=== PATIENT | male | born 1935 | race Caucasian/White ===

== ENCOUNTER 2016-09-09 11:58 | Emergency (ER) | payer OTHER ==
[~2016-09-09] VITALS: Ht 182.9 cm; Wt 81.6 kg
[2016-09-09] MEDS ORDERED: ASPIRIN81 M4 PO (12:24)
[2016-09-09] MEDS ORDERED: XANAX0.25 M1 PO (12:25)
[2016-09-09] MEDS ORDERED: LEXAPRO20 M1 PO (12:26)
[2016-09-09] MEDS ORDERED: LOMOTIL 2.5-0.1 EACH PO (12:26)
[2016-09-09] MEDS ORDERED: TRAZODONE HCL50 M1 PO (12:27)
[2016-09-09] MEDS ORDERED: AMLODIPINE BESY10 M1 PO (12:28)
[2016-09-09] MEDS ORDERED: TOPROL XL25 M1 PO (12:28)
[2016-09-09] MEDS ORDERED: LOVASTATIN40 M1 PO (12:28)
[2016-09-09] MEDS ORDERED: GERI MUCIL PO (12:29)
[2016-09-09] MEDS ORDERED: ACIDOPHILUS1 EACH PO (12:29)
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
[2016-09-09 13:13] LABS: ABSOLUTE BASOPHIL COUNT 0 /CUMM (0.0-0.2); ABSOLUTE EOSINOPHIL COUNT 0.1 /CUMM (0.0-0.7); ABSOLUTE GRANULOCYTE CT 6.2 /CUMM (1.4-6.5); ABSOLUTE LYMPH COUNT 1.3 /CUMM (1.2-3.4); ABSOLUTE MONOCYTE COUNT 0.6 /CUMM (0.10-0.60); BASOPHIL % 0.4 % (0.0-2.0); EOSINOPHIL % 1.3 % (0-5); HEMATOCRIT 35.1 % (42-52); MEAN CORPUSCULAR HGB 29.3 PG (27.0-31.0); MEAN CORPUSCULAR HGB CONC 33.3 G/DL (33.0-37.0); MEAN CORPUSCULAR VOLUME 87.9 FL (80.0-94.0); MEAN PLATELET VOLUME 8.6 FL (7.4-10.4); PLATELET COUNT 216 /CUMM (130-400); WHITE BLOOD CELL COUNT 8.2 /CUMM (4.8-10.8)
[2016-09-09 13:14] LABS: GRANULOCYTE % 75.1 % (42.2-75.2)
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
[2016-09-09 18:41] VITALS: BP 129/76
== END 2016-09-09 18:42 ==
LOC: ERH 11:58
PROVIDERS: Physician Assistant Medical
DX: F03.90 Unspecified dementia, unspecified severity, without behavioral disturbance, psychotic disturbance, mood disturbance, and anxiety (principal)
CPT/HCPCS: 80307; 81001; 93005; 93010; 96374; 96375; G0463; G0480; J1200; J1630

== ENCOUNTER 2017-05-18 16:24 | Inpatient (IN) | payer OTHER ==
[~2017-05-18 16:24] MED LIST: ACIDOPHILUS1 EACH PO; AMLODIPINE BESY10 M1 PO; ASPIRIN81 M4 PO; GERI MUCIL PO; LEXAPRO20 M1 PO; LOMOTIL 2.5-0.1 EACH PO; LOVASTATIN40 M1 PO; TOPROL XL25 M1 PO; TRAZODONE HCL50 M1 PO; XANAX0.25 M1 PO
--- NOTE | 2017-05-18 16:37 | ED MVC/FALL/TRAUMA COMPLAINT ---
History of Present Illness General Chief Complaint: Fall Stated Complaint: BIBA S/P FALL W HEADLAC, CONFUSED AT BASELINE Source: old records, EMS Exam Limitations: dementia Vital Signs & Intake/Output Vital Signs & Intake/Output Vital Signs Date Time Temp Pulse Resp B/P B/P Pulse O2 O2 Flow FiO2 Mean Ox Delivery Rate 05/18 2026 98.7 72 18 148/73 95 Room Air 05/18 1637 97 Room Air 05/18 1631 79 18 101/58 99 Room Air Allergies Coded Allergies: No Known Allergies (05/18/17) Reconcile Medications Alprazolam (Xanax) 0.25 MG TABLET 1 TAB PO QPM UNKNOWN (Reported) Amlodipine Besylate 10 MG TABLET 1 TAB PO DAILY HEART (Reported) Aspirin (Aspirin*) 81 MG TAB.CHEW 1 TAB PO DAILY HEART HEALTH (Reported) Diphenoxylate HCl/Atropine (Lomotil 2.5-0.025 MG Tablet) 2.5 MG-0.025 MG TABLET 1 TAB PO BID DIARRHEA (Reported) Escitalopram Oxalate (Lexapro) 20 MG TABLET 1 TAB PO DAILY MENTAL HEALTH ( Reported) Lactobacillus Acidophilus (Acidophilus) 1 EACH CAPSULE 1 CAP PO DAILY GI ( Reported) Lovastatin 40 MG TABLET 1 TAB PO 1800 CHOLESTEROL (Reported) with food Metoprolol Succ XL (Toprol XL) 25 MG TAB 1 TAB PO DAILY HEART (Reported) Psyllium Husk/Aspartame (Iris-Mucil Powder) 3.4 GRAM/5.8 GRAM POWDER 1 TSP PO DAILY GI (Reported) Trazodone HCl 50 MG TABLET 0.25 TAB PO BID MENTAL HEALTH (Reported) Triage Note: 81M BIBA FROM [facility] S/P ?WITNESSED FALL. PT ARRIVES WITH BLOOD TO FACE AND GAUZE WRAP APPLIED TO HEAD. PER [facility] STAFF PT HAS HX OF DEMENTIA AND IS ACTING AT BASELINE. NO FACIAL DROOP OR FOCAL NEURODEFICITS OBSERVED. PERRLA. CONFUSED. -CSPINE TENDERNESS ON PALPATION. DENIES ABD PAIN, N/V/D. BLEEDING CONTROLLED AT THIS TIME. PAPERWORK IN CHART Triage Nurses Notes Reviewed? yes Onset: Abrupt Duration: constant Timing: single episode today Severity: moderate Severity Numbers: 5 HPI: Patient is a 81-year-old male with a past medical history of Alzheimer's dementia which history is limited however patient resides at [facility] for an unwitnessed fall today where patient suffered a gash to his for head in which bleeding was controlled prior to arrival. Staff indicates the patient is acting at baseline (Trevon Felix) Past History Travel History Traveled to [place] past 21 day No Medical History Any Pertinent Medical History? see below for history Neurological: Alzheimer's disease, dementia EENT: NONE Cardiovascular: hypertension, hyperlipidemia, RIGHT BUNDLE BRANCH BLOCK Respiratory: NONE Gastrointestinal: NONE Hepatic: NONE Renal: NONE Musculoskeletal: gout, osteoarthritis Psychiatric: depression, MDD Endocrine: diabetes Blood Disorders: anemia Surgical History Surgical History: non-contributory Psychosocial History Who do you live with Other (see notes) What is your primary language Salvadorean Tobacco Use: Never used Family History Hx Contributory? No (Trevon Felix) Review of Systems Review of Systems Constitutional: Reports: no symptoms. Eyes: Reports: no symptoms. Ears, Nose, Throat, Mouth: Reports: no symptoms. Respiratory: Reports: no symptoms. Cardiovascular: Reports: no symptoms. Gastrointestinal/Abdominal: Reports: no symptoms. Genitourinary: Reports: no symptoms. Musculoskeletal: Reports: see HPI. Skin: Reports: see HPI. Neurological/Psychological: Reports: see HPI. All Other Systems: Reviewed and Negative (Trevon Felix) Physical Exam Physical Exam General Appearance: no apparent distress, alert, comfortable Head: evidence of injury Eyes: Bilateral: normal appearance, PERRL. Neck: normal inspection, supple, full range of motion, no midline tenderness Respiratory: normal breath sounds, chest non-tender Cardiovascular: regular rate/rhythm Gastrointestinal: normal bowel sounds, soft, non-tender Neurologic/Psych: awake, alert Comments: Left wrist noted generalized tenderness and ecchymosis Bilateral shoulders nontender full active range of motion Bilateral elbows nontender full active range of motion Bilateral lower extremities full active range of motion nontender hip knee and ankle Diagram Head: 1) Noted 4 cm subcutaneous gaping irregular laceration with noted dry blood Core Measures ACS in differential dx? No CVA/TIA Diagnosis No Sepsis Present: No Sepsis Focused Exam Completed? No (Trevon Felix) Progress Differential Diagnosis: abd injury, C/T/L spine injury, ext injury, ICH, pelvis injury, pnemothorax, spinal cord injury, FX Plan of Care: Orders Procedure Date/time Status Heart Healthy Diet 05/19 B Active Pathway - chart 05/18 2116 Active House Staff 05/18 2116 Active Patient Data 05/18 2116 Active Code Status 05/18 2116 Active Patient Data 05/18 2010 Active RAPID VIRAL INFLUENZA A 05/18 1956 Complete URINALYSIS 05/18 1956 Complete ED Holding Orders 05/18 1852 Active Vital Signs 05/18 1852 Active Code Status 05/18 185 Complete Admit to inpatient 05/18 185 Active TROPONIN LEVEL 05/18 1806 Complete COMPREHENSIVE METABOLIC PANEL 05/18 1806 Complete CBC WITHOUT DIFFERENTIAL 05/18 1806 Complete EKG 05/18 180 Active Intake & Output 05/18 1633 Active VTE Mechanical Prophylaxis 05/18 UNK Active Vital Signs 05/18 UNK Active MISTAKE 05/18 UNK Active Intake & Output 05/18 UNK Active Hemoccult 05/18 UNK Active FingerStick- Glucose 05/18 UNK Active CMS- Neurovascular Checks 05/18 UNK Active Laboratory Tests 05/18/171958: Urinalysis LIGHT H, Urine Color YEL, Urine Clarity HAZY H, Urine pH 6.0, Ur Specific Edmond[place] 1.025, Urine Protein TRACE H, Urine Ketones NEG, Urine Nitrite NEG, Urine Bilirubin NEG, Urine Urobilinogen 0.2, Ur Leukocyte Esterase MOD H, Ur Microscopic SEDIMENT EXAMINED, Urine WBC > 75 H, Ur Epithelial Cells RARE, Urine Bacteria RARE H, Urine Mucus FEW, Urine Hemoglobin NEG, Urine Glucose NEG 05/18/171954: Anion Gap 11, Estimated GFR 42 L, BUN/Creatinine Ratio 18.8, Glucose 108 H, Calcium 9.5, Total Bilirubin 0.3, AST 21, ALT 29, Alkaline Phosphatase 92, Troponin I < 0.01, Total Protein 6.3, Albumin 3.6, Globulin 2.7, Albumin/ Globulin Ratio 1.3, CBC w Diff NO MAN DIFF REQ, RBC 3.63 L, MCV 88.3, MCH 29.2, MCHC 33.0, RDW 13.5, MPV 8.4, Gran % 82.2 H, Lymphocytes % 11.5 L, Monocytes % 5.5, Eosinophils % 0.4, Basophils % 0.4, Absolute Granulocytes 10.9 H, Absolute Lymphocytes 1.5, Absolute Monocytes 0.7 H, Absolute Eosinophils 0.1, Absolute Basophils 0 Microbiology 05/18 1958 NASOPHARYN: Influenza Virus A & B Rapid Smear - COMP Per nursing staff that patient is acting at baseline Patient denies any current complaints Patient has no neurological deficits on exam however I did discuss CT scan results of critical findings of focal subarachnoid hemorrhage I discussed patient's admission to who was aware I discussed patient with neurosurgeon Dr. Kaur was aware and at this time advised no emergent warranting of intervention and will consult Discuss admission with surgical PA I also discussed patient's fracture with Dr. Winn who advised patient to be placed in anterior posterior wrist splint and thumb spica Pre-and post-neurovascular was intact after splinting was applied in the emergency room to left thumb and wrist Diagnostic Imaging: Viewed by Me: Radiology Read, CT Scan. Discussed w/RAD: CT Scan. Radiology Impression: acute abnormality, fracture Initial ED EK BPM,NSR Comments: PATIENT: TERRANCE PANDEY PRESENT AGE: 81 PATIENT ACCOUNT NO: [id number] : 37 LOCATION: [facility] ORDERING PHYSICIAN: Trevon DEAN SERVICE DATE: 05/18/17 EXAM TYPE: CAT - CT CERV SPINE WO IV CONTRAST; CT HEAD WO IV CONTRAST EXAMINATION: CT HEAD W/O IV CONTRAST CT CERVICAL SPINE W/O IV CONTRAST CLINICAL INFORMATION: 81-year-old male with history of head trauma and dementia. COMPARISON: None TECHNIQUE: Head - Contiguous axial imaging of the head was performed from the skull base to the vertex without the administration of intravenous contrast, and axial images are reconstructed at 0.625 mm, 2.5 mm and 5 mm slice thickness. Cervical spine - A volumetric, helical CT acquisition of the cervical spine was obtained without contrast; in addition to the standard set of axial images, multiplanar reformatted images were provided in the coronal and sagittal imaging planes. DLP: 1286 mGy-cm (total) FINDINGS: HEAD: Soft tissue laceration of the left frontal scalp. The underlying calvarium is intact. There is focal hyperdense subarachnoid hemorrhage overlying the anteroinferior aspect left inferior frontal gyrus (image 19, series 4). [id number]-zy-[id number] atrophy of cerebral hemispheres with commensurate prominence of ventricles, sulci and cisterns. Atherosclerotic calcification of cavernous carotid arteries. No acute findings within the posterior fossa. The stanley-white matter differentiation is maintained. No evidence of an acute major vascular territory infarction. The visualized paranasal sinuses, mastoid air cells and middle ear cavities are well aerated. Lenses have been extracted from each globe. No acute fracture or malalignment at either temporomandibular joint. CERVICAL SPINE: There is kyphotic curvature of the degenerated cervical spine. Multilevel facet osteoarthritis, most severe on the left at C2-C3 and C3-C4, and there is facet ankylosis at C4-C5. The degenerative disc disease is severe at C4-C5, C5-C6, C6-C7 and C7-T1. There is minimal degenerative anterolisthesis at C3-C4. No acute fracture, traumatic subluxation or prevertebral soft tissue swelling. No acute findings in visualized lung apices. Thyroid gland is unremarkable. No fluid collections within the neck. Atherosclerotic calcification of carotid bulbs and proximal ICAs. IMPRESSION: 1. Soft tissue laceration of the left frontal scalp. In this region, there is focal subarachnoid hemorrhage overlying the anteroinferior aspect of the left inferior frontal gyrus. No evidence of parenchymal hemorrhage, subdural hemorrhage, mass or midline shift. 2. No acute findings within the degenerated, kyphotic cervical spine. The critical test result was discussed Trevon Martinez at 6:37 PM on 05/18/2017 it was ascertained that the content and the importance of the findings was understood at the time of the direct communication. DICTATED BY: Jonnie Albright MD DATE/TIME DICTATED:05/18/171820 POSTAL SORTING OFFICER:DANIE DATE/TIME TRANSCRIBED:05/18/171820 (Trevon Felix) Departure Departure Disposition: STILL A PATIENT Condition: Guarded Clinical Impression Primary Impression: Subarachnoid bleed Secondary Impressions: Distal end of ulna fracture, closed, Forehead laceration Referrals: Lio CHASE,Leonie Story (PCP/Family) Departure Forms: Customer Survey General Discharge Information Admission Note Spoke With: Anton CHASE,Sonya Documentation of Exam: Documentation of any treatments & extenuating circumstances including Concerns Regarding Discharge (functional status, medication knowledge or non-compliance, living conditions, etc.) that warrant an admission rather than observation: [ Patient requires ICU admission for concerns of subarachnoid hemorrhage patient requires frequent neurological checks repeat imaging neurosurgery consultation orthopedic consultation] (Trevon Felix) Departure Comments I have seen and personally examined the patient. The case was discussed with Dr. Rodriguez who will consult. The case was discussed with Dr. Kaur. The surgical DIANNE Lopes has been down and evaluated the patient. (Herman Granados DO) Procedures Splinting Manual Alignment Performed: No Hand-Made Type: orthoglass Splint: thumb spica Splint Applied By: splint applied by me Pre-Proc Neuro Vasc Exam: normal Post-Proc Neuro Vasc Exam: normal Laceration/Wound Repair Laceration/Wound Repair: Wound Location: head Wound's Depth, Shape: irregular, subcutaneous Wound Length (cm): 4 Wound Explored: clean, no foreign body removed, irrigated extensively Irrigated w/ Saline (ccs): 360 Betadine Prep? Yes Anesthesia: 1% lidocaine Volume Anesthetic (ccs): 4 Wound Repaired With: sutures Suture Size/Type: 5:0 Number of Sutures: 6 Layer Closure? No Progress: Initially L.E.T WAS APPLIED Margins were revised the suture placement patient tolerated well (Trevon Felix) Critical Care Note Critical Care Note Critical Care Time: 30-74 min (Trevon Felix)
--- NOTE | 2017-05-18 18:15 | RADIOLOGY REPORT ---
EXAMINATION: XR WRIST, LEFT CLINICAL INFORMATION: Left wrist pain after trauma COMPARISON: None TECHNIQUE: Left wrist, 2 views FINDINGS: There is a nondisplaced fracture involving the anterior cortex of the distal radial metaphysis. Also, there is an obliquely oriented fracture through the lateral cortex of the distal ulnar metaphysis resulting in 0.2 cm of cortical bone offset in this region. The radiocarpal and ulnocarpal joint spaces are maintained. The scapholunate distance is 0.4 cm wide. This suggests possibility of stretching or tearing of the scapholunate ligament. Is mild osteoarthritis of the first carpometacarpal joint. Soft tissues are swollen around the wrist. Peripheral vascular calcifications are seen. IMPRESSION: 1. Acute fractures of the distal radius and ulna are not significantly displaced. 2. Scapholunate distance is mildly widened; this suggests possibility of stretching or tearing of the scapholunate ligament.
--- NOTE | 2017-05-18 18:41 | CT SCAN REPORT ---
EXAMINATION: CT HEAD W/O IV CONTRAST CT CERVICAL SPINE W/O IV CONTRAST CLINICAL INFORMATION: 81-year-old male with history of head trauma and dementia. COMPARISON: None TECHNIQUE: Head - Contiguous axial imaging of the head was performed from the skull base to the vertex without the administration of intravenous contrast, and axial images are reconstructed at 0.625 mm, 2.5 mm and 5 mm slice thickness. Cervical spine - A volumetric, helical CT acquisition of the cervical spine was obtained without contrast; in addition to the standard set of axial images, multiplanar reformatted images were provided in the coronal and sagittal imaging planes. DLP: 1286 mGy-cm (total) FINDINGS: HEAD: Soft tissue laceration of the left frontal scalp. The underlying calvarium is intact. There is focal hyperdense subarachnoid hemorrhage overlying the anteroinferior aspect left inferior frontal gyrus (image 19, series 4). Szqivmwa-sh-ksljkr atrophy of cerebral hemispheres with commensurate prominence of ventricles, sulci and cisterns. Atherosclerotic calcification of cavernous carotid arteries. No acute findings within the posterior fossa. The stanley-white matter differentiation is maintained. No evidence of an acute major vascular territory infarction. The visualized paranasal sinuses, mastoid air cells and middle ear cavities are well aerated. Lenses have been extracted from each globe. No acute fracture or malalignment at either temporomandibular joint. CERVICAL SPINE: There is kyphotic curvature of the degenerated cervical spine. Multilevel facet osteoarthritis, most severe on the left at C2-C3 and C3-C4, and there is facet ankylosis at C4-C5. The degenerative disc disease is severe at C4-C5, C5-C6, C6-C7 and C7-T1. There is minimal degenerative anterolisthesis at C3-C4. No acute fracture, traumatic subluxation or prevertebral soft tissue swelling. No acute findings in visualized lung apices. Thyroid gland is unremarkable. No fluid collections within the neck. Atherosclerotic calcification of carotid bulbs and proximal ICAs. IMPRESSION: 1. Soft tissue laceration of the left frontal scalp. In this region, there is focal subarachnoid hemorrhage overlying the anteroinferior aspect of the left inferior frontal gyrus. No evidence of parenchymal hemorrhage, subdural hemorrhage, mass or midline shift. 2. No acute findings within the degenerated, kyphotic cervical spine. The critical test result was discussed Trevon Martinez at 6:37 PM on 05/18/2017 it was ascertained that the content and the importance of the findings was understood at the time of the direct communication.
[2017-05-18 20:21] LABS: ABSOLUTE BASOPHIL COUNT 0 /CUMM (0.0-0.2); ABSOLUTE EOSINOPHIL COUNT 0.1 /CUMM (0.0-0.7); ABSOLUTE GRANULOCYTE CT 10.9 /CUMM (1.4-6.5); ABSOLUTE LYMPH COUNT 1.5 /CUMM (1.2-3.4); ABSOLUTE MONOCYTE COUNT 0.7 /CUMM (0.10-0.60); BASOPHIL % 0.4 % (0.0-2.0); EOSINOPHIL % 0.4 % (0-5); GRANULOCYTE % 82.2 % (42.2-75.2); HEMATOCRIT 32.1 % (42-52); MEAN CORPUSCULAR HGB 29.2 PG (27.0-31.0); MEAN CORPUSCULAR VOLUME 88.3 FL (80.0-94.0); MEAN PLATELET VOLUME 8.4 FL (7.4-10.4); PLATELET COUNT 281 /CUMM (130-400); RBC DISTRIBUTION WIDTH 13.5 % (11.5-14.5); RED BLOOD CELL CT 3.63 /CUMM (4.70-6.10); WHITE BLOOD CELL COUNT 13.3 /CUMM (4.8-10.8)
--- NOTE | 2017-05-18 20:58 | History & Physical ---
Markell Dunaway 05/18/172056: General Information and HPI MD Statement: I have seen and personally examined TERRANCE PANDEY and documented this H&P. Source of Information: old records, [facility] staff Exam Limitations: unable to give history, confusion, dementia History of Present Illness: This is a 81 year-old gentleman with past medical history significant for Alzheimer's disease, hyperlipidemia, iron deficiency anemia, gout, hypertension, major depressive disorder, type 2 diabetes, osteoarthritis, right bundle branch block who was brought to the hospital from [facility] ([facility] after having an episode of unwitnessed fall with laceration to his head. The patient is confused and disoriented. He is unable to provide any history or review of system. However, he denies having any headache, chest pain, dizziness , lightheadedness, nausea, vomiting, abdominal pain. He does not remember what happened today or why he was brought to the hospital. I contacted [facility] and spoke with the nursing supervisor ship maintenance services Ms. Reynaga. She did not personally take care of the patient today however was able to provide some history. Apparently patient was found on the floor around 3:50 PM today. His alert and occasionally confused at baseline has episodes of combativeness. He is able to walk independently. At baseline, he is able to communicate and express himself if he has any complaints/symptoms. Angie Reynaga is unsure what exactly happened when patient fell. Upon presentation to the ED the patient was noted to have left frontal scalp soft tissue laceration and focal arachnoid hemorrhage on the anterior aspect of the left inferior frontal gyrus. Also he had an acute fracture of distal radius and ulna which was not significantly displaced. Neurosurgery and orthopedic was consulted in the ED. Allergies/Medications Allergies: Coded Allergies: No Known Allergies (05/18/17) Home Med list Alprazolam (Xanax) 0.25 MG TABLET 1 TAB PO QPM UNKNOWN (Reported) Amlodipine Besylate 10 MG TABLET 1 TAB PO DAILY HEART (Reported) Aspirin (Aspirin*) 81 MG TAB.CHEW 1 TAB PO DAILY HEART HEALTH (Reported) Diphenoxylate HCl/Atropine (Lomotil 2.5-0.025 MG Tablet) 2.5 MG-0.025 MG TABLET 1 TAB PO BID DIARRHEA (Reported) Donepezil HCl (Aricept) 10 MG TABLET 1 TAB PO QPM mental health (Reported) Escitalopram Oxalate (Lexapro) 20 MG TABLET 1 TAB PO DAILY MENTAL HEALTH ( Reported) Lactobacillus Acidophilus (Acidophilus) 1 EACH CAPSULE 1 CAP PO DAILY GI ( Reported) Lovastatin 40 MG TABLET 1 TAB PO 1800 CHOLESTEROL (Reported) with food Memantine HCl (Namenda XR) 28 MG CAP.SPR.24 1 CAP PO DAILY dementia (Reported ) Metoprolol Succ XL (Toprol XL) 25 MG TAB 1 TAB PO DAILY HEART (Reported) Multivitamin (One Daily Multivitamin) 1 EACH TABLET 1 TAB PO DAILY heart health (Reported) Psyllium Husk/Aspartame (Iris-Mucil Powder) 3.4 GRAM/5.8 GRAM POWDER 1 TSP PO DAILY GI (Reported) Trazodone HCl 50 MG TABLET 0.25 TAB PO BID MENTAL HEALTH (Reported) Past History Travel History Traveled to [place] past 21 day No Medical History Neurological: Alzheimer's disease, dementia EENT: NONE Cardiovascular: hypertension, hyperlipidemia, RIGHT BUNDLE BRANCH BLOCK Respiratory: NONE Gastrointestinal: NONE Hepatic: NONE Renal: NONE Musculoskeletal: gout, osteoarthritis Psychiatric: depression, MDD Endocrine: diabetes Blood Disorders: anemia Surgical History Surgical History: non-contributory Review of Systems Review of Systems Constitutional: Reports: no symptoms. Comments Patient is unable to provide any review of systems. Exam & Diagnostic Data Last 24 Hrs of Vital Signs/I&O Vital Signs Date Time Temp Pulse Resp B/P B/P Pulse O2 O2 Flow FiO2 Mean Ox Delivery Rate 05/18 2359 98 Room Air 05/18 235 98.6 75 22 130/70 98 Room Air 05/18 2200 99.3 76 18 136/78 95 05/18 2140 95 Room Air 05/18 2139 98.9 79 20 167/94 96 Room Air 05/18 2026 98.7 72 18 148/73 95 Room Air 05/18 1637 97 Room Air 05/18 1631 79 18 101/58 99 Room Air Intake & Output 05/19 0800 05/19 0000 05/18 1600 Intake Total 120 Output Total Balance 120 Intake, Oral 120 Physical Exam General Appearance oriented to person only, Confused Skin left frontal laceration s/p suture Skin Temp/Moisture Exam: Warm/Dry HEENT see skin exam Neck Supple Lymphatic Axillary nl, Cervical nl Cardiovascular Regular Rate, Normal S1, Normal S2, No Murmurs, Gallops, Rubs Lungs Clear to Auscultation, Normal Air Movement, ant auscultation Abdomen Normal Bowel Sounds, Soft, No Tenderness, No Hepatospenomegaly, No Masses Neurological Normal Tone, Patient not cooperative with complete neuro exam. Extremities No Clubbing, No Cyanosis, No Edema, Normal Pulses, No Tenderness/ Swelling, Left wrist in splint, ROM and sensation intact in RUE and both LEs Diagnostic Data EKG Results Right bundle branch block, sinus rhythm, rate 74, no significant ST-T wave abnormalities compared to prior EKG Other Results Left wrist xray: 1. Acute fractures of the distal radius and ulna are not significantly displaced.2. Scapholunate distance is mildly widened; this suggests possibility of stretching or tearing of the scapholunate ligament. Head and cervical spine CT: 1. Soft tissue laceration of the left frontal scalp. In this region, there is focal subarachnoid hemorrhage overlying the anteroinferior aspect of the left inferior frontal gyrus. No evidence of parenchymal hemorrhage, subdural hemorrhage, mass or midline shift. 2. No acute findings within the degenerated, kyphotic cervical spine. Assessment/Plan Assessment: This is a 81 year-old gentleman with past medical history significant for Alzheimer's disease, hyperlipidemia, iron deficiency anemia, gout, hypertension, major depressive disorder, type 2 diabetes, osteoarthritis, right bundle branch block who was brought to the hospital from [facility]) after having an episode of unwitnessed fall with laceration to his head. Upon presentation to the ED the patient was noted to have left frontal scalp soft tissue laceration and focal arachnoid hemorrhage on the anterior aspect of the left inferior frontal gyrus. Also he had an acute fracture of distal radius and ulna which was not significantly displaced. Neurosurgery and orthopedic was consulted in the ED. Problem list: #Subarachnoid hemorrhage #Acute fracture of distal radius and ulna #Alzheimer's dementia Plan * Monitor in the ICU * Neuro checks every 2 hours * Avoid blood pressure over 140/80 Follow-up neurosurgery recommendations * NPO * Avoid ASA, NSAIDS, ACs * Avoid sedatives /opioids * Vascular imaging as per neurosurgery * Avoid Rodriguez catheter * Sitter * Patient reported to have type 2 diabetes however not on any diabetic medications, will monitor Accu-Cheks; insulin sliding scale if needed. * DVT PPX ALPS * Patient is DNI/DNR As Ranked By This Provider Problem List: 1. Subarachnoid bleed 2. Dementia 3. Head trauma Core Measures/Misc (11/29) Acute Coronary Syndrome ACS Diagnosis: No Congestive Heart Failure Congestive Heart Failure Diagnosis No Cerebrovascular Accident CVA/TIA Diagnosis: No VTE (View Protocol) VTE Risk Factors Age>40 No Mechanical VTE Prophylaxis d/t N/A MechProphylax Ordered No VTE Pharm Prophylaxis d/t Other (SAH) Sepsis (View protocol) Sepsis Present: No Anton CHASE, [facility] 05/18/17 2317: Attending MD Review Statement Attending Statement Attending MD Statement: examined this patient, discuss w/resident/PA/CMM INSPECTOR, agreed w/resident/PA/CMM INSPECTOR, reviewed images, amended to note Attending Assessment/Plan: 81 yo M with advanced Alzheimer's dementia, depression, HTN, T2DM, CKD stage 3, OA, NAVEED, gout, who is a resident of [facility], is sent in after an unwitnessed fall at the facility resulting in a large laceration to the left temporal region. Patient is confused at baseline, does not provide any history. He currently denies any pain, dizziness, palpitations, dyspnea or chest discomfort. Vitals stable. Limited neuro exam is nonfocal, patient moving all extremities, no obvious facial droop, speech is clear, Left forehead/temporal region laceration is sutured dressing+. Left upper extremity is splinted. Peripheral pulses well felt. Chest clear anteriorly, Heart S1S2 regular. LE: no edema. Labs: WBC 13.3, BUN 30, creat 1.6 (baseline 1.3 1.4), trop neg, UA trace proteinuria, WBC> 75. CT head/cervical spine: soft tissue laceration of left frontal scalp, focal subarachnoid hemorrhage+, no parenchymal hemorrhage or SDH. Spine intact. Wrist Xray: acute fracture of distal radius and ulna not significantly displaced. ?stretching or tearing of scapholunate ligament. EKG: sinus rhythm, RBBB, Qtc 462. Assessment and plan: 1. Unwitnessed fall, no LOC 2. Advanced alzheimer's dementia 3. Focal subarachnoid hemorrhage 4. Left distal radius-ulna fracture 5. Forehead laceration sutured in the ER 6. Leukocytosis likely reactive 7. ELIAN on CKD stage 3 - Admit to ICU - Vitals Q1 hour - Neurochecks Q2 - NPO for now - Fall precautions - Neurosurgery (Dr. Kaur) consulted by ER, no surgical intervention at this point - Repeat CT head in AM - Watch for any mental status changes - Ortho consult (Dr. Winn) - Left upper extremity wrist splint placed in ER - Neurovascular checks Q2 - Pain management with Tylenol - Hold aspirin. No NSAIDs or opiates - Gentle hydration - CRCU consult - Maintain sitter as patient is confused and tends to pick on lines and forehead dressing - Resume home meds from AM namenda, lexapro, metoprolol, lovastatin, amlodipine and donapezil. - Hold trazodone and ativan for now - Forehead laceration suture removal in 7-10 days, local dressing, watch for bleeding DVT ppx Alps. DNR/I. TTS > 35 mins.
[2017-05-18 22:00] VITALS: BP 136/78
--- NOTE | 2017-05-18 23:18 | Admission Certification ---
Admission Certification Certification Statement - As attending physician, I certify that at the time of - admission, based on clinical presentation, severity of - symptoms, need for further diagnostic testing and - therapeutic interventions, and risk of adverse outcomes - without in-hospital treatment, in my clinical assessment, - this patient requires an acute hospital stay for a minimum - of two nights or longer. I have also considered psychsocial - factors such as support system, advanced age, financial - issues, cognitive issues, and failed out-patient treatments, - past re-admission history, safety of patient, and lack of - compliance as applicable. Specific rationale supporting this admission is: Unwitnessed fall, focal SAH, left wrist distal radius and ulna fracture, needs frequent neurochecks and 24 hour ICU level of care.
--- NOTE | 2017-05-18 23:34 | Cons- Neurosurgical ---
General Information and HPI Consulting Request Date of Consult: 05/18/17 Requested By: Anton CHASE,Sonya Reason for Consult: Intracranial bleed/head injury Source of Information: patient, old records, ER staff Exam Limitations: dementia History of Present Illness: 81-year-old male with Alzheimer's dementia who resides in nursing facility presents to the emergency department after an unwitnessed fall which she was found on the floor with a laceration to left side of the forehead. Per the nursing staff at the extended care facility, patient is at baseline mental status where he is demented and confused. Upon arrival to the emergency room they tend to his laceration and CT scan was ordered of the head and neck as well as x-rays of the left wrist. CT scan positive for intracranial hemorrhage. Left wrist x-rays positive for fracture which has already been splinted by the ER staff. At time of my evaluation patient is resting comfortably in the ER, he has no complaints, he denies any pain, he does not recall the events leading to his fall and he is pleasantly confused Allergies/Medications Allergies: Coded Allergies: No Known Allergies (05/18/17) Home Med List: Alprazolam (Xanax) 0.25 MG TABLET 1 TAB PO QPM UNKNOWN (Reported) Amlodipine Besylate 10 MG TABLET 1 TAB PO DAILY HEART (Reported) Aspirin (Aspirin*) 81 MG TAB.CHEW 1 TAB PO DAILY HEART HEALTH (Reported) Diphenoxylate HCl/Atropine (Lomotil 2.5-0.025 MG Tablet) 2.5 MG-0.025 MG TABLET 1 TAB PO BID DIARRHEA (Reported) Escitalopram Oxalate (Lexapro) 20 MG TABLET 1 TAB PO DAILY MENTAL HEALTH ( Reported) Lactobacillus Acidophilus (Acidophilus) 1 EACH CAPSULE 1 CAP PO DAILY GI ( Reported) Lovastatin 40 MG TABLET 1 TAB PO 1800 CHOLESTEROL (Reported) with food Metoprolol Succ XL (Toprol XL) 25 MG TAB 1 TAB PO DAILY HEART (Reported) Psyllium Husk/Aspartame (Iris-Mucil Powder) 3.4 GRAM/5.8 GRAM POWDER 1 TSP PO DAILY GI (Reported) Trazodone HCl 50 MG TABLET 0.25 TAB PO BID MENTAL HEALTH (Reported) Past History Medical History Neurological: Alzheimer's disease, dementia EENT: NONE Cardiovascular: hypertension, hyperlipidemia, RIGHT BUNDLE BRANCH BLOCK Respiratory: NONE Gastrointestinal: NONE Hepatic: NONE Renal: UTI Musculoskeletal: gout, osteoarthritis Psychiatric: depression, MDD Endocrine: diabetes Blood Disorders: anemia Surgical History Pertinent Surgical History: non-contributory Psychosocial History Where Do You Live? Extended Care Facility Smoking Status: Unknown If Ever Smoked Review of Systems Review of Systems: Unable to determine secondary to patient's dementia Exam & Diagnostic Data Vital Signs and I&O Vital Signs Date Time Temp Pulse Resp B/P B/P Pulse O2 O2 Flow FiO2 Mean Ox Delivery Rate 05/18 2199 99.3 76 18 136/78 95 05/18 2140 95 Room Air 05/18 2139 98.9 79 20 167/94 96 Room Air 05/18 2026 98.7 72 18 148/73 95 Room Air 05/18 1637 97 Room Air 05/18 1631 79 18 101/58 99 Room Air Physical Exam: Well-developed well-nourished no apparent distress. HEENT: Laceration to left side of the superior forehead. No active bleeding. Mild swelling to this area as well Extraocular motions intact, pupils equally round and reactive. Neck: Supple, no lymphadenopathy, no neck pain, full range of motion Heart: Regular rate and rhythm no murmur Respiratory: No respiratory distress clear to auscultation bilateral Abdomen: Soft nontender nondistended Extremities: No edema, no calf pain Left upper extremity splinted, neurovascularly intact. All 4 extremities are neurovascularly intact with sensation motor grossly intact , no known deficits however patient's exam is somewhat limited secondary to his baseline dementia Neuro: Alert and pleasantly confused Skin: Warm and dry, no rash on exposed skin Last 24 Hours of Labs: Laboratory Tests 05/18 Chemistry Sodium (137 - 145 mmol/L) 139 Potassium (3.5 - 5.1 mmol/L) 4.4 Chloride (98 - 107 mmol/L) 104 Carbon Dioxide (22 - 30 mmol/L) 24 Anion Gap (5 - 16) 11 BUN (9 - 20 mg/dL) 30 H Creatinine (0.7 - 1.2 mg/dL) 1.6 H Estimated GFR (>60 ml/min) 42 L BUN/Creatinine Ratio (7 - 25 %) 18.8 Glucose (65 - 99 mg/dL) 108 H Calcium (8.4 - 10.2 mg/dL) 9.5 Total Bilirubin (0.2 - 1.3 mg/dL) 0.3 AST (17 - 59 U/L) 21 ALT (21 - 72 U/L) 29 Alkaline Phosphatase (< 127 U/L) 92 Troponin I (<0.11 ng/ml) < 0.01 Total Protein (6.3 - 8.2 g/dL) 6.3 Albumin (3.5 - 5.0 g/dL) 3.6 Globulin (1.9 - 4.2 gm/dL) 2.7 Albumin/Globulin Ratio (1.1 - 2.2 %) 1.3 Hematology CBC w Diff NO MAN DIFF REQ WBC (4.8 - 10.8 /CUMM) 13.3 H RBC (4.70 - 6.10 /CUMM) 3.63 L Hgb (14.0 - 18.0 G/DL) 10.6 L Hct (42 - 52 %) 32.1 L MCV (80.0 - 94.0 FL) 88.3 MCH (27.0 - 31.0 PG) 29.2 MCHC (33.0 - 37.0 G/DL) 33.0 RDW (11.5 - 14.5 %) 13.5 Plt Count (130 - 400 /CUMM) 281 MPV (7.4 - 10.4 FL) 8.4 Gran % (42.2 - 75.2 %) 82.2 H Lymphocytes % (20.5 - 51.1 %) 11.5 L Monocytes % (1.7 - 9.3 %) 5.5 Eosinophils % (0 - 5 %) 0.4 Basophils % (0.0 - 2.0 %) 0.4 Absolute Granulocytes (1.4 - 6.5 /CUMM) 10.9 H Absolute Lymphocytes (1.2 - 3.4 /CUMM) 1.5 Absolute Monocytes (0.10 - 0.60 /CUMM) 0.7 H Absolute Eosinophils (0.0 - 0.7 /CUMM) 0.1 Absolute Basophils (0.0 - 0.2 /CUMM) 0 Urines Urinalysis LIGHT H Urine Color (YEL,AMB,STR) YEL Urine Clarity (CLEAR) HAZY H Urine pH (5.0 - 8.0) 6.0 Ur Specific [place] (1.001 - 1.035) 1.025 Urine Protein (NEG,<30 MG/DL) TRACE H Urine Ketones (NEG) NEG Urine Nitrite (NEG) NEG Urine Bilirubin (NEG) NEG Urine Urobilinogen (0.1 - 1.0 EU/dl) 0.2 Ur Leukocyte Esterase (NEG) MOD H Ur Microscopic SEDIMENT EXAMINED Urine WBC (0 - 2 /HPF) > 75 H Ur Epithelial Cells (NONE,FEW) RARE Urine Bacteria (NEG/NONE) RARE H Urine Mucus (FEW,NONE) FEW Urine Hemoglobin (NEG) NEG Urine Glucose (N MG/DL) NEG Imaging Results: PATIENT: TERRANCE PANDEY PRESENT AGE: 81 PATIENT ACCOUNT NO: [id number] : 37 LOCATION: [facility] ORDERING PHYSICIAN: Trevon DEAN SERVICE DATE: 05/18/17 EXAM TYPE: CAT - CT CERV SPINE WO IV CONTRAST; CT HEAD WO IV CONTRAST EXAMINATION: CT HEAD W/O IV CONTRAST CT CERVICAL SPINE W/O IV CONTRAST CLINICAL INFORMATION: 81-year-old male with history of head trauma and dementia. COMPARISON: None TECHNIQUE: Head - Contiguous axial imaging of the head was performed from the skull base to the vertex without the administration of intravenous contrast, and axial images are reconstructed at 0.625 mm, 2.5 mm and 5 mm slice thickness. Cervical spine - A volumetric, helical CT acquisition of the cervical spine was obtained without contrast; in addition to the standard set of axial images, multiplanar reformatted images were provided in the coronal and sagittal imaging planes. DLP: 1286 mGy-cm (total) FINDINGS: HEAD: Soft tissue laceration of the left frontal scalp. The underlying calvarium is intact. There is focal hyperdense subarachnoid hemorrhage overlying the anteroinferior aspect left inferior frontal gyrus (image 19, series 4). Btygfsht-ef-dvrewc atrophy of cerebral hemispheres with commensurate prominence of ventricles, sulci and cisterns. Atherosclerotic calcification of cavernous carotid arteries. No acute findings within the posterior fossa. The stanley-white matter differentiation is maintained. No evidence of an acute major vascular territory infarction. The visualized paranasal sinuses, mastoid air cells and middle ear cavities are well aerated. Lenses have been extracted from each globe. No acute fracture or malalignment at either temporomandibular joint. CERVICAL SPINE: There is kyphotic curvature of the degenerated cervical spine. Multilevel facet osteoarthritis, most severe on the left at C2-C3 and C3-C4, and there is facet ankylosis at C4-C5. The degenerative disc disease is severe at C4-C5, C5-C6, C6-C7 and C7-T1. There is minimal degenerative anterolisthesis at C3-C4. No acute fracture, traumatic subluxation or prevertebral soft tissue swelling. No acute findings in visualized lung apices. Thyroid gland is unremarkable. No fluid collections within the neck. Atherosclerotic calcification of carotid bulbs and proximal ICAs. IMPRESSION: 1. Soft tissue laceration of the left frontal scalp. In this region, there is focal subarachnoid hemorrhage overlying the anteroinferior aspect of the left inferior frontal gyrus. No evidence of parenchymal hemorrhage, subdural hemorrhage, mass or midline shift. 2. No acute findings within the degenerated, kyphotic cervical spine. The critical test result was discussed Trevon Martinez at 6:37 PM on 05/18/2017 it was ascertained that the content and the importance of the findings was understood at the time of the direct communication. DICTATED BY: Jonnie Albright MD DATE/TIME DICTATED:05/18/171820 INVENTORY CONTROL CLERK:DANIE DATE/TIME TRANSCRIBED:05/18/171820 CONFIDENTIAL, DO NOT COPY WITHOUT APPROPRIATE AUTHORIZATION. <Electronically signed in Other Vendor System> SIGNED BY: Jonnie Albright MD 05/18/171840 Assessment/Plan Assessment/Plan 81-year-old male with a very small focal subarachnoid hemorrhage as result of an unwitnessed fall at his nursing facility where he resides. Plan was discussed with Dr. Kaur, recommend neuro checks every [address] scan of the head, noncontrast at 7 AM. If There is no significant change, patient likely will be able to be discharged back to his nursing facility. No neurosurgical intervention planned at this time Hold all blood thinners/anticoagulants, NSAIDs Please notify us if there is any significant acute mental status change Will follow in the morning Problem List: 1. Subarachnoid bleed 2. Head trauma Consult Acknowledgment - Thank you for your consult request.
[2017-05-18 23:59] VITALS: BP 130/70
[2017-05-19] MEDS ORDERED: NAMENDA XR28 M1 PO (03:45)
[2017-05-19] MEDS ORDERED: ONE DAILY MULT1 EAC2 PO (03:45)
[2017-05-19] MEDS ORDERED: ARICEPT10 M1 PO (03:46)
[2017-05-19 05:35] LABS: ABSOLUTE BASOPHIL COUNT 0.1 /CUMM (0.0-0.2); ABSOLUTE EOSINOPHIL COUNT 0.2 /CUMM (0.0-0.7); ABSOLUTE GRANULOCYTE CT 6.6 /CUMM (1.4-6.5); ABSOLUTE LYMPH COUNT 1.7 /CUMM (1.2-3.4); ABSOLUTE MONOCYTE COUNT 0.8 /CUMM (0.10-0.60); BASOPHIL % 0.6 % (0.0-2.0); EOSINOPHIL % 1.8 % (0-5); GRANULOCYTE % 70.7 % (42.2-75.2); HEMATOCRIT 27.8 % (42-52); MEAN CORPUSCULAR VOLUME 88.3 FL (80.0-94.0); MEAN PLATELET VOLUME 8.7 FL (7.4-10.4); PLATELET COUNT 230 /CUMM (130-400); RBC DISTRIBUTION WIDTH 13.6 % (11.5-14.5); RED BLOOD CELL CT 3.15 /CUMM (4.70-6.10); WHITE BLOOD CELL COUNT 9.3 /CUMM (4.8-10.8)
[2017-05-19 08:00] VITALS: BP 130/70
--- NOTE | 2017-05-19 08:20 | Cons- CRCU ---
Milagros Carrasco 05/19/17 0819: General Information and HPI Consulting Request Date of Consult: 05/19/17 Requested By: Sonya Walton MD Reason for Consult: Subarachnoid hemorrhage Source of Information: family, W10 Exam Limitations: unable to give history, dementia History of Present Illness: 81-year-old gentleman from [facility] with advanced Alzheimer's dementia, depression, HTN, T2DM, CKD stage 3, OA, gout, and admission for unwitnessed fall. Daughter son-in-law and grandson at bedside. On interview patient is pleasantly confused. He forgets what he said in the same sentence. On interview denies being in pain, headaches or difficulty breathing. At Baseline he does ambulate independently and stated that he was trying to ambulate when the fall occurred. Called and spoke to Annia nursing scheduler [employer]valdopool Ryjames. Who states that patient is very compliant and pleasant resident and likes to walk a lot and has no issues with gait. Around 3:50 PM yesterday afternoon, the nurse on the floor heard a noise and found him lying face down in front of the dining room area. He was noted have a laceration and was bleeding which was not responding to compression. No loss of consciousness as she found him immediately. Facility has not noted any any fevers, change in mental status or have heard him complain about anything recently. His blood pressure usually runs around 110/70s. No decrease in by mouth intake noted. Allergies/Medications Allergies: Coded Allergies: No Known Allergies (05/18/17) Home Med List: Alprazolam (Xanax) 0.25 MG TABLET 1 TAB PO QPM UNKNOWN (Reported) Amlodipine Besylate 10 MG TABLET 1 TAB PO DAILY HEART (Reported) Aspirin (Aspirin*) 81 MG TAB.CHEW 1 TAB PO DAILY HEART HEALTH (Reported) Diphenoxylate HCl/Atropine (Lomotil 2.5-0.025 MG Tablet) 2.5 MG-0.025 MG TABLET 1 TAB PO BID DIARRHEA (Reported) Donepezil HCl (Aricept) 10 MG TABLET 1 TAB PO QPM mental health (Reported) Escitalopram Oxalate (Lexapro) 20 MG TABLET 1 TAB PO DAILY MENTAL HEALTH ( Reported) Lactobacillus Acidophilus (Acidophilus) 1 EACH CAPSULE 1 CAP PO DAILY GI ( Reported) Lovastatin 40 MG TABLET 1 TAB PO 1800 CHOLESTEROL (Reported) with food Memantine HCl (Namenda XR) 28 MG CAP.SPR.24 1 CAP PO DAILY dementia (Reported ) Metoprolol Succ XL (Toprol XL) 25 MG TAB 1 TAB PO DAILY HEART (Reported) Multivitamin (One Daily Multivitamin) 1 EACH TABLET 1 TAB PO DAILY heart health (Reported) Psyllium Husk/Aspartame (Iris-Mucil Powder) 3.4 GRAM/5.8 GRAM POWDER 1 TSP PO DAILY GI (Reported) Trazodone HCl 50 MG TABLET 0.25 TAB PO BID MENTAL HEALTH (Reported) Current Medications: Current Medications Sig/Jyoti Start time Last Medication Dose Route Stop Time Status Admin Acetaminophen 1,000 MG Q12H 05/19 1600 AC IV 05/20 1601 Acetaminophen 1,000 MG BID 05/19 0339 DC 05/19 IV 05/20 1001 0424 Dextrose/Sodium 1,000 ML Q13H 05/19 0430 AC / Chloride IV 0437 Lidocaine 1 PAT DAILY 05/19 1000 AC EXT Lidocaine 20 ML ONCE ONE 05/18 1730 DC 05/18 ID 05/18 1731 1735 Lidocaine 0 .STK-MED ONE 05/18 1726 DC .ROUTE Review of Systems Review of Systems Constitutional: Denies: chills, diaphoresis, fever, malaise, weakness, unexplained weight loss. Cardiovascular: Denies: chest pain, edema, orthopena, palpitations, peripheral edema, syncope. Respiratory: Denies: cough, hemoptysis, orthopnea, short of breath, sputum production, stridor, wheezing. Past History Travel History Traveled to [place] past 21 day No Medical History Neurological: Alzheimer's disease, dementia EENT: NONE Cardiovascular: hypertension, hyperlipidemia, RIGHT BUNDLE BRANCH BLOCK Respiratory: NONE Gastrointestinal: NONE Hepatic: NONE Renal: UTI Musculoskeletal: gout, osteoarthritis Psychiatric: depression, MDD Endocrine: diabetes Blood Disorders: anemia Surgical History Surgical History: non-contributory Psychosocial History Where Do You Live? Extended Care Facility Smoking Status: Unknown If Ever Smoked Functional Ability ADLs Independent: dressing, eating, toileting, bathing. Ambulation: independent Exam & Diagnostic Data Last 24 Hrs of Vital Signs/I&O Vital Signs Date Time Temp Pulse Resp B/P B/P Pulse O2 O2 Flow FiO2 Mean Ox Delivery Rate 05/19 0400 96 Room Air 05/18 2359 98 Room Air 05/18 2359 98.6 75 22 130/70 98 Room Air 05/18 2200 99.3 76 18 136/78 95 05/18 2140 95 Room Air 05/18 2139 98.9 79 20 167/94 96 Room Air 05/18 202 98.7 72 18 148/73 95 Room Air 05/18 1637 97 Room Air 05/18 1631 79 18 101/58 99 Room Air Intake & Output 05/19 1600 05/19 0800 05/19 0000 Intake Total 344 120 Output Total Balance 344 120 Intake, IV 224 Intake, Oral 120 120 Number 0 Bowel Movements Patient 136 lb Weight Weight Bed scale Measurement Method Physical Exam General Appearance: alert, awake, comfortable Head: normal appearance Respiratory: normal breath sounds Cardiovascular: regular rate/rhythm Extremities: no edema Last 48 Hrs of Labs/Paul: Laboratory Tests 05/19/17 0430: Anion Gap 9, Estimated GFR 53 L, Glucose 90, Calcium 9.0, Phosphorus 3.5, Magnesium 2.0, Total Bilirubin 0.2, AST 18, ALT 30, Albumin 3.2 L, CBC w Diff NO MAN DIFF REQ, RBC 3.15 L, MCV 88.3, MCH 30.0, MCHC 34.0, RDW 13.6, MPV 8.7, Gran % 70.7, Lymphocytes % 18.5 L, Monocytes % 8.4, Eosinophils % 1.8, Basophils % 0.6, Absolute Granulocytes 6.6 H, Absolute Lymphocytes 1.7, Absolute Monocytes 0.8 H, Absolute Eosinophils 0.2, Absolute Basophils 0.1 05/18/171958: Urinalysis LIGHT H, Urine Color YEL, Urine Clarity HAZY H, Urine pH 6.0, Ur Specific Eagle 1.025, Urine Protein TRACE H, Urine Ketones NEG, Urine Nitrite NEG, Urine Bilirubin NEG, Urine Urobilinogen 0.2, Ur Leukocyte Esterase MOD H, Ur Microscopic SEDIMENT EXAMINED, Urine WBC > 75 H, Ur Epithelial Cells RARE, Urine Bacteria RARE H, Urine Mucus FEW, Urine Hemoglobin NEG, Urine Glucose NEG 05/18/171954: Anion Gap 11, Estimated GFR 42 L, BUN/Creatinine Ratio 18.8, Glucose 108 H, Calcium 9.5, Total Bilirubin 0.3, AST 21, ALT 29, Alkaline Phosphatase 92, Troponin I < 0.01, Total Protein 6.3, Albumin 3.6, Globulin 2.7, Albumin/ Globulin Ratio 1.3, CBC w Diff NO MAN DIFF REQ, RBC 3.63 L, MCV 88.3, MCH 29.2, MCHC 33.0, RDW 13.5, MPV 8.4, Gran % 82.2 H, Lymphocytes % 11.5 L, Monocytes % 5.5, Eosinophils % 0.4, Basophils % 0.4, Absolute Granulocytes 10.9 H, Absolute Lymphocytes 1.5, Absolute Monocytes 0.7 H, Absolute Eosinophils 0.1, Absolute Basophils 0 Microbiology 05/18 1958 NASOPHARYN: Influenza Virus A & B Rapid Smear - COMP Assessment/Plan CRCU Impression/Plan: 81-year-old gentleman from [facility] with advanced Alzheimer's dementia, depression, HTN, T2DM, CKD stage 3, OA, gout, and admission for unwitnessed fall. Tmax 96.3 overnight, blood pressure 130/70, saturating 96% on room air Normal white count, slight drop in H&H likely attributable to hemodilution UA positive for leukocyte esterase CT head/cervical spine: soft tissue laceration of left frontal scalp, focal subarachnoid hemorrhage+, no parenchymal hemorrhage or SDH. Spine intact. Wrist Xray: acute fracture of distal radius and ulna not significantly displaced. EKG: sinus rhythm, RBBB, Qtc 462. Assessment and plan: Unwitnessed fall/Focal subarachnoid hemorrhage Unclear as to what the preceding events were. ddx :Vasovagal versus cardiogenic versus orthostatic neuro surgery consulted appreciate recommendations No need for surgical intervention at this time, repeat CT head this morning showed no apparent change in the area of involvement of the subarachnoid hemorrhage in the left frontal region. per neurosurgery(dr. Vincent alegre to restart ASA) Continue to hold NSAIDs and opioids Continue with neuro checks Fall precautions Continue to hold any sedating medications Continue 1:1 sitter for unsafe ambulation Passed swallow eval as morning, will advance his diet Advanced alzheimer's dementia Continue to hold Namenda and Donapezil for now while we monitor his mental status Start tomorrow Hypertension Blood pressure stable, metoprolol statin and amlodipine on hold Will obtain orthostatic vitals when able Left distal radius-ulna fracture Ortho consult placed Forehead laceration suture removal in 7-10 days Continue local dressing ELIAN on CKD stage 3 improving creatinine 1.3 bun 29 today DVT prophylaxis: Alps DNR/DNI Consult Acknowledgment - Thank you for your consult request. Michael CHASE,[facility] 05/19/17 1344: Assessment/Plan CRCU Other Findings/Comments: Agree with above Seen and examined independently SIGNIFICANT DATA CT of the head noted there is no significant change in the small subarachnoid hemorrhage in the left frontal region Wrist acute fracture in the distal radius and ulna noted not displaced and's Below lunate probable fracture or ligament damage. Other blood work reviewed Creatinine is improved to 1.3 White count is 9.3 hemoglobin 9.5 IMPRESSION This is a 81-year-old gentleman with significant dementia, who resides in a nursing facility came into the emergency room after an unwitnessed fall with a laceration to the left forehead. Subsequently it was noted that he has a small subarachnoid bleed in the trauma related area. And this appears to be small. Neurosurgery is already aware and the no neurosurgical intervention is planned as patient is stable. His dementia appears to be stable He does have significant fracture in his wrist with distal radius and all are fracture which is not displaced and he does have a splint He has diabetes which is being monitored and followed Laceration status post suture Leukocytosis appears to be reactive Acute kidney injury and chronic kidney disease which is slowly improving after IV hydration. RECOMMENDATION Neurosurgery to follow Orthopedic to follow Gentle hydration for another liter Resume his medications for his dementia Continue his lipid lowering and hypertension medications Have psychiatry see him Patient might need a net bed Avoid benzos unless it's absolutely necessary Stool softener if he does not have any bowel movement in the future Patient has been on trazodone he could try a dose of trazodone tonight at 25 mg twice a day. Patient is DNR/DNI. Patient is stable to go to the floor. Consult Acknowledgment - Thank you for your consult request.
--- NOTE | 2017-05-19 11:04 | CT SCAN REPORT ---
EXAMINATION: CT HEAD WITHOUT CONTRAST CLINICAL INFORMATION: Subarachnoid hemorrhage last evening reevaluation for worsening bleed. COMPARISON: CT scan of the head dated 05/18/2017. TECHNIQUE: Contiguous axial imaging was performed from the skull base to vertex without intravenous administration of contrast. DLP: 826.23 mGy-cm FINDINGS: There is substantial motion artifact which limits evaluation. There is limited diagnostic information in the inferior aspect of the study or at the calvarial convexity. Again noted is the focal area of hyperattenuation involving the inferior frontal gyrus, the hyperattenuation extent is similar to the previous study. There is severe prominence of the bilateral ventricles, sulci and sylvian fissures consistent with substantial cortical volume loss. No extra-axial fluid collections are noted. The stanley-white junctions of the visualized portions of the brain parenchyma are maintained. No fluid fluid levels are present within the lateral ventricles. The left frontal scalp laceration and small subgaleal hematoma are not as well visualized on the current study compared to the prior study, again due to substantial motion artifact. IMPRESSION: Prominent motion artifact severely limits the sensitivity of the study. After accounting for the motion artifact, there is no apparent change in the area of involvement of the subarachnoid hemorrhage in the left frontal region.
--- NOTE | 2017-05-19 11:42 | PN- Neurosurgical ---
Subjective Subjective: Pt in bed, no complaints. Does not remember falling but according to medical records and his family in the room, this is his baseline. Denies AWAN,CP, Abd pain. Denies any paresthesias. Not nauseous Objective Vital Signs and I&Os Vital Signs Date Time Temp Pulse Resp B/P B/P Pulse O2 O2 Flow FiO2 Mean Ox Delivery Rate 05/19 0800 Room Air 05/19 0400 96 Room Air 05/18 2359 98 Room Air 05/18 2359 98.6 75 22 130/70 98 Room Air 05/18 2200 99.3 76 18 136/78 95 03/ 2140 95 Room Air / 2139 98.9 79 20 167/94 96 Room Air 05/18 2027 98.7 72 18 148/73 95 Room Air 05/18 1637 97 Room Air 05/18 1631 79 18 101/58 99 Room Air Intake & Output 05/19 1600 05/19 0800 / 0000 / 1600 05/18 0800 05/18 0000 Intake Total 344 120 Output Total Balance 344 120 Intake, IV 224 Intake, Oral 120 120 Number 0 Bowel Movements Patient 136 lb Weight Weight Bed scale Measurement Method Physical Exam: gen-NAD HEENT- EOMI, MMM, laceration on left side of forehead with sutures in place, tender to touch, dressing changed resp-clear cardio-RRR abd- ND, +BS, NT ext- distal sensory and motor funt intact in all extremities. Left wrist in splint, good cap refill Assessment/Plan Assessment/Plan 81-year-old male with a very small focal subarachnoid hemorrhage as result of an unwitnessed fall at his nursing facility where he resides. Now stable CT this morning showed no significant change Per Dr. Kaur, pt is stable and can discharged back to his nursing facility when medically cleared OK to restart ASA Neurosurgery signing off as pt is stable and there is no bneed for neurosurgical intervention at this time Core Measures Venous Thromboembolism VTE Risk Factors Trauma No Mechanical VTE Prophylaxis d/t N/A MechProphylax Ordered No VTE Pharm Prophylaxis d/t Bleeding (Active)
[2017-05-19 12:00] VITALS: BP 144/70
--- NOTE | 2017-05-19 15:55 | Cons- Psychiatry ---
See Addendum Psychiatric Consult Date of Consult: 05/19/17 Reason for Consult: "Dementia, hyperactivity." History of Present Illness: 81-year-old , male, currently living in long-term care, was brought in by ambulance from that facility, [facility], on 05/18/2017 at 1634, with a chief complaint of unwitnessed fall and bleeding wound to the left for head. Past medical history includes Alzheimer's disease, dementia, hyperlipidemia, iron deficiency anemia, gout, hypertension, major depressive disorder, type 2 diabetes, osteoarthritis, right bundle branch block. Current psychotropic medications at home include Ativan 0.5 mg by mouth daily at bedtime, Lexapro 20 mg by mouth daily in the morning, trazodone 12.5 mg by mouth 2 times per day, donepezil 10 mg by mouth at bedtime. EKG as of 05/18/2017 at 1956 shows sinus rhythm, 74 BPM, right bundle branch block, QTC 462 ms. Urinalysis on 05/18/2017 at 1959 shows light hazy and yellow urine with a trace of protein, moderate leukocyte esterase, WBCs greater than 75, rare epithelial cells, rare urine bacteria, few mucus. Chemistry as of 05/19/2017 at 0430 shows sodium, potassium, calcium, phosphorus and magnesium all within normal limits. BUN 29H/creatinine 1.3H, albumin 3.2L, otherwise, liver function tests are within normal limits. 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 There is no toxicology screen available at this time. Allergies: Coded Allergies: No Known Allergies (05/18/17) Current Medications: Current Medications Sig/Jyoti Start time Last Medication Dose Route Stop Time Status Admin Acetaminophen 1,000 MG Q12H 05/19 1600 DC IV 05/20 1601 Acetaminophen 1,000 MG Q6P PRN 05/19 1245 AC 05/19 IV 1244 Acetaminophen 1,000 MG BID 05/19 0339 DC 05/19 IV 05/20 1001 0424 Amlodipine Besylate 10 MG DAILY 05/20 1000 AC PO Aspirin 81 MG DAILY 05/20 1000 AC PO Atorvastatin Calcium 40 MG 1800 05/20 1800 AC PO Dextrose/Sodium 1,000 ML Q13H 05/19 0430 DC 05/19 Chloride IV 0437 Donepezil HCl 10 MG QPM 05/19 2200 AC PO Escitalopram Oxalate 20 MG DAILY 05/20 1000 AC PO Lidocaine 1 PAT DAILY 05/19 1000 AC EXT Lidocaine 20 ML ONCE ONE 05/18 1730 DC 05/18 ID 05/18 1731 1735 Lidocaine 0 .STK-MED ONE 05/18 1726 DC .ROUTE Memantine 28 MG DAILY 05/20 1000 CAN PO Memantine 10 MG BID 05/19 2200 AC PO Metoprolol Succinate 25 MG DAILY 05/19 1415 AC PO Sodium Chloride 1,000 ML .[id number] 05/19 1400 AC 05/19 IV 05/20 0319 1505 Past History Past Medical History Neurological: Alzheimer's disease, dementia EENT: NONE Cardiovascular: hypertension, hyperlipidemia, RIGHT BUNDLE BRANCH BLOCK Respiratory: NONE Gastrointestinal: NONE Hepatic: NONE Renal: UTI Musculoskeletal: gout, osteoarthritis Psychiatric: F32.9 major depressive disorder, unspecified Endocrine: diabetes Blood Disorders: anemia Past Surgical History Surgical History: non-contributory Psychosocial History Strengths/Capabilities: Currently calm Physical Limitations (Interventions): None at this time. Has a personal safety monitor with him, but is not in any restraints. Psychiatric Treatment History Psych Treatment Psychiatric Treatment Yes Inpatient Treatment No (unknown) Outpatient Treatment Yes Location of Treatment [facility], for medication management. Reason for Treatment Dementia, depression Dates of Treatment currently in treatment as an outpatient at [facility] Response to Treatment Unknown Diagnosis: G30.9 Alzheimer's disease F02.80 dementia F32.9 major depressive disorder, unspecified Risk Factors: age (under 24/over 65), chronic/serious med cond., poor impulse control, male Substance Use/Abuse History Drug Use/Abuse Substances Used/Abused No Substance Abuse Treatment Substance Abuse Treatment Past Substance Abuse [place] No Comments: Unable to assess due to dementia Assessment/Plan Mental Status Orientation: Confused Affect: Flat Speech: WNL Neuro-vegetative: unable to assess Mental Status Exam: The patient is lying calmly in bed, without mechanical restraints, and is pleasant, perseverating on saying "thanks for being nice to me." He is oriented to name only, but does not recall where he lives, the day date month or year. He denies auditory or visual hallucinations. He denies suicidal or homicidal ideation. He denies any feelings of anxiety or depression. He denies hopelessness, helplessness, worthlessness or guilt feelings. Asked why he is in the hospital, he states, "I went for a walk with my and my dog, Randall." The patient denies confusion. His memory is poor. Insight and judgment are poor. Lab Results: Laboratory Tests 05/19 Chemistry Sodium (137 - 145 mmol/L) 139 Potassium (3.5 - 5.1 mmol/L) 4.4 Chloride (98 - 107 mmol/L) 106 Carbon Dioxide (22 - 30 mmol/L) 25 Anion Gap (5 - 16) 9 BUN (9 - 20 mg/dL) 29 H Creatinine (0.7 - 1.2 mg/dL) 1.3 H Estimated GFR (>60 ml/min) 53 L Glucose (65 - 99 mg/dL) 90 Calcium (8.4 - 10.2 mg/dL) 9.0 Phosphorus (2.5 - 4.5 mg/dL) 3.5 Magnesium (1.6 - 2.3 mg/dL) 2.0 Total Bilirubin (0.2 - 1.3 mg/dL) 0.2 AST (17 - 59 U/L) 18 ALT (21 - 72 U/L) 30 Albumin (3.5 - 5.0 g/dL) 3.2 L Hematology CBC w Diff NO MAN DIFF REQ WBC (4.8 - 10.8 /CUMM) 9.3 RBC (4.70 - 6.10 /CUMM) 3.15 L Hgb (14.0 - 18.0 G/DL) 9.5 L Hct (42 - 52 %) 27.8 L MCV (80.0 - 94.0 FL) 88.3 MCH (27.0 - 31.0 PG) 30.0 MCHC (33.0 - 37.0 G/DL) 34.0 RDW (11.5 - 14.5 %) 13.6 Plt Count (130 - 400 /CUMM) 230 MPV (7.4 - 10.4 FL) 8.7 Gran % (42.2 - 75.2 %) 70.7 Lymphocytes % (20.5 - 51.1 %) 18.5 L Monocytes % (1.7 - 9.3 %) 8.4 Eosinophils % (0 - 5 %) 1.8 Basophils % (0.0 - 2.0 %) 0.6 Absolute Granulocytes (1.4 - 6.5 /CUMM) 6.6 H Absolute Lymphocytes (1.2 - 3.4 /CUMM) 1.7 Absolute Monocytes (0.10 - 0.60 /CUMM) 0.8 H Absolute Eosinophils (0.0 - 0.7 /CUMM) 0.2 Absolute Basophils (0.0 - 0.2 /CUMM) 0.1 Urines Urinalysis LIGHT H Urine Color (YEL,AMB,STR) YEL Urine Clarity (CLEAR) HAZY H Urine pH (5.0 - 8.0) 6.0 Ur Specific [place] (1.001 - 1.035) 1.025 Urine Protein (NEG,<30 MG/DL) TRACE H Urine Ketones (NEG) NEG Urine Nitrite (NEG) NEG Urine Bilirubin (NEG) NEG Urine Urobilinogen (0.1 - 1.0 EU/dl) 0.2 Ur Leukocyte Esterase (NEG) MOD H Ur Microscopic SEDIMENT EXAMINED Urine WBC (0 - 2 /HPF) > 75 H Ur Epithelial Cells (NONE,FEW) RARE Urine Bacteria (NEG/NONE) RARE H Urine Mucus (FEW,NONE) FEW Urine Hemoglobin (NEG) NEG Urine Glucose (N MG/DL) NEG 05/18 1954 Chemistry Sodium (137 - 145 mmol/L) 139 Potassium (3.5 - 5.1 mmol/L) 4.4 Chloride (98 - 107 mmol/L) 104 Carbon Dioxide (22 - 30 mmol/L) 24 Anion Gap (5 - 16) 11 BUN (9 - 20 mg/dL) 30 H Creatinine (0.7 - 1.2 mg/dL) 1.6 H Estimated GFR (>60 ml/min) 42 L BUN/Creatinine Ratio (7 - 25 %) 18.8 Glucose (65 - 99 mg/dL) 108 H Calcium (8.4 - 10.2 mg/dL) 9.5 Total Bilirubin (0.2 - 1.3 mg/dL) 0.3 AST (17 - 59 U/L) 21 ALT (21 - 72 U/L) 29 Alkaline Phosphatase (< 127 U/L) 92 Troponin I (<0.11 ng/ml) < 0.01 Total Protein (6.3 - 8.2 g/dL) 6.3 Albumin (3.5 - 5.0 g/dL) 3.6 Globulin (1.9 - 4.2 gm/dL) 2.7 Albumin/Globulin Ratio (1.1 - 2.2 %) 1.3 Hematology CBC w Diff NO MAN DIFF REQ WBC (4.8 - 10.8 /CUMM) 13.3 H RBC (4.70 - 6.10 /CUMM) 3.63 L Hgb (14.0 - 18.0 G/DL) 10.6 L Hct (42 - 52 %) 32.1 L MCV (80.0 - 94.0 FL) 88.3 MCH (27.0 - 31.0 PG) 29.2 MCHC (33.0 - 37.0 G/DL) 33.0 RDW (11.5 - 14.5 %) 13.5 Plt Count (130 - 400 /CUMM) 281 MPV (7.4 - 10.4 FL) 8.4 Gran % (42.2 - 75.2 %) 82.2 H Lymphocytes % (20.5 - 51.1 %) 11.5 L Monocytes % (1.7 - 9.3 %) 5.5 Eosinophils % (0 - 5 %) 0.4 Basophils % (0.0 - 2.0 %) 0.4 Absolute Granulocytes (1.4 - 6.5 /CUMM) 10.9 H Absolute Lymphocytes (1.2 - 3.4 /CUMM) 1.5 Absolute Monocytes (0.10 - 0.60 /CUMM) 0.7 H Absolute Eosinophils (0.0 - 0.7 /CUMM) 0.1 Absolute Basophils (0.0 - 0.2 /CUMM) 0 Diffential Diagnosis: Alzheimer's dementia versus change in mental status due to recent head strike Impression: Nursing reports that the family has stated that the patient is at his baseline, however, they believe that he is more restless than usual. We would avoid benzodiazepines as they can cause or worsen delirium in the elderly, as well as anticholinergic agents. Also, delirium triggers should be avoided, including nursing interventions during the hours of sleep. We also understand that the patient is restless at the [facility], and paces most of the time. This behavior poses an increased risk for fall. The patient is presenting here with a head injury, likely due to an unwitnessed fall. We do not recommend any psychotropic intervention at this time, due to his recent subarachnoid bleed, and our inability to follow along with him if he transfers back to the ECF within the next day or two. Some medications, such as quetiapine, include a risk for stroke or TIA, in addition to adding to sedation risk. The patient's EKG shows the QTC interval to be less than our suggested cut off for holding such a medication, which is 475 ms. His electrolytes, in particular potassium and magnesium, are within normal range, although we prefer these to be in the upper portion of that range. If dangerous or severe agitation, you might consider quetiapine 12.5 mg by mouth daily up to 3 times per day, as needed, for agitation; hold for oversedation or respiratory depression. This medication would require monitoring of the EKG and electrolytes, as above. Another medication that may be helpful in leveling the patient's mood swings, maybe Depakote, and if this is started, surveillance labs will be necessary until the patient is at a stable dose. Initial dosing might consist of Depakote sprinkles, 125 mg by mouth 3 times per day for agitation. Caution if risk for bleeding. We urge caution in starting any new medications until you are sure the patient is stable after his recent fall and brain bleed. Provisional Treatment Plan: 1. Please stop Ativan, and avoid benzodiazepines here, or at the F, due to their increased risk of causing or worsening delirium, and also there considerable risk for causing falls. 2. If trazodone 12.5 mg, is given during the day, the patient should have constant supervision, as this can make the patient sedated or sleepy, and at risk for falls. This can be given at bedtime, as needed, for insomnia. If tolerated, it can be increased to 25 mg before bedtime, as needed, for insomnia. 3. Please request a psychiatry consult at the receiving facility. 4. You may restart Lexapro 20 mg PO every AM at that dosing level, if he has not missed more than two doses. 5. Consider quetiapine for agitation. Psychiatry is signing off. Thank you for this consult.
[2017-05-19 21:51] VITALS: BP 119/84
[2017-05-20 06:54] VITALS: BP 170/90
--- NOTE | 2017-05-20 08:45 | PN- Housestaff ---
Kya CHASE,[facility] 05/20/17 0844: Subjective Follow-up For: SAH Complaints: pt unable to provide hx Subjective: Patient was seen and examined at bedside. He has baseline dementia and disoriented at baseline. He is awake, alert and currently denies any pain or headache. Review of Systems Constitutional: Reports: no symptoms. Objective Last 24 Hrs of Vital Signs/I&O Vital Signs Date Time Temp Pulse Resp B/P B/P Pulse O2 O2 Flow FiO2 Mean Ox Delivery Rate 05/20 1019 170/90 05/20 1019 170/90 05/20 0654 97.6 80 20 170/90 98 Room Air 05/19 2151 98.6 88 18 119/84 97 05/19 1200 98.8 85 25 144/70 97 Room Air 05/19 1153 Room Air Intake & Output 05/20 1600 05/20 0800 05/20 0000 Intake Total 600 225 Output Total Balance 600 225 Intake, IV 600 225 Patient 146 lb Weight Weight Bed scale Measurement Method Physical Exam General Appearance: Alert, Cooperative, No Acute Distress, oriented x0 Skin: No Rashes, No Breakdown Skin Temp/Moisture Exam: Warm/Dry Sepsis Skin Exam (color): Normal for Ethnicity HEENT: small laceration of forehead Cardiovascular: Normal S1, Normal S2, No Murmurs Lungs: Clear to Auscultation, Normal Air Movement Abdomen: Soft, No Tenderness Neurological: Normal Speech Extremities: No Edema Assessment/Plan Assessment: 81-year-old gentleman with PMH of dementia, Alzheimer's disease, type II DM was brought in from [facility] after the patient was found to have an unwitnessed fall. Assessment and plan: Unwitnessed fall/Focal subarachnoid hemorrhage * Precipitating cause for fall unclear. Was likely a mechanical fall. * He has been evaluated by Neurosurgery. His repeat CT scan did not show any significant change of his SAH. He is clear from a neurosurgical standpoint. * Fall precautions * Per psych, can start him on low dose of trazodone 12.5mg if needed. * Hallway monitor sufficient at this time. * Passed swallow eval yesterday. He can continue regular diet. Left distal radius-ulna fracture * Ortho consult * Continue splint for now. Forehead laceration * suture removal in 7-10 days * Continue local dressing * IV tylenol for pain. * Can use NSAIDS as his kidney function is back to normal. Advanced alzheimer's dementia * Continue Memantine and Donepezil History of Hypertension: * Continue Amlodipine, Metoprolol ELIAN: - resolved * Cr down to 0.9. DVT prophylaxis: Alps DNR/DNI Problem List: 1. Head trauma Pain Ratin Pain Location: none Pain Goal: Remain pain free Pain Plan: none Tomorrow's Labs & Rationales: CBC Victorino Garcia 05/20/17 1128: Attending MD Review Statement Attending Statement Attending MD Statement: examined this patient, discuss w/resident/PA/APPLICATION CONSULTANT, agreed w/resident/PA/APPLICATION CONSULTANT, discussed with family, reviewed EMR data (avail), discussed with nursing, discussed with case mgmt, reviewed images, amended to note Attending Assessment/Plan: 81-year-old gentleman with significant dementia, who resides in a nursing facility came into the emergency room after an unwitnessed fall with a laceration to the left forehead. SAH small with no neurosurgical intervention is planned as patient is stable. Provide supportive care for dementia, pyzehra appreciated. He does have significant fracture in his wrist with distal radius and all are fracture which is not displaced and he does have a splint. Laceration status post suture Leukocytosis appears to be reactive Acute kidney injury and chronic kidney disease which is improved. Follow orthopedics and PT evaluation and can be discharged to STR facility. fracture which is not displaced and he does have a splint. Laceration status post suture Leukocytosis appears to be reactive Acute kidney injury and chronic kidney disease which is improved. Follow orthopedics and PT evaluation and can be discharged to STR facility.
--- NOTE | 2017-05-20 08:55 | Patient Discharge Instructions ---
Discharge Instructions General Discharge Information You were seen/treated for: Subarachnoid Hemorrhage Wrist Fracture Special Instructions: Please follow up with your PCP within one week of discharge. Follow up with Dr. Winn (orthopedic doctor) in 2 weeks for repeat imaging of left wrist fracture Have your sutures removed in one week. Diet Continue normal diet: Yes Activity Full Activity/No Limits: No Activity Self Limited: Yes Acute Coronary Syndrome Inclusion Criteria At DC or during hospital stay patient has or had the following: ACS DIAGNOSIS No Discharge Core Measures Meds if any: Prescribed or Continued at Discharge Meds if any: NOT Prescribed or Continued at Discharge Congestive Heart Failure Inclusion Criteria At DC or during hospital stay patient has or had the following: CHF DIAGNOSIS No Discharge Core Measures Meds if any: Prescribed or Continued at Discharge Meds if any: NOT Prescribed or Continued at Discharge Cerebrovascular accident Inclusion Criteria At DC or during hospital stay patient has or had the following: CVA/TIA Diagnosis No Discharge Core Measures Meds if any: Prescribed or Continued at Discharge Meds if any: NOT Prescribed or Continued at Discharge Venous thromboembolism Inclusion Criteria VTE Diagnosis No VTE Type NONE VTE Confirmed by (Test) NONE Discharge Core Measures - Per Current guidelines, there needs to be overlap - treatment for the first 5 days of Warfarin therapy. - If discharged on Warfarin prior to 5 days of - overlap therapy, the patient will need to be - assessed for post discharge needs including - *Post discharge parental anticoagulation - *Warfarin and/or parental anticoagulation education - *Follow up date to check INR post discharge At least 5 days overlap therapy as Inpatient No Meds if any: Prescribed or Continued at Discharge Note: Overlap Therapy is Warfarin and Anticoagulant Meds if any: NOT Prescribed or Continued at Discharge
[2017-05-20 14:32] VITALS: BP 136/78
[2017-05-20 22:16] VITALS: BP 132/84
[2017-05-21 07:05] VITALS: BP 116/60
--- NOTE | 2017-05-21 07:11 | PN- Housestaff ---
Kya CHASE,[facility] 05/21/17 0711: Subjective Follow-up For: SAH left wrist fracture ELIAN head laceration Complaints: pt unable to provide hx Subjective: Patient was seen and examined at bedside. He has disoriented at baseline. However, does not complain of any pain or headaches. Review of Systems Constitutional: Reports: no symptoms. Objective Last 24 Hrs of Vital Signs/I&O Vital Signs Date Time Temp Pulse Resp B/P B/P Pulse O2 O2 Flow FiO2 Mean Ox Delivery Rate 05/21 1432 97.8 77 20 118/61 97 Room Air 05/21 1123 Room Air 05/21 1116 Room Air 05/21 1032 88 108/58 05/21 1031 88 108/58 05/21 0705 98.3 76 18 116/60 98 Room Air 05/20 2216 98.6 76 20 132/84 98 Room Air Intake & Output 05/21 1600 05/21 0800 05/21 0000 Intake Total 240 Output Total Balance 240 Intake, Oral 240 Number 0 Bowel Movements Physical Exam General Appearance: Alert, Cooperative, No Acute Distress, oriented x0 Skin: laceration of forehead Skin Temp/Moisture Exam: Warm/Dry Sepsis Skin Exam (color): Normal for Ethnicity HEENT: Atraumatic Cardiovascular: Normal S1, Normal S2, No Murmurs Lungs: Clear to Auscultation, Normal Air Movement Abdomen: Soft, No Tenderness Neurological: Normal Speech Extremities: No Edema Assessment/Plan Assessment: 81-year-old gentleman with PMH of dementia, Alzheimer's disease, type II DM was brought in from [facility] after the patient was found to have an unwitnessed fall. Assessment and plan: Unwitnessed fall/Focal subarachnoid hemorrhage * Precipitating cause for fall unclear. Was likely a mechanical fall. * He has been evaluated by Neurosurgery. His repeat CT scan did not show any significant change of his SAH. He is clear from a neurosurgical standpoint. * Fall precautions * Per psych, can start him on low dose of trazodone 12.5mg if needed. * Hallway monitor sufficient at this time. * Passed swallow eval. He can continue regular diet. * Stable to be discharged back to [facility]. Left distal radius-ulna fracture * Ortho consult * Recommneds conservative treatment and repeat scan in 2 weeks to assess the fracture. * Continue splint. Forehead laceration * suture removal in 7-10 days * Continue local dressing * Tylenol for pain if needed. * Can use NSAIDS as his kidney function is back to normal. Advanced alzheimer's dementia * Continue Memantine and Donepezil History of Hypertension: * Continue Amlodipine, Metoprolol ELIAN: - resolved * Cr normal. DVT prophylaxis: Alps DNR/DNI Problem List: 1. Subarachnoid bleed Pain Ratin Pain Location: none Pain Goal: Remain pain free Pain Plan: none Tomorrow's Labs & Rationales: none Jose,Victorino 05/21/17 1132: Attending MD Review Statement Attending Statement Attending MD Statement: examined this patient, discuss w/resident/PA/API DEVELOPER, agreed w/resident/PA/API DEVELOPER, discussed with family, reviewed EMR data (avail), discussed with nursing, discussed with case mgmt, reviewed images, amended to note Attending Assessment/Plan: 81-year-old gentleman with significant dementia, who resides in a nursing facility came into the emergency room after an unwitnessed fall with a laceration to the left forehead. SAH small with no neurosurgical intervention is planned as patient is stable. Provide supportive care for dementia, pyzehra appreciated. He does have significant fracture in his wrist with distal radius and all are fracture which is not displaced and he does have a splint. Laceration status post suture Leukocytosis appears to be reactive Acute kidney injury and chronic kidney disease which is improved. Follow orthopedics and PT evaluation and can be discharged to STR facility.
[2017-05-21 08:08] LABS: ABSOLUTE BASOPHIL COUNT 0 /CUMM (0.0-0.2); ABSOLUTE EOSINOPHIL COUNT 0.3 /CUMM (0.0-0.7); ABSOLUTE GRANULOCYTE CT 6.7 /CUMM (1.4-6.5); ABSOLUTE LYMPH COUNT 1.8 /CUMM (1.2-3.4); ABSOLUTE MONOCYTE COUNT 0.9 /CUMM (0.10-0.60); BASOPHIL % 0.5 % (0.0-2.0); GRANULOCYTE % 68.9 % (42.2-75.2); HEMATOCRIT 25.5 % (42-52); MEAN CORPUSCULAR HGB 29.8 PG (27.0-31.0); MEAN CORPUSCULAR HGB CONC 33.8 G/DL (33.0-37.0); MEAN CORPUSCULAR VOLUME 88.3 FL (80.0-94.0); MEAN PLATELET VOLUME 8.3 FL (7.4-10.4); PLATELET COUNT 251 /CUMM (130-400); RED BLOOD CELL CT 2.89 /CUMM (4.70-6.10); WHITE BLOOD CELL COUNT 9.7 /CUMM (4.8-10.8)
--- NOTE | 2017-05-21 08:29 | Cons- Orthopedic ---
General Information and HPI Consulting Request Date of Consult: 05/21/17 Requested By: Victorino Garcia MD Reason for Consult: Left wrist fracture Source of Information: patient, old records Exam Limitations: confusion History of Present Illness: Patient presented to Emergency Department after an unwitnessed fall at a nursing facility on 05/18/2017. He was noted to have a laceration on the left side of his forehead and pain in his left wrist. CT scan obtained of head which was positive for intracranial hemorrhage, neurosurgery consulted. Radiographs of his left wrist were positive for non-displaced fractures of distal radius and ulna. Wrist was splinted in ER. Orthopedic surgery is being consulted regarding management of wrist fractures. Allergies/Medications Allergies: Coded Allergies: No Known Allergies (05/18/17) Home Med List: Alprazolam (Xanax) 0.25 MG TABLET 1 TAB PO QPM UNKNOWN (Reported) Amlodipine Besylate 10 MG TABLET 1 TAB PO DAILY HEART (Reported) Aspirin (Aspirin*) 81 MG TAB.CHEW 1 TAB PO DAILY HEART HEALTH (Reported) Diphenoxylate HCl/Atropine (Lomotil 2.5-0.025 MG Tablet) 2.5 MG-0.025 MG TABLET 1 TAB PO BID DIARRHEA (Reported) Donepezil HCl (Aricept) 10 MG TABLET 1 TAB PO QPM mental health (Reported) Escitalopram Oxalate (Lexapro) 20 MG TABLET 1 TAB PO DAILY MENTAL HEALTH ( Reported) Lactobacillus Acidophilus (Acidophilus) 1 EACH CAPSULE 1 CAP PO DAILY GI ( Reported) Lovastatin 40 MG TABLET 1 TAB PO 1800 CHOLESTEROL (Reported) with food Memantine HCl (Namenda XR) 28 MG CAP.SPR.24 1 CAP PO DAILY dementia (Reported ) Metoprolol Succ XL (Toprol XL) 25 MG TAB 1 TAB PO DAILY HEART (Reported) Multivitamin (One Daily Multivitamin) 1 EACH TABLET 1 TAB PO DAILY heart health (Reported) Psyllium Husk/Aspartame (Iris-Mucil Powder) 3.4 GRAM/5.8 GRAM POWDER 1 TSP PO DAILY GI (Reported) Trazodone HCl 50 MG TABLET 0.25 TAB PO BID MENTAL HEALTH (Reported) Past History Medical History Neurological: Alzheimer's disease, dementia EENT: NONE Cardiovascular: hypertension, hyperlipidemia, RIGHT BUNDLE BRANCH BLOCK Respiratory: NONE Gastrointestinal: NONE Hepatic: NONE Renal: UTI Musculoskeletal: gout, osteoarthritis Psychiatric: F32.9 major depressive disorder, unspecified Endocrine: diabetes Blood Disorders: anemia Surgical History Pertinent Surgical History: non-contributory Psychosocial History Where Do You Live? Extended Care Facility Smoking Status: Unknown If Ever Smoked Functional Ability ADLs Independent: dressing, eating, toileting, bathing. Ambulation: independent Review of Systems Review of Systems: See H&P No new complaints at the present time. Pleasently confused, unable to ascertain accurate subjective assessment. Exam & Diagnostic Data Vital Signs and I&O Vital Signs Date Time Temp Pulse Resp B/P B/P Pulse O2 O2 Flow FiO2 Mean Ox Delivery Rate 05/21 704 98.3 76 18 116/60 98 Room Air 05/20 2216 98.6 76 20 132/84 98 Room Air 05/20 1432 98.2 97 16 136/78 97 Room Air 05/20 1019 170/90 05/20 1019 170/90 Intake & Output 05/21 1600 05/21 0800 05/21 0000 05/20 1600 05/20 0800 05/20 0000 Intake Total 240 1350 600 225 Output Total Balance 240 1350 600 225 Intake, IV 600 225 Intake, Oral 240 1350 Number 0 2 Bowel Movements Patient 146 lb Weight Weight Bed scale Measurement Method Physical Exam: General: Pleasently confused, no distress Cardiac: RRR, s1s2 Pulm: C T A bialterally, non-labored respiratory effort HEENT: Laceration to left side of forehead dressed, dressing clean dry and intact ABD: nontender, non-distended Extremities: Moves all extremities,distal sensation grossly intact. Skin warm and well perfused. Bialteral calves soft and non-tender. Left wrist: Splinted. Neurovasucular status intact. Some expected swelling and brusing noted throughout hand and fingers. Able to move 5 fingers, clench fist. Compartments soft. Capillary refill brisk. Pulses palpable. Skin intact, warm, dry. Last 24 Hours of Labs: Laboratory Tests 05/21 706 Hematology CBC w Diff Pending WBC Pending RBC Pending Hgb Pending Hct Pending MCV Pending MCH Pending MCHC Pending RDW Pending Plt Count Pending MPV Pending Imaging Results: PATIENT: TERRANCE PANDEY PRESENT AGE: 81 PATIENT ACCOUNT NO: [id number] : 37 LOCATION: [facility] ORDERING PHYSICIAN: Trevon DEAN SERVICE DATE: 05/18/17 EXAM TYPE: RAD - XRY-WRIST COMPLETE-LEFT EXAMINATION: XR WRIST, LEFT CLINICAL INFORMATION: Left wrist pain after trauma COMPARISON: None TECHNIQUE: Left wrist, 2 views FINDINGS: There is a nondisplaced fracture involving the anterior cortex of the distal radial metaphysis. Also, there is an obliquely oriented fracture through the lateral cortex of the distal ulnar metaphysis resulting in 0.2 cm of cortical bone offset in this region. The radiocarpal and ulnocarpal joint spaces are maintained. The scapholunate distance is 0.4 cm wide. This suggests possibility of stretching or tearing of the scapholunate ligament. Is mild osteoarthritis of the first carpometacarpal joint. Soft tissues are swollen around the wrist. Peripheral vascular calcifications are seen. IMPRESSION: 1. Acute fractures of the distal radius and ulna are not significantly displaced. 2. Scapholunate distance is mildly widened; this suggests possibility of stretching or tearing of the scapholunate ligament. DICTATED BY: Jonnie Albright MD DATE/TIME DICTATED:05/18/171808 FRAME STRIPPER [employer] CRUSHER:DANIE DATE/TIME TRANSCRIBED:05/18/171808 CONFIDENTIAL, DO NOT COPY WITHOUT APPROPRIATE AUTHORIZATION. <Electronically signed in Other Vendor System> SIGNED BY: Jonnie Albright MD 05/18/171814 Other Results: PATIENT: TERRANCE PANDEY PRESENT AGE: 81 PATIENT ACCOUNT NO: [id number] : 37 LOCATION: [facility] ORDERING PHYSICIAN: Iván DEAN SERVICE DATE: 05/19/17 EXAM TYPE: CAT - CT HEAD WO IV CONTRAST EXAMINATION: CT HEAD WITHOUT CONTRAST CLINICAL INFORMATION: Subarachnoid hemorrhage last evening reevaluation for worsening bleed. COMPARISON: CT scan of the head dated 05/18/2017. TECHNIQUE: Contiguous axial imaging was performed from the skull base to vertex without intravenous administration of contrast. DLP: 826.23 mGy-cm FINDINGS: There is substantial motion artifact which limits evaluation. There is limited diagnostic information in the inferior aspect of the study or at the calvarial convexity. Again noted is the focal area of hyperattenuation involving the inferior frontal gyrus, the hyperattenuation extent is similar to the previous study. There is severe prominence of the bilateral ventricles, sulci and sylvian fissures consistent with substantial cortical volume loss. No extra-axial fluid collections are noted. The stanley-white junctions of the visualized portions of the brain parenchyma are maintained. No fluid fluid levels are present within the lateral ventricles. The left frontal scalp laceration and small subgaleal hematoma are not as well visualized on the current study compared to the prior study, again due to substantial motion artifact. IMPRESSION: Prominent motion artifact severely limits the sensitivity of the study. After accounting for the motion artifact, there is no apparent change in the area of involvement of the subarachnoid hemorrhage in the left frontal region. Assessment/Plan Assessment/Plan This is a 81 year old male with a baseline of alzheimers/dementia who presented to the ER after sustaining an intracranial bleed along with a left wrist fracture after an unwitnessed fall. Please refer to neurosurgical notes for plan of care related to intracranial bleed, this is an orthopedic consult regarding left wrist. Left wrist to remain splinted No need for surgical intervention at the present time Follow up with Dr. Winn in 2 weeks for repeat imaging of left wrist fracutre Okay to discharge from orthopedic standpoint. Consult Acknowledgment - Thank you for your consult request.
--- NOTE | 2017-05-21 13:26 | Discharge Summary ---
Visit Information Visit Dates Admission Date: 05/18/17 Discharge Date: 05/21/2017 Hospital Course Course Attending Physician: Victorino Garcia MD Primary Care Physician: Leonie Vaca MD Hospital Course: 81-year-old gentleman with PMH of Alzheimer's disease, hyperlipidemia, iron deficiency anemia, gout, hypertension, major depressive disorder, type 2 diabetes, osteoarthritis, right bundle branch block who was brought to the hospital from [facility]) after having an episode of unwitnessed fall with laceration to his head. Patient was seen and admitted for the following conditions: Subarachnoid hemorrhage: Patient presented after an unwitnessed fall with laceration to his forehead. Initial CT head in the ED showed a focal subarachnoid hemorrhage. An urgent neurosurgical consult was obtained. It was recommended the patient to be monitored closely with q2 neurochecks and a repeat CT scan of the head the next day. The patient while having dementia at baseline, did not complain of any headaches or pain anywhere in his body. His repeat CT showed no significant change. The patient was hence deemed suitable to return to his nursing facility as no neurosurgical intervention was warranted. The patient was discharged in stable disposition. He should be followed up with his PCP within one week of discharge. Left distal radius-ulna fracture His wrist xray showed acute fractures of the distal radius and ulna, not significantly displaced. Ortho was consulted. His left wrist was splinted and recommended to keep it in splint with no surgical intervention at the present time. He is to follow up with Dr. Winn in 2 weeks for repeat imaging of left wrist fracutre Forehead laceration On admission, patient was noted to have a left frontal scalp soft tissue laceration on his forehead. The laceration was sutured with clean dressings applied to the area. He is to have the sutures removed in 7-10 days ELIAN: On admission he was found to have elevated Creatinine of 1.6. He was treated with gentle hydration with normal saline. His Cr slowly returned down to 0.9 with fluid hydration. Advanced alzheimer's dementia Continued on Memantine and Donepezil History of Hypertension: Continued on Amlodipine, Metoprolol DVT prophylaxis: Maintained with ALPS Allergies: Coded Allergies: No Known Allergies (05/18/17) Significant Procedures: SERVICE DATE: 05/19/17-699 EXAM TYPE: CAT - CT HEAD WO IV CONTRAST FINDINGS: There is substantial motion artifact which limits evaluation. There is limited diagnostic information in the inferior aspect of the study or at the calvarial convexity. Again noted is the focal area of hyperattenuation involving the inferior frontal gyrus, the hyperattenuation extent is similar to the previous study. There is severe prominence of the bilateral ventricles, sulci and sylvian fissures consistent with substantial cortical volume loss. No extra-axial fluid collections are noted. The stanley-white junctions of the visualized portions of the brain parenchyma are maintained. No fluid fluid levels are present within the lateral ventricles. The left frontal scalp laceration and small subgaleal hematoma are not as well visualized on the current study compared to the prior study, again due to substantial motion artifact. IMPRESSION: Prominent motion artifact severely limits the sensitivity of the study. After accounting for the motion artifact, there is no apparent change in the area of involvement of the subarachnoid hemorrhage in the left frontal region. SERVICE DATE: 05/18/17 EXAM TYPE: RAD - XRY-WRIST COMPLETE-LEFT FINDINGS: There is a nondisplaced fracture involving the anterior cortex of the distal radial metaphysis. Also, there is an obliquely oriented fracture through the lateral cortex of the distal ulnar metaphysis resulting in 0.2 cm of cortical bone offset in this region. The radiocarpal and ulnocarpal joint spaces are maintained. The scapholunate distance is 0.4 cm wide. This suggests possibility of stretching or tearing of the scapholunate ligament. Is mild osteoarthritis of the first carpometacarpal joint. Soft tissues are swollen around the wrist. Peripheral vascular calcifications are seen. IMPRESSION: 1. Acute fractures of the distal radius and ulna are not significantly displaced. 2. Scapholunate distance is mildly widened; this suggests possibility of stretching or tearing of the scapholunate ligament. SERVICE DATE: 05/18/17 EXAM TYPE: CAT - CT CERV SPINE WO IV CONTRAST; CT HEAD WO IV CONTRAST FINDINGS: HEAD: Soft tissue laceration of the left frontal scalp. The underlying calvarium is intact. There is focal hyperdense subarachnoid hemorrhage overlying the anteroinferior aspect left inferior frontal gyrus (image 19, series 4). [id number] atrophy of cerebral hemispheres with commensurate prominence of ventricles, sulci and cisterns. Atherosclerotic calcification of cavernous carotid arteries. No acute findings within the posterior fossa. The stanley-white matter differentiation is maintained. No evidence of an acute major vascular territory infarction. The visualized paranasal sinuses, mastoid air cells and middle ear cavities are well aerated. Lenses have been extracted from each globe. No acute fracture or malalignment at either temporomandibular joint. CERVICAL SPINE: There is kyphotic curvature of the degenerated cervical spine. Multilevel facet osteoarthritis, most severe on the left at C2-C3 and C3-C4, and there is facet ankylosis at C4-C5. The degenerative disc disease is severe at C4-C5, C5-C6, C6-C7 and C7-T1. There is minimal degenerative anterolisthesis at C3-C4. No acute fracture, traumatic subluxation or prevertebral soft tissue swelling. No acute findings in visualized lung apices. Thyroid gland is unremarkable. No fluid collections within the neck. Atherosclerotic calcification of carotid bulbs and proximal ICAs. IMPRESSION: 1. Soft tissue laceration of the left frontal scalp. In this region, there is focal subarachnoid hemorrhage overlying the anteroinferior aspect of the left inferior frontal gyrus. No evidence of parenchymal hemorrhage, subdural hemorrhage, mass or midline shift. 2. No acute findings within the degenerated, kyphotic cervical spine. Disposition Summary Disposition Principal Diagnosis: SubArachnoid Hemorrhage Left Wrist Fracture Forehead Laceration ELIAN Unwitnessed Fall Additional Diagnosis: Alzheimer's Disease Dementia Type II DM Hypertension Hyperlipidemia Discharge Disposition: SNF Discharge Instructions General Discharge Information Code Status: Do Not Resucitate/Intubat Patient's Diet: Diabetic Patient's Activity: As tolerated Follow-Up Instructions/Appts: Please follow up with your PCP within one week of discharge. Follow up with Dr. Wnin (orthopedic doctor) in 2 weeks for repeat imaging of left wrist fracture Please have your sutures removed in one week. Medications at Discharge Discharge Medications: Stop taking the following medications: Alprazolam (Xanax) 0.25 MG TABLET ORAL Every night Continue taking these medications: Aspirin (Aspirin*) 81 MG TAB.CHEW 1 Tablet ORAL DAILY Comments: LAST GIVEN 05/21/17 @ 1030 Diphenoxylate HCl/Atropine (Lomotil 2.5-0.025 MG Tablet) 2.5 MG-0.025 MG TABLET 1 Tablet ORAL TWICE DAILY Comments: NOT GIVEN Escitalopram Oxalate (Lexapro) 20 MG TABLET 1 Tablet ORAL DAILY Comments: LAST GIVEN 05/21/17 @ 1030 Trazodone HCl (Trazodone HCl) 50 MG TABLET 0.25 Tablet ORAL As Directed Instructions: If trazodone 12.5 mg, is given during the day, the patient should have constant supervision, as this can make the patient sedated or sleepy, and at risk for falls. This can be given at bedtime, as needed, for insomnia. If tolerated, it can be increased to 25 mg before bedtime, as needed, for insomnia. Metoprolol Succ XL (Toprol XL) 25 MG TAB 1 Tablet ORAL DAILY Comments: LAST GIVEN 05/21/17 @ 1030 Lovastatin (Lovastatin) 40 MG TABLET 1 Tablet ORAL 1800 Instructions: with food Amlodipine Besylate (Amlodipine Besylate) 10 MG TABLET 1 Tablet ORAL DAILY Comments: LAST GIVEN 05/21/17 @ 1030 Psyllium Husk/Aspartame (Iris-Mucil Powder) 3.4 GRAM/5.8 GRAM POWDER 1 Teaspoonful ORAL DAILY Comments: NOT GIVEN Lactobacillus Acidophilus (Acidophilus) 1 EACH CAPSULE 1 Capsule ORAL DAILY Comments: NOT GIVEN Memantine HCl (Namenda XR) 28 MG CAP.SPR.24 1 Capsule ORAL DAILY Comments: LAST GIVEN 05/21/17 @ 1030 Multivitamin (One Daily Multivitamin) 1 EACH TABLET 1 Tablet ORAL DAILY Comments: NOT GIVEN Donepezil HCl (Aricept) 10 MG TABLET 1 Tablet ORAL Every night Comments: LAST GIVEN 05/21/17 @ 1030 Copies To: Lio CHASE,Leonie Story Attending MD Review Statement Documenting Attending: Jose CHASE,Victorino
[2017-05-21 14:32] VITALS: BP 118/61
[2017-05-21 17:03] VITALS: BP 118/61
== END 2017-05-21 17:35 | DRG 83 ==
LOC: ERH 16:24 → ERHI 18:52 → CRI 18:52 → 2NB 18:52 → ENRESERV 21:00 → ENTRNSPT 21:52 → CRI 22:06 → EDTRNSPT 22:11 → EDTRNSPTSTS 22:11 → EDTRNSPT 22:12 → CMPTRNSPT 22:13 → CRI 22:13 → ENTRNSPT 05-19 15:01 → EDTRNSPTSTS 05-19 15:10 → EDTRNSPT 05-19 15:10 → CMPTRNSPT 05-19 16:05 → 2NB 05-19 16:16
PROVIDERS: Internal Medicine; Internal Medicine Endocrinology, Diabetes & Metabolism; Physician Assistant
PROC: 2W3DX1Z Immobilization of Left Lower Arm using Splint (ICD-10-PCS; principal; 2017-05-18)
PROC: 0HQ0XZZ Repair Scalp Skin, External Approach (ICD-10-PCS; principal; 2017-05-18)
DX: S06.6X9A Traumatic subarachnoid hemorrhage with loss of consciousness of unspecified duration, initial encounter (principal); S52.502A Unspecified fracture of the lower end of left radius, initial encounter for closed fracture; N17.9 Acute kidney failure, unspecified; E11.22 Type 2 diabetes mellitus with diabetic chronic kidney disease; G30.9 Alzheimer's disease, unspecified; S01.81XA Laceration without foreign body of other part of head, initial encounter; F02.80 Dementia in other diseases classified elsewhere, unspecified severity, without behavioral disturbance, psychotic disturbance, mood disturbance, and anxiety; D50.9 Iron deficiency anemia, unspecified; D72.829 Elevated white blood cell count, unspecified; S52.602A Unspecified fracture of lower end of left ulna, initial encounter for closed fracture; G30.8 Other Alzheimer's disease; E78.5 Hyperlipidemia, unspecified; I12.9 Hypertensive chronic kidney disease with stage 1 through stage 4 chronic kidney disease, or unspecified chronic kidney disease; N18.3 Chronic kidney disease, stage 3 (moderate); M10.9 Gout, unspecified; F32.9 Major depressive disorder, single episode, unspecified; I45.10 Unspecified right bundle-branch block; M19.90 Unspecified osteoarthritis, unspecified site; W18.30XA Fall on same level, unspecified, initial encounter; Y93.9 Activity, unspecified; Y92.099 Unspecified place in other non-institutional residence as the place of occurrence of the external cause; Z79.82 Long term (current) use of aspirin; Z66 Do not resuscitate
CPT/HCPCS: 2NBP; 86618; CCU; 36592; 73110-LT; 81001; 82436; 87070; 87804; 87804-59; 93005; 93010; 97112-GO; 97161-GP; 97530-GO; 99291; J0131; J3490; J7042

== ENCOUNTER 2017-09-28 15:27 | Inpatient (IN) | payer OTHER ==
[~2017-09-28] VITALS: Ht 172.7 cm; Wt 66.3 kg
[~2017-09-28 15:27] MED LIST changes: +ARICEPT10 M1 PO; -ASPIRIN81 M4 PO; +NAMENDA XR28 M1 PO; +ONE DAILY MULT1 EAC2 PO
--- NOTE | 2017-09-28 15:32 | ED MVC/FALL/TRAUMA COMPLAINT ---
History of Present Illness General Chief Complaint: Fall Stated Complaint: MECHANICAL FALL LEFT HIP/LEG PAIN Source: old records Exam Limitations: dementia Vital Signs & Intake/Output Vital Signs & Intake/Output Vital Signs Date Time Temp Pulse Resp B/P B/P Pulse O2 O2 Flow FiO2 Mean Ox Delivery Rate 09/29 0640 98.1 72 20 140/76 98 Room Air 09/28 2345 68 09/28 2320 98.6 683 18 168/78 95 09/28 2102 98.5 67 18 151/85 98 Room Air Room Air 09/28 1844 68 18 152/78 98 Room Air 09/28 1750 97 Room Air 09/28 1554 98.3 61 18 135/63 99 Room Air Room Air ED Intake and Output 09/29 0000 09/28 1200 Intake Total 100 Output Total Balance 100 Intake, IV 100 Patient 146 lb Weight Weight Bed scale Measurement Method Allergies Coded Allergies: No Known Allergies (05/18/17) Triage Nurses Notes Reviewed? yes Onset: Abrupt Duration: constant Timing: single episode today Severity: severe Severity Numbers: 7 HPI: Patient is a 81-year-old male with a past medical history of dementia and which history is limited, hypertension hyperlipidemia depression anxiety and which old records also indicate that patient was recently admitted to [facility] for a fall 4 months ago which she had a subarachnoid hemorrhage and left distal radius fracture patient presents emergency room brought in by ambulance for concerns of a mechanical fall where he has a laceration to his left cheek region and pain to his left leg (Trevon Felix) Reconcile Medications Acetaminophen (Tylenol) 325 MG TABLET 2 TAB PO Q4 HRS NEEDED PRN FEVER > 101 (Reported) OR GENERAL DISCOMFORT Amlodipine Besylate 10 MG TABLET 0.5 TAB PO DAILY HEART (Reported) Bisacodyl (Dulcolax) 10 MG SUPP.RECT 1 SUP RC DAILY NEEDED CONSTIPATION ( Reported) USE IF MOM INEFFECTIVE Diphenoxylate HCl/Atropine (Lomotil 2.5-0.025 MG Tablet) 2.5 MG-0.025 MG TABLET 1 TAB PO DAILY NEEDED DIARRHEA (Reported) Donepezil HCl (Aricept) 10 MG TABLET 1 TAB PO QPM mental health (Reported) Escitalopram Oxalate (Lexapro) 20 MG TABLET 1 TAB PO DAILY MENTAL HEALTH ( Reported) Ferrous Sulfate 325 MG (65 MG IRON) TABLET 1 TAB PO BID BLOOD HEALTH ( Reported) Lactobacillus Acidophilus (Acidophilus) 1 EACH CAPSULE 1 CAP PO DAILY GI ( Reported) Lovastatin 40 MG TABLET 1 TAB PO 1800 CHOLESTEROL (Reported) with food Magnesium Hydroxide (Milk Of Magnesia) 400 MG/5 ML ORAL.SUSP 5 ML PO Q3DPRN CONSTIPATION (Reported) Memantine HCl (Namenda XR) 28 MG CAP.SPR.24 1 CAP PO DAILY dementia (Reported ) Metoprolol Succ XL (Toprol XL) 25 MG TAB 1 TAB PO DAILY HEART (Reported) Multivitamin (One Daily Multivitamin) 1 EACH TABLET 1 TAB PO DAILY heart health (Reported) Na Phos,M-B/Na Phos,Di-Ba (Fleet Enema) 19 GRAM-7 GRAM/118 ML ENEMA 1 E RC DAILY NEEDED CONSTIPATION (Reported) USE IF DULCOLAX INEFFECTIVE Psyllium Husk/Aspartame (Iris-Mucil Powder) 3.4 GRAM/5.8 GRAM POWDER 1 TSP PO DAILY GI (Reported) (Adam Chester DO) Past History Travel History Traveled to [place] past 21 day No Medical History Any Pertinent Medical History? see below for history Neurological: Alzheimer's disease, dementia EENT: NONE Cardiovascular: hypertension, hyperlipidemia, RIGHT BUNDLE BRANCH BLOCK Respiratory: NONE Gastrointestinal: NONE Hepatic: NONE Renal: UTI Musculoskeletal: gout, osteoarthritis Psychiatric: depression, MDD Endocrine: diabetes Blood Disorders: anemia History of MRSA: Yes History of VRE: No History of CDIFF: No Surgical History Surgical History: non-contributory Psychosocial History Who do you live with Other (see notes) What is your primary language Mongolian Family History Hx Contributory? No (Trevon Felix) Review of Systems Review of Systems Constitutional: Reports: no symptoms. Eyes: Reports: no symptoms. Ears, Nose, Throat, Mouth: Reports: no symptoms. Respiratory: Reports: no symptoms. Cardiovascular: Reports: no symptoms. Gastrointestinal/Abdominal: Reports: no symptoms. Genitourinary: Reports: no symptoms. Musculoskeletal: Reports: see HPI. Skin: Reports: see HPI. Neurological/Psychological: Reports: no symptoms. All Other Systems: Reviewed and Negative (Trevon Felix) Physical Exam Physical Exam General Appearance: no apparent distress, alert, thin Head: evidence of injury Eyes: Bilateral: normal appearance, PERRL, EOMI. Ears, Nose, Throat, Mouth: hearing grossly normal Neck: normal inspection, paraspinous muscle tender, stiff neck Respiratory: no respiratory distress Cardiovascular: regular rate/rhythm Gastrointestinal: normal bowel sounds, soft, non-tender Neurologic/Psych: awake Comments: Left hip generalized point tenderness noted patient unable to perform straight leg raise Left knee normal inspection nontender Left ankle normal inspection nontender Left lower extremity dermatomes intact pedal pulse +2 Right hip knee and ankle nontender, inspection normal range of motion Diagram Head: 1) 1.5 cm superficial non-gaping laceration with dried blood mild tenderness Core Measures ACS in differential dx? No CVA/TIA Diagnosis No Sepsis Present: No Sepsis Focused Exam Completed? No (Juan DEAN,Trevon) Progress Differential Diagnosis: abd injury, C/T/L spine injury, ext injury, ICH, pelvis injury, pnemothorax, spinal cord injury Plan of Care: Orders Procedure Date/time Status Nothing by Mouth 09/30 B Active Consistent Carbohydrate 2 09/29 B Active Change service to 09/29 0750 Active Change service to 09/29 0735 Active Wound Care/Dressing 09/29 06 Active Turn and Reposition 09/29 0612 Active Skin Integrity Protocol 09/29 0612 Active Skin/Pressure Ulcer Assess (Sk 09/29 0612 Active Lab Add-on Test 09/29 0610 Active HEPATIC FUNCTION PANEL 09/29 0600 Active HEPATITIS PANEL 09/29 0600 Active CBC WITHOUT DIFFERENTIAL 09/29 0600 Active BASIC ELECTROLYTES PLUS BUN&CR 09/29 0600 Active Pathway - chart 09/29 0208 Active House Staff 09/29 0208 Active Code Status 09/29 0208 Active FingerStick- Glucose 09/29 0003 Active Activity/Ambulation 09/29 UNK Complete Weight 09/28 2320 Complete Vital Signs 09/28 2320 Active Teach/Educate 09/28 2320 Active Pain Treatment and Response 09/28 2320 Active Nutritional Intake, Monitor 09/28 2320 Active Isolation 09/28 2320 Active Intake & Output 09/28 2320 Active Patient Care Conference 09/28 2320 Active Activity/Ambulation 09/28 2320 Active ED Holding Orders 09/28 1853 Active Admit to inpatient 09/28 1853 Active Code Status 09/28 1853 Complete Patient Data 09/28 1848 Active Intake & Output 09/28 1704 Active EKG 09/28 1616 Active PARTIAL THROMBOPLASTIN TIME 09/28 1542 Complete PROTHROMBIN TIME 09/28 1542 Complete COMPREHENSIVE METABOLIC PANEL 09/28 1542 Complete CBC WITHOUT DIFFERENTIAL 09/28 1542 Complete TYPE & SCREEN (NOT X-MATCH) 09/28 1542 Complete Current Medications Sig/Jyoti Start time Last Medication Dose Stop Time Status Admin Dextrose/Sodium 1,000 ML Q13H 09/30 0000 AC Chloride (D5W-1/2 Normal Saline 1000ML) Insulin Human Regular 0 Q6 09/29 2359 AC (NovoLIN R) Donepezil HCl 10 MG QPM 09/29 2100 AC (Aricept) Atorvastatin Calcium 10 MG 1700 09/29 1700 AC (Lipitor) Amlodipine Besylate 5 MG DAILY 09/29 0900 AC (Norvasc) Escitalopram Oxalate 20 MG DAILY 09/29 09 AC (Lexapro) Ferrous Sulfate 325 MG BID 09/29 09 AC (Feosol) Memantine 10 MG BID 09/29 09 AC (Namenda) Metoprolol Succinate 25 MG DAILY 09/29 09 AC (Toprol XL) Multivitamins 1 TAB DAILY 09/29 09 AC Therapeutic (Theragran-M Vitamins Tabs) Insulin Aspart 0 TIDAC 09/29 0800 AC (NovoLOG) 09/29 2355 Heparin Sodium 5,000 UNIT Q8 09/29 0600 AC 09/29 (Porcine) 0617 Magnesium Hydroxide 30 ML DAILY NEEDED PRN 09/29 0230 AC (Milk Of Magnesia) Sodium Phosphate 1 UNIT DAILY NEEDED PRN 09/29 0230 AC Bisacodyl 10 MG DAILY NEEDED PRN 09/29 0215 AC (Dulcolax Supp) Acetaminophen 650 MG Q6-PRN PRN 09/29 0015 AC (Tylenol) Laboratory Tests 09/29/17 0915: Sodium Pending, Potassium Pending, Chloride Pending, Carbon Dioxide Pending, Anion Gap Pending, BUN Pending, Creatinine Pending, BUN/Creatinine Ratio Pending , Total Bilirubin Pending, Direct Bilirubin Pending, AST Pending, ALT Pending, Alkaline Phosphatase Pending, Total Protein Pending, Albumin Pending, CBC w Diff Pending, WBC Pending, RBC Pending, Hgb Pending, Hct Pending, MCV Pending, MCH Pending, MCHC Pending, RDW Pending, Plt Count Pending, MPV Pending, Hepatitis A IgM Ab Pending, Hep Bs Antigen Pending, Hep B Core IgM Ab Conf Pending, Hepatitis C Antibody Pending 09/29/17 0610: Total Bilirubin Cancelled, Direct Bilirubin Cancelled, AST Cancelled, ALT Cancelled, Alkaline Phosphatase Cancelled, Total Protein Cancelled, Albumin Cancelled, Hepatitis A IgM Ab Cancelled, Hep Bs Antigen Cancelled, Hep B Core IgM Ab Conf Cancelled, Hepatitis C Antibody Cancelled 09/28/17 1554: Anion Gap 12, Estimated GFR 39 L, BUN/Creatinine Ratio 24.7, Glucose 140 H, Calcium 9.1, Total Bilirubin 0.3, AST 22, ALT 24, Alkaline Phosphatase 78, Total Protein 6.2 L, Albumin 3.5, Globulin 2.7, Albumin/Globulin Ratio 1.3, PT 10.9, INR 1.00, APTT 24 L, CBC w Diff NO MAN DIFF REQ, RBC 3.85 L, MCV 84.2, MCH 28.3, MCHC 33.6, RDW 15.5 H, MPV 8.6, Gran % 66.8, Lymphocytes % 19.9 L, Monocytes % 9.1, Eosinophils % 3.4, Basophils % 0.8, Absolute Granulocytes 4.4, Absolute Lymphocytes 1.3, Absolute Monocytes 0.6, Absolute Eosinophils 0.2, Absolute Basophils 0.1 Patient will be imaged from where he has point tenderness on exam CT scan shows concerns of left intertrochanteric fracture, The left facial laceration was irrigated with sterile water and Betadine Using benzoin and Steri-Strips were applied margins were revised Patient had unremarkable head neck and chest CT scans for acute process however patient does note to have left femoral neck fracture of CT scan and x-rays pending. 1730 hospitalist was marcio, orthopedics and surgical PA was marcio 180 hospitalist was marcio Discussed patient to Dr. Gasca who was aware of patient's admission for concerns of a left femoral fracture I discussed the x-ray findings with patient and was aware of the left femoral fracture Diagnostic Imaging: Viewed by Me: Radiology Read, CT Scan. Radiology Impression: acute abnormality Comments: PATIENT: TERRANCE PANDEY PRESENT AGE: 81 PATIENT ACCOUNT NO: [id number] : 37 LOCATION: [facility] ORDERING PHYSICIAN: Trevon DEAN SERVICE DATE: 09/28/17 EXAM TYPE: RAD - XRY-HIP 2-3 VIEWS, LEFT EXAMINATION: XR HIP, LEFT CLINICAL INFORMATION: Left hip pain. COMPARISON: None TECHNIQUE: AP and crosstable lateral views of the left hip. FINDINGS: There is a subcapital left femoral neck fracture with mild varus angulation. The femoral head is seated within a well-formed acetabulum. In addition, there is a lucency traversing the region of the triradiate cartilage which could correspond to a pelvic fracture. IMPRESSION: Left femoral neck fracture. Suspicion for nondisplaced left pelvic fracture. DICTATED BY: Maksim Frye MD DATE/TIME DICTATED:09/28/171755 EDUCATIONAL INSTITUTION PRESIDENT:DANIE DATE/TIME TRANSCRIBED:09/28/171755 PATIENT: TERRANCE PANDEY PRESENT AGE: 81 PATIENT ACCOUNT NO: [id number] : 37 LOCATION: [facility] ORDERING PHYSICIAN: Trevon DEAN SERVICE DATE: 09/28/17 EXAM TYPE: CAT - CT ABD & PELVIS W/O IV CONTRAS; CT CHEST WO IV CONTRAST EXAMINATION: CT CHEST, ABDOMEN AND PELVIS WITHOUT CONTRAST. CLINICAL INFORMATION: Fall. Dementia. Facial trauma. Left pelvic and hip pain. COMPARISON: None.. TECHNIQUE: Multidetector volumetric imaging was performed from the thoracic inlet through the pubic symphysis without contrast. Multiplanar reformats were rendered and reviewed. Total exam dose-length product 459 mGy-cm FINDINGS: CHEST: LUNG: The central airways are patent. There is no consolidation or mass in the chest. Mild subsegmental atelectasis is noted at the right more than left lung base. There is a calcified granuloma in the right middle lobe. There is a 2 mm nodule in the right middle lobe (series 9001 image 305). MEDIASTINUM: No mediastinal or hilar adenopathy. Normal heart size. Atheromatous changes in the aorta, coronary arteries, and mitral annulus. CHEST WALL/AXILLA: No axillary adenopathy. Advanced degenerative changes at the bilateral glenohumeral joints. ABDOMEN: LIVER, GALLBLADDER, AND BILIARY TREE: There is a 1.8 cm hypoattenuating lesion in the left lateral hepatic segment compatible with a cyst. A few additional subcentimeter foci of hypoattenuation are seen which are too small to further characterize. There is no intrahepatic biliary ductal dilatation. The gallbladder is unremarkable with no evidence of radiopaque gallstones, gallbladder wall thickening, or obvious pericholecystic inflammatory changes. PANCREAS: Normal; no mass or surrounding fluid. SPLEEN: Normal size. No focal lesion. ADRENAL GLANDS: Normal; no mass. KIDNEYS AND URETERS: The kidneys are normal in size, shape, and attenuation. No hydronephrosis, hydroureter, or calculi. GASTROINTESTINAL TRACT: Scattered colonic diverticulosis without evidence of acute diverticulitis. The appendix is normal. The stomach and small bowel appear normal. ABDOMINAL WALL: No significant hernia is appreciated. No soft tissue contusion. LYMPHOVASCULAR STRUCTURES: No lymphadenopathy. Dense atheromatous calcifications within the abdominal aorta and its branch vessels. PELVIS: BLADDER: No focal mass or wall thickening seen. No bladder calculi. PELVIC VISCERA: Top normal sized prostate gland with mild heterogeneous calcifications. Surgical clips noted in the testes. FREE FLUID: None identified. OSSEOUS STRUCTURES INCLUDING THE THORACIC AND LUMBAR SPINE: Multilevel degenerative spondylotic changes throughout the lumbar spine with disc height loss, endplate spurring, and facet arthropathy. There is a probable hemangioma in the L3 and L4 vertebral bodies. Spondylotic changes are also noted in the lower cervical spine. There are healed left-sided lower rib fractures. There is an acute mildly displaced angulated fracture through the left femoral neck. IMPRESSION: - Acute mildly displaced and angulated fracture through the left femoral neck. - No acute traumatic findings in the chest, abdomen, or pelvis. - Chronic changes are detailed above. - Incidentally noted 2 mm nodule in the right middle lobe. According to the updated 2017 Fleischner Society recommendations, the advised follow-up imaging for solid nodules < 6 mm is: LOW RISK PATIENT: No routine follow-up. HIGH RISK PATIENT: Optional CT at 12 months. PATIENT: TERRANCE PANDEY PRESENT AGE: 81 PATIENT ACCOUNT NO: [id number] : 37 LOCATION: [facility] ORDERING PHYSICIAN: Trevon DEAN SERVICE DATE: 09/28/17 EXAM TYPE: CAT - CT CERV SPINE WO IV CONTRAST; CT HEAD WO IV CONTRAST; CT MAXILLOFACIAL W/O CON EXAMINATIONS: CT HEAD WITHOUT CONTRAST AND CT CERVICAL SPINE WITHOUT CONTRAST AND CT FACIAL BONES WITHOUT CONTRAST CLINICAL INFORMATION: Fall. Dementia. Facial trauma. COMPARISON: None. TECHNIQUE: Contiguous helical images of the brain were obtained without IV contrast. Contiguous helical images of the facial bones were obtained without IV contrast. Contiguous helical images of the cervical spine were obtained without IV contrast. Multiplanar reconstructions were performed. FINDINGS: There are no pathologic extra-axial fluid collections. The lateral ventricles are prominent and stable. There is no evidence for acute intraparenchymal hemorrhage or infarct. There is neither mass nor mass effect. There is no shift of midline structures. The paranasal sinuses and mastoid air cells are clear. There are no osseous lesions. There are no facial bone fractures. The ostiomeatal units are patent. The cervical vertebra are in normal alignment. There is multilevel disc height loss within the lower cervical spine with anterior osteophyte formation and loss of normal cervical lordosis. There are no fractures. There is no prevertebral soft tissue swelling. There is no cervical lymphadenopathy. The visualized lung apices are clear. IMPRESSION: No evidence for acute intracranial injury. Stable age concordant cerebral atrophy. No evidence for acute injury to the cervical spine. Moderate degenerative change within the cervical spine. No facial bone fractures demonstrated. (Trevon Felix) Departure Departure Disposition: STILL A PATIENT Condition: Stable Clinical Impression Primary Impression: Fracture of femoral neck, left Secondary Impressions: Facial laceration, Fall Referrals: Lio CHASE,Leonie Story (PCP/Family) Departure Forms: Customer Survey General Discharge Information Admission Note Spoke With: Cleo Bailon MD Documentation of Exam: Documentation of any treatments & extenuating circumstances including Concerns Regarding Discharge (functional status, medication knowledge or non-compliance, living conditions, etc.) that warrant an admission rather than observation: [ Patient requires surgical intervention orthopedic consultation and repeat labs pain management and short-term rehabilitation] (Trevon Felix) PA/OPTICAL SCIENTIST Co-Sign Statement Statement: ED Attending supervision documentation- [] I saw and evaluated the patient. I have also reviewed all the pertinent lab results and diagnostic results. I agree with the findings and the plan of care as documented in the PA's/OPTICAL SCIENTIST's documentation. [X] I have reviewed the ED Record and agree with the PA's/OPTICAL SCIENTIST's documentation. [] Additions or exceptions (if any) to the PAs/OPTICAL SCIENTIST's note and plan are summarized below: [] (Adam Chester DO) Critical Care Note Critical Care Note Critical Care Time: 30-74 min (Trevon Felix)
[2017-09-28 16:07] LABS: ABSOLUTE BASOPHIL COUNT 0.1 /CUMM (0.0-0.2); ABSOLUTE EOSINOPHIL COUNT 0.2 /CUMM (0.0-0.7); ABSOLUTE GRANULOCYTE CT 4.4 /CUMM (1.4-6.5); ABSOLUTE LYMPH COUNT 1.3 /CUMM (1.2-3.4); ABSOLUTE MONOCYTE COUNT 0.6 /CUMM (0.10-0.60); BASOPHIL % 0.8 % (0.0-2.0); EOSINOPHIL % 3.4 % (0-5); GRANULOCYTE % 66.8 % (42.2-75.2); HEMATOCRIT 32.5 % (42-52); MEAN CORPUSCULAR HGB 28.3 PG (27.0-31.0); MEAN CORPUSCULAR HGB CONC 33.6 G/DL (33.0-37.0); MEAN CORPUSCULAR VOLUME 84.2 FL (80.0-94.0); MEAN PLATELET VOLUME 8.6 FL (7.4-10.4); PLATELET COUNT 211 /CUMM (130-400); RBC DISTRIBUTION WIDTH 15.5 % (11.5-14.5); RED BLOOD CELL CT 3.85 /CUMM (4.70-6.10); WHITE BLOOD CELL COUNT 6.7 /CUMM (4.8-10.8)
[2017-09-28 16:17] LABS: PT 10.9 SEC (9.4-12.5); PTT 24 SEC (25-37)
--- NOTE | 2017-09-28 16:58 | CT SCAN REPORT ---
EXAMINATION: CT CHEST, ABDOMEN AND PELVIS WITHOUT CONTRAST. CLINICAL INFORMATION: Fall. Dementia. Facial trauma. Left pelvic and hip pain. COMPARISON: None.. TECHNIQUE: Multidetector volumetric imaging was performed from the thoracic inlet through the pubic symphysis without contrast. Multiplanar reformats were rendered and reviewed. Total exam dose-length product 459 mGy-cm FINDINGS: CHEST: LUNG: The central airways are patent. There is no consolidation or mass in the chest. Mild subsegmental atelectasis is noted at the right more than left lung base. There is a calcified granuloma in the right middle lobe. There is a 2 mm nodule in the right middle lobe (series 9001 image 305). MEDIASTINUM: No mediastinal or hilar adenopathy. Normal heart size. Atheromatous changes in the aorta, coronary arteries, and mitral annulus. CHEST WALL/AXILLA: No axillary adenopathy. Advanced degenerative changes at the bilateral glenohumeral joints. ABDOMEN: LIVER, GALLBLADDER, AND BILIARY TREE: There is a 1.8 cm hypoattenuating lesion in the left lateral hepatic segment compatible with a cyst. A few additional subcentimeter foci of hypoattenuation are seen which are too small to further characterize. There is no intrahepatic biliary ductal dilatation. The gallbladder is unremarkable with no evidence of radiopaque gallstones, gallbladder wall thickening, or obvious pericholecystic inflammatory changes. PANCREAS: Normal; no mass or surrounding fluid. SPLEEN: Normal size. No focal lesion. ADRENAL GLANDS: Normal; no mass. KIDNEYS AND URETERS: The kidneys are normal in size, shape, and attenuation. No hydronephrosis, hydroureter, or calculi. GASTROINTESTINAL TRACT: Scattered colonic diverticulosis without evidence of acute diverticulitis. The appendix is normal. The stomach and small bowel appear normal. ABDOMINAL WALL: No significant hernia is appreciated. No soft tissue contusion. LYMPHOVASCULAR STRUCTURES: No lymphadenopathy. Dense atheromatous calcifications within the abdominal aorta and its branch vessels. PELVIS: BLADDER: No focal mass or wall thickening seen. No bladder calculi. PELVIC VISCERA: Top normal sized prostate gland with mild heterogeneous calcifications. Surgical clips noted in the testes. FREE FLUID: None identified. OSSEOUS STRUCTURES INCLUDING THE THORACIC AND LUMBAR SPINE: Multilevel degenerative spondylotic changes throughout the lumbar spine with disc height loss, endplate spurring, and facet arthropathy. There is a probable hemangioma in the L3 and L4 vertebral bodies. Spondylotic changes are also noted in the lower cervical spine. There are healed left-sided lower rib fractures. There is an acute mildly displaced angulated fracture through the left femoral neck. IMPRESSION: - Acute mildly displaced and angulated fracture through the left femoral neck. - No acute traumatic findings in the chest, abdomen, or pelvis. - Chronic changes are detailed above. - Incidentally noted 2 mm nodule in the right middle lobe. According to the updated 2017 Fleischner Society recommendations, the advised follow-up imaging for solid nodules < 6 mm is: LOW RISK PATIENT: No routine follow-up. HIGH RISK PATIENT: Optional CT at 12 months.
--- NOTE | 2017-09-28 17:05 | CT SCAN REPORT ---
EXAMINATIONS: CT HEAD WITHOUT CONTRAST AND CT CERVICAL SPINE WITHOUT CONTRAST AND CT FACIAL BONES WITHOUT CONTRAST CLINICAL INFORMATION: Fall. Dementia. Facial trauma. COMPARISON: None. TECHNIQUE: Contiguous helical images of the brain were obtained without IV contrast. Contiguous helical images of the facial bones were obtained without IV contrast. Contiguous helical images of the cervical spine were obtained without IV contrast. Multiplanar reconstructions were performed. FINDINGS: There are no pathologic extra-axial fluid collections. The lateral ventricles are prominent and stable. There is no evidence for acute intraparenchymal hemorrhage or infarct. There is neither mass nor mass effect. There is no shift of midline structures. The paranasal sinuses and mastoid air cells are clear. There are no osseous lesions. There are no facial bone fractures. The ostiomeatal units are patent. The cervical vertebra are in normal alignment. There is multilevel disc height loss within the lower cervical spine with anterior osteophyte formation and loss of normal cervical lordosis. There are no fractures. There is no prevertebral soft tissue swelling. There is no cervical lymphadenopathy. The visualized lung apices are clear. IMPRESSION: No evidence for acute intracranial injury. Stable age concordant cerebral atrophy. No evidence for acute injury to the cervical spine. Moderate degenerative change within the cervical spine. No facial bone fractures demonstrated.
--- NOTE | 2017-09-28 18:01 | RADIOLOGY REPORT ---
EXAMINATION: XR HIP, LEFT CLINICAL INFORMATION: Left hip pain. COMPARISON: None TECHNIQUE: AP and crosstable lateral views of the left hip. FINDINGS: There is a subcapital left femoral neck fracture with mild varus angulation. The femoral head is seated within a well-formed acetabulum. In addition, there is a lucency traversing the region of the triradiate cartilage which could correspond to a pelvic fracture. IMPRESSION: Left femoral neck fracture. Suspicion for nondisplaced left pelvic fracture.
[2017-09-28] MEDS ORDERED: FERROUS SULFAT325 M3 PO (19:52)
[2017-09-28] MEDS ORDERED: TYLENOL325 M1 PO (19:58)
[2017-09-28] MEDS ORDERED: MILK OF MA400 MG/52 PO (20:00)
[2017-09-28] MEDS ORDERED: DULCOLAX10 M1 RC (20:01)
[2017-09-28] MEDS ORDERED: FLEET ENEMA133 ML RC (20:02)
--- NOTE | 2017-09-28 20:18 | History & Physical ---
Brandie CHASE,Mitra 09/28/17 2016: General Information and HPI MD Statement: I have seen and personally examined TERRANCE PANDEY and documented this H&P. The patient is a 81 year old M who presented with a patient stated chief complaint of [fall]. Source of Information: rehab Exam Limitations: dementia History of Present Illness: Mr. Rene is a 81 year-old gentleman with past medical history significant for Alzheimer's disease, hyperlipidemia, iron deficiency anemia, gout, hypertension, major depressive disorder, type 2 diabetes, osteoarthritis, right bundle branch block who was brought to the hospital from [facility] ([facility]) after a mechanical fall with laceration to his Left cheek. Patient unable to provide any history given history of dementia. Information was obtained from [facility] who mentioned that patient supposed to be handheld and ask for help while walking but never asks for help and is very hard to redirect. He gets agitated when asked to do so. Yesterday he was walking without any assistance and tripped on filipe lift with laceration to his cheek. Allergies/Medications Allergies: Coded Allergies: No Known Allergies (05/18/17) Home Med list Acetaminophen (Tylenol) 325 MG TABLET 2 TAB PO Q4 HRS NEEDED PRN FEVER > 101 (Reported) OR GENERAL DISCOMFORT Amlodipine Besylate 10 MG TABLET 0.5 TAB PO DAILY HEART (Reported) Bisacodyl (Dulcolax) 10 MG SUPP.RECT 1 SUP RC DAILY NEEDED CONSTIPATION ( Reported) USE IF MOM INEFFECTIVE Diphenoxylate HCl/Atropine (Lomotil 2.5-0.025 MG Tablet) 2.5 MG-0.025 MG TABLET 1 TAB PO DAILY NEEDED DIARRHEA (Reported) Donepezil HCl (Aricept) 10 MG TABLET 1 TAB PO QPM mental health (Reported) Escitalopram Oxalate (Lexapro) 20 MG TABLET 1 TAB PO DAILY MENTAL HEALTH ( Reported) Ferrous Sulfate 325 MG (65 MG IRON) TABLET 1 TAB PO BID BLOOD HEALTH ( Reported) Lactobacillus Acidophilus (Acidophilus) 1 EACH CAPSULE 1 CAP PO DAILY GI ( Reported) Lovastatin 40 MG TABLET 1 TAB PO 1800 CHOLESTEROL (Reported) with food Magnesium Hydroxide (Milk Of Magnesia) 400 MG/5 ML ORAL.SUSP 5 ML PO Q3DPRN CONSTIPATION (Reported) Memantine HCl (Namenda XR) 28 MG CAP.SPR.24 1 CAP PO DAILY dementia (Reported ) Metoprolol Succ XL (Toprol XL) 25 MG TAB 1 TAB PO DAILY HEART (Reported) Multivitamin (One Daily Multivitamin) 1 EACH TABLET 1 TAB PO DAILY heart health (Reported) Na Phos,M-B/Na Phos,Di-Ba (Fleet Enema) 19 GRAM-7 GRAM/118 ML ENEMA 1 E RC DAILY NEEDED CONSTIPATION (Reported) USE IF DULCOLAX INEFFECTIVE Psyllium Husk/Aspartame (Iris-Mucil Powder) 3.4 GRAM/5.8 GRAM POWDER 1 TSP PO DAILY GI (Reported) Past History Travel History Traveled to [place] past 21 day No Medical History Neurological: Alzheimer's disease, dementia EENT: NONE Cardiovascular: hypertension, hyperlipidemia, RIGHT BUNDLE BRANCH BLOCK Respiratory: NONE Gastrointestinal: NONE Hepatic: NONE Renal: UTI Musculoskeletal: gout, osteoarthritis Psychiatric: depression, MDD Endocrine: diabetes Blood Disorders: anemia History of MRSA: Yes History of VRE: No History of CDIFF: No Surgical History Surgical History: non-contributory Past Family/Social History Psychosocial History Where do you live? Acute Rehab Smoking Status: Unknown If Ever Smoked ETOH Use: Unable to provide Hx Illicit Drug Use: UTD Functional Ability ADLs Independent: dressing, eating, toileting, bathing. Ambulation: Hand Held Review of Systems Review of Systems Constitutional: Reports: no symptoms. Exam & Diagnostic Data Last 24 Hrs of Vital Signs/I&O Vital Signs Date Time Temp Pulse Resp B/P B/P Pulse O2 O2 Flow FiO2 Mean Ox Delivery Rate 09/28 2345 68 09/28 2320 98.6 683 18 168/78 95 09/28 2102 98.5 67 18 151/85 98 Room Air Room Air 09/28 1844 68 18 152/78 98 Room Air 09/28 1750 97 Room Air 09/28 1554 98.3 61 18 135/63 99 Room Air Room Air Intake & Output 09/29 0800 09/29 0000 09/28 1600 Intake Total 100 Output Total Balance 100 Intake, IV 100 Patient 146 lb 145 lb Weight Weight Bed scale Estimated Measurement Method Physical Exam General Appearance Alert, Agitated, refusing examination Skin No Rashes, Laceration on left cheek Cardiovascular Regular Rate, Normal S1, Normal S2 Lungs Normal Air Movement Abdomen refused examination Extremities refused examination Last 24 Hrs of Labs/Paul: Laboratory Tests 09/28/17 1554: Anion Gap 12, Estimated GFR 39 L, BUN/Creatinine Ratio 24.7, Glucose 140 H, Calcium 9.1, Total Bilirubin 0.3, AST 22, ALT 24, Alkaline Phosphatase 78, Total Protein 6.2 L, Albumin 3.5, Globulin 2.7, Albumin/Globulin Ratio 1.3, PT 10.9, INR 1.00, APTT 24 L, CBC w Diff NO MAN DIFF REQ, RBC 3.85 L, MCV 84.2, MCH 28.3, MCHC 33.6, RDW 15.5 H, MPV 8.6, Gran % 66.8, Lymphocytes % 19.9 L, Monocytes % 9.1, Eosinophils % 3.4, Basophils % 0.8, Absolute Granulocytes 4.4, Absolute Lymphocytes 1.3, Absolute Monocytes 0.6, Absolute Eosinophils 0.2, Absolute Basophils 0.1 Diagnostic Data EKG Results NSR with RBBB, Heart Rate 74, QTc 466 Other Results CAT - CT ABD & PELVIS W/O IV CONTRAS; CT CHEST WO IV CONTRAST IMPRESSION: - Acute mildly displaced and angulated fracture through the left femoral neck. - No acute traumatic findings in the chest, abdomen, or pelvis. - Chronic changes are detailed above. - Incidentally noted 2 mm nodule in the right middle lobe. According to the updated 2017 Fleischner Society recommendations, the advised follow-up T CERV SPINE WO IV CONTRAST; CT HEAD WO IV CONTRAST; CT MAXILLOFACIAL W/O CON IMPRESSION: No evidence for acute intracranial injury. Stable age concordant cerebral atrophy. No evidence for acute injury to the cervical spine. Moderate degenerative change within the cervical spine. No facial bone fractures demonstrated. XRY-HIP 2-3 VIEWS, LEFT IMPRESSION: Left femoral neck fracture. Suspicion for nondisplaced left pelvic fracture. Assessment/Plan Assessment: Mr. Rene is a 81 year-old gentleman with past medical history significant for Alzheimer's disease, hyperlipidemia, iron deficiency anemia, gout, hypertension, major depressive disorder, type 2 diabetes, osteoarthritis, right bundle branch block who was brought to the hospital from [facility] ([facility]) after a mechanical fall with laceration to his Left cheek. Problem list; 1. Femoral Neck fracture 2. Advanced Dementia 3. RBBB on EKG 4. ELIAN 5. Chronic medical conditions. - Admit the patient to general medicine floor - Surgical consult - Cardiology consult for medical clearance before the surgery given right bundle branch block. - Keep nothing by mouth in anticipation of surgery in am. - Pain managment with IV tylenol. - Continue home medications. - Accu-Cheks. Patient currently not on any oral hypoglycemic agents or insulin, will put the patient on NovoLog sliding scale depending on Accu-Cheks. - Gentle IV fluids and repeat BEP in am. - Discussion with the and orthopedic surgeon regarding further goals of care/. DVT prophylaxis; subcutaneous heparin Patient is DNR but okay to Intubate per the (POA) As Ranked By This Provider Problem List: 1. Dementia 2. Fall Core Measures/Misc (11/29) Acute Coronary Syndrome ACS Diagnosis: No Congestive Heart Failure Congestive Heart Failure Diagnosis No Cerebrovascular Accident CVA/TIA Diagnosis: No VTE (View Protocol) VTE Risk Factors Age>40 No Mechanical VTE Prophylaxis d/t Medical Contraindication No VTE Pharm Prophylaxis d/t NA PharmProphylax ordered Sepsis (View protocol) Sepsis Present: No If YES complete Sepsis Event Note If YES complete Sepsis Event Note Cleo Bailon MD 09/28/172030: Core Measures/Misc (11/29) Sepsis (View protocol) If YES complete Sepsis Event Note If YES complete Sepsis Event Note Attending MD Review Statement Attending Statement Attending MD Statement: examined this patient, discuss w/resident/PA/MATERIALS ENGINEER, agreed w/resident/PA/MATERIALS ENGINEER, reviewed EMR data (avail), discussed with nursing, amended to note Attending Assessment/Plan: Patient is a 81-year-old male whose history is significant for dementia. He has a history of fall about 4 months ago when he was admitted to [facility]. At that time was found to have a small subarachnoid hemorrhage and left distal humerus fracture. He was managed conservatively and discharged in stable condition. Fall at that time was mechanical. He is brought in for evaluation again today following another fall at the [place] [facility] which was described as mechanical. he was said to have tripped over a filipe lift. He is reported to be independent at baseline. He was found to have a laceration to his left cheek. He had a series of imaging in the emergency room that revealed left pelvic fracture as well as left femoral neck fracture. Head CT showed no evidence of an acute intracranial process. The orthopedic service was consulted and patient referred to medical service for further management. Patient is lying comfortably on the hospital stretcher not in any acute distress. He offers no complaints. He is unable to provide any significant history due to his profound dementia. He fortunately is not in any pain. On examination he is afebrile. Hemodynamically stable. Heart sounds are regular with no audible murmur. Lungs are clear bilaterally. Abdomen soft and nontender. He has no peripheral edema. He has a laceration over the left cheek that has been sutured. As ecchymotic areas predominantly on the left forearm. Problems: 1. Left femoral neck fracture and pelvic bone fractures following cord was described as mechanical fall. 2. Advanced dementia 3. Chronic anemia 4. Chronic kidney disease stage III 5. Abnormal EKG with right bundle branch block; chronic Recommendations: -Admit to inpatient medical service. -Pain management with Tylenol 650 mg every 6 hours as needed pain. -Avoid opioids in this elderly opioid dorie patient. -Consultation with orthopedic service. -Due to his dementia were unable to obtain any significant history regarding his functional status or metabolic equivalents. In view of his abnormal EKG we will recommend consultation with the ux interaction designer and was brought to the clinic for surgery. -I would recommend a meeting with the patient's family and the orthopedic service before proceeding with any surgical intervention in order to clearly state the goals of any surgical intervention particularly in view of his advanced dementia as well as to discuss the risk and benefits of surgery. -Continue antihypertensive regimen with amlodipine and metoprolol XL. Hold his aspirin for now. Continue his Lexapro. Given the advanced stage of his dementia the benefits of his Aricept and Namenda are questionable at present. I would recommend further discussion with his primary care provider upon discharge the patient's family. Continue his home bowel regimen. -Repeat LFTs in a.m. Obtain viral hepatitis panel. -DVT prophylaxis heparin subcu.
--- NOTE | 2017-09-28 20:40 | Admission Certification ---
Admission Certification Certification Statement - As attending physician, I certify that at the time of - admission, based on clinical presentation, severity of - symptoms, need for further diagnostic testing and - therapeutic interventions, and risk of adverse outcomes - without in-hospital treatment, in my clinical assessment, - this patient requires an acute hospital stay for a minimum - of two nights or longer. I have also considered psychsocial - factors such as support system, advanced age, financial - issues, cognitive issues, and failed out-patient treatments, - past re-admission history, safety of patient, and lack of - compliance as applicable. Specific rationale supporting this admission is: Patient requires hospitalization for further management of his hip fracture.
[2017-09-28 23:20] VITALS: BP 168/78
--- NOTE | 2017-09-29 00:34 | Cons- Orthopedic ---
General Information and HPI Consulting Request Date of Consult: 09/29/17 Requested By: Cleo Bailon MD Reason for Consult: Left femoral neck fracture Source of Information: old records Exam Limitations: dementia History of Present Illness: This is a 81-year-old male with a past medical history significant for dementia and Alzheimer's who is status post a fall and [facility] Orthopedic surgery was consulted for left femoral neck fracture and suspicion for nondisplaced left pelvic fracture. History is otherwise unobtainable from the patient. Please see hospitalist H&P for additional details of his admission. Allergies/Medications Allergies: Coded Allergies: No Known Allergies (05/18/17) Home Med List: Acetaminophen (Tylenol) 325 MG TABLET 2 TAB PO Q4 HRS NEEDED PRN FEVER > 101 (Reported) OR GENERAL DISCOMFORT Amlodipine Besylate 10 MG TABLET 0.5 TAB PO DAILY HEART (Reported) Aspirin (Aspirin*) 81 MG TAB.CHEW 1 TAB PO DAILY HEART HEALTH (Reported) Bisacodyl (Dulcolax) 10 MG SUPP.RECT 1 SUP RC DAILY NEEDED CONSTIPATION ( Reported) USE IF MOM INEFFECTIVE Diphenoxylate HCl/Atropine (Lomotil 2.5-0.025 MG Tablet) 2.5 MG-0.025 MG TABLET 1 TAB PO DAILY NEEDED DIARRHEA (Reported) Donepezil HCl (Aricept) 10 MG TABLET 1 TAB PO QPM mental health (Reported) Escitalopram Oxalate (Lexapro) 20 MG TABLET 1 TAB PO DAILY MENTAL HEALTH ( Reported) Ferrous Sulfate 325 MG (65 MG IRON) TABLET 1 TAB PO BID BLOOD HEALTH ( Reported) Lactobacillus Acidophilus (Acidophilus) 1 EACH CAPSULE 1 CAP PO DAILY GI ( Reported) Lovastatin 40 MG TABLET 1 TAB PO 1800 CHOLESTEROL (Reported) with food Magnesium Hydroxide (Milk Of Magnesia) 400 MG/5 ML ORAL.SUSP 5 ML PO Q3DPRN CONSTIPATION (Reported) Memantine HCl (Namenda XR) 28 MG CAP.SPR.24 1 CAP PO DAILY dementia (Reported ) Metoprolol Succ XL (Toprol XL) 25 MG TAB 1 TAB PO DAILY HEART (Reported) Multivitamin (One Daily Multivitamin) 1 EACH TABLET 1 TAB PO DAILY heart health (Reported) Na Phos,M-B/Na Phos,Di-Ba (Fleet Enema) 19 GRAM-7 GRAM/118 ML ENEMA 1 E RC DAILY NEEDED CONSTIPATION (Reported) USE IF DULCOLAX INEFFECTIVE Psyllium Husk/Aspartame (Iris-Mucil Powder) 3.4 GRAM/5.8 GRAM POWDER 1 TSP PO DAILY GI (Reported) Current Medications: Current Medications Sig/Jyoti Start time Last Medication Dose Route Stop Time Status Admin Acetaminophen 650 MG Q6-PRN PRN 09/29 0015 AC PO Acetaminophen 0 .STK-MED ONE 09/28 1701 DC IV Acetaminophen 1,000 MG ONCE ONE 09/28 1545 DC 09/28 N/A 1 UNIT IV 09/28 1559 1659 Dextrose/Sodium 1,000 ML Q13H 09/29 0015 AC Chloride IV Past History Medical History Neurological: Alzheimer's disease, dementia EENT: NONE Cardiovascular: hypertension, hyperlipidemia, RIGHT BUNDLE BRANCH BLOCK Respiratory: NONE Gastrointestinal: NONE Hepatic: NONE Renal: UTI Musculoskeletal: gout, osteoarthritis Psychiatric: depression, MDD Endocrine: diabetes Blood Disorders: anemia Surgical History Pertinent Surgical History: non-contributory Psychosocial History ETOH Use: 6 Illicit Drug Use: UTD Functional Ability ADLs Independent: dressing, eating, toileting, bathing. Ambulation: independent Review of Systems Review of Systems: unobtainable Exam & Diagnostic Data Vital Signs and I&O Vital Signs Date Time Temp Pulse Resp B/P B/P Pulse O2 O2 Flow FiO2 Mean Ox Delivery Rate 09/28 2345 68 09/28 2320 98.6 683 18 168/78 95 09/28 2102 98.5 67 18 151/85 98 Room Air Room Air 09/28 1844 68 18 152/78 98 Room Air 09/28 1750 97 Room Air 09/28 1554 98.3 61 18 135/63 99 Room Air Room Air Intake & Output 09/29 0800 09/29 0000 09/28 1600 09/28 0800 09/28 0000 09/27 1600 Intake Total 100 Output Total Balance 100 Intake, IV 100 Patient 145 lb Weight Weight Estimated Measurement Method Physical Exam: General: Alert, awake, pleasantly confused, no acute distress Extremities: Pain to palpation over the left hip and inguinal region, distal neurovascular status intact Last 24 Hours of Labs: Laboratory Tests 09/28 1554 Chemistry Sodium (137 - 145 mmol/L) 138 Potassium (3.5 - 5.1 mmol/L) 4.3 Chloride (98 - 107 mmol/L) 102 Carbon Dioxide (22 - 30 mmol/L) 24 Anion Gap (5 - 16) 12 BUN (9 - 20 mg/dL) 42 H Creatinine (0.7 - 1.2 mg/dL) 1.7 H Estimated GFR (>60 ml/min) 39 L BUN/Creatinine Ratio (7 - 25 %) 24.7 Glucose (65 - 99 mg/dL) 140 H Calcium (8.4 - 10.2 mg/dL) 9.1 Total Bilirubin (0.2 - 1.3 mg/dL) 0.3 AST (17 - 59 U/L) 22 ALT (21 - 72 U/L) 24 Alkaline Phosphatase (< 127 U/L) 78 Total Protein (6.3 - 8.2 g/dL) 6.2 L Albumin (3.5 - 5.0 g/dL) 3.5 Globulin (1.9 - 4.2 gm/dL) 2.7 Albumin/Globulin Ratio (1.1 - 2.2 %) 1.3 Coagulation PT (9.4 - 12.5 SEC) 10.9 INR (0.90 - 1.17) 1.00 APTT (25 - 37 SEC) 24 L Hematology CBC w Diff NO MAN DIFF REQ WBC (4.8 - 10.8 /CUMM) 6.7 RBC (4.70 - 6.10 /CUMM) 3.85 L Hgb (14.0 - 18.0 G/DL) 10.9 L Hct (42 - 52 %) 32.5 L MCV (80.0 - 94.0 FL) 84.2 MCH (27.0 - 31.0 PG) 28.3 MCHC (33.0 - 37.0 G/DL) 33.6 RDW (11.5 - 14.5 %) 15.5 H Plt Count (130 - 400 /CUMM) 211 MPV (7.4 - 10.4 FL) 8.6 Gran % (42.2 - 75.2 %) 66.8 Lymphocytes % (20.5 - 51.1 %) 19.9 L Monocytes % (1.7 - 9.3 %) 9.1 Eosinophils % (0 - 5 %) 3.4 Basophils % (0.0 - 2.0 %) 0.8 Absolute Granulocytes (1.4 - 6.5 /CUMM) 4.4 Absolute Lymphocytes (1.2 - 3.4 /CUMM) 1.3 Absolute Monocytes (0.10 - 0.60 /CUMM) 0.6 Absolute Eosinophils (0.0 - 0.7 /CUMM) 0.2 Absolute Basophils (0.0 - 0.2 /CUMM) 0.1 Imaging Results: Left hip x-ray 09/28/2017: Left femoral neck fracture, suspicion for nondisplaced left pelvic fracture Other Results: Please see electronic chart Assessment/Plan Assessment/Plan This is a 81-year-old male with a past medical history significant for dementia and Alzheimer's who is status post a fall and presented [facility] emergency department [facility]. Orthopedic surgery was consulted for left femoral neck fracture and suspicion for nondisplaced left pelvic fracture. At this time would recommend nothing by mouth, IV fluids, when necessary analgesia, hold any anticoagulation, and nonweightbearing status at this time. Case has been discussed with the attending. Surgical intervention to be determined after thorough review of his diagnostic imaging, further recommendations to follow at that time. Thank you for allowing us to participate in this patient's care. Problem List: 1. Fracture of femoral neck, left Copies To: Bear Gasca MD Consult Acknowledgment - Thank you for your consult request.
[2017-09-29 06:40] VITALS: BP 140/76
--- NOTE | 2017-09-29 07:24 | PN- Housestaff ---
See Addendum Subjective Follow-up For: Fall Subjective: No acute events overnight, afebrile. Patient has advanced alzheimers dementia, Patient is awake and alert, but not oriented to time, place or person. Respone to when asked about the president "I dont know him, but i say hi to him everymorning", does not know where he is. When asked to sit forward or more legs , says he cannot perform the action because it will hurt, but unable to state where it will hurt. Review of Systems Constitutional: Reports: see HPI. Objective Last 24 Hrs of Vital Signs/I&O Vital Signs Date Time Temp Pulse Resp B/P B/P Pulse O2 O2 Flow FiO2 Mean Ox Delivery Rate 09/29 0640 98.1 72 20 140/76 98 Room Air 09/28 2345 68 09/28 2320 98.6 683 18 168/78 95 09/28 2102 98.5 67 18 151/85 98 Room Air Room Air 09/28 1844 68 18 152/78 98 Room Air 09/28 1750 97 Room Air 09/28 1554 98.3 61 18 135/63 99 Room Air Room Air Intake & Output 09/29 0800 09/29 0000 09/28 1600 Intake Total 735 100 Output Total Balance 735 100 Intake, IV 675 100 Intake, Oral 60 Number 0 Bowel Movements Patient 146 lb 145 lb Weight Weight Bed scale Estimated Measurement Method Physical Exam General Appearance: Alert, Cooperative Skin: 2 in lesion on left cheek closed with Steri-strips HEENT: PERRLA, EOMI Cardiovascular: Regular Rate, Normal S1, Normal S2 Lungs: Clear to Auscultation, Normal Air Movement Abdomen: Normal Bowel Sounds, Soft, No Tenderness Neurological: unable to assess strength in extremities, patient unable to cooperate Assessment/Plan Assessment: Mr. Schwartz is a 81 year-old gentleman with past medical history significant for Alzheimer's disease, hyperlipidemia, iron deficiency anemia, gout, hypertension, major depressive disorder, type 2 diabetes, osteoarthritis, right bundle branch block who was brought to the hospital from [facility] ([facility]) after a mechanical fall with laceration to his Left cheek, and subsequent imaging showed fracture of left femoral neck. Problem List: 1. Fall 2. Left. Femoral neck fracture 3. Alzhemeir's dementia 4. Hypertension 5. Hyperlipidemia #Fall: Maxillofacial CT negative for facial bone fractures, CT Cervical spine is negative for acute intracranial injury, no acute injury to the cervical spine Plan: - Will consult PT following surgery #Left Femoral neck fracture- 2/ fall. Pelvic X-ray on 09/28/17 shows left femoral neck fracture, suspicious for non-displaced left pelvic fracture. Pelvic CT on 09/28/17 positive for Acute mildly displaced and angulated fracture through the left femoral neck. Plan: -Patient evaulated by Dr. Gasca, scheduled for tara arthroplasty on 09/30/17 - pain control - NPO after midnight 2. RBBB: plan - cardiology consult - TTE 3. Alzheimer's dementia: plan: - Memantine 10mg BID - Donepezil 10mg 4. Hypertension plan: - Metoprolol 25mg 5. Hyperlipidemia plan: - Atorvastatin 10mg Problem List: 1. Fall Pain Ratin Pain Location: unable to verbalize pain Pain Goal: Pain 4 or less Pain Plan: tylenol Tomorrow's Labs & Rationales: cbc
[2017-09-29 09:48] LABS: ABSOLUTE BASOPHIL COUNT 0 /CUMM (0.0-0.2); ABSOLUTE EOSINOPHIL COUNT 0.1 /CUMM (0.0-0.7); ABSOLUTE GRANULOCYTE CT 6.4 /CUMM (1.4-6.5); ABSOLUTE LYMPH COUNT 0.9 /CUMM (1.2-3.4); ABSOLUTE MONOCYTE COUNT 0.6 /CUMM (0.10-0.60); BASOPHIL % 0.5 % (0.0-2.0); EOSINOPHIL % 0.9 % (0-5); GRANULOCYTE % 79.5 % (42.2-75.2); HEMATOCRIT 31.9 % (42-52); MEAN CORPUSCULAR HGB 28.5 PG (27.0-31.0); MEAN CORPUSCULAR HGB CONC 33.9 G/DL (33.0-37.0); MEAN PLATELET VOLUME 8.5 FL (7.4-10.4); PLATELET COUNT 218 /CUMM (130-400); RBC DISTRIBUTION WIDTH 15.7 % (11.5-14.5)
--- NOTE | 2017-09-29 13:11 | Cons- Cardiology ---
General Information and HPI Consulting Request Date of Consult: 09/29/17 Requested By: Maksim Franks MD Reason for Consult: Abnormal ECG; Preoperative clearance Source of Information: patient, family Exam Limitations: poor historian History of Present Illness: The patient is a 81 year-old gentleman with no known past cardiac history. His past history is remarkable for HTN, HLD, anemia, depression, DM, Alzheimers and a previously noted RBBB. The patient is now here after a mechanical fall with a resultant hip fracture. The notes that the patient has no cardiac history. SHe notes that he has remained ambulatory and reasonably active at the [facility] and has never had any cardiac symptoms We have no prior cardiac evaluation available for review. Allergies/Medications Allergies: Coded Allergies: No Known Allergies (05/18/17) Home Med List: Acetaminophen (Tylenol) 325 MG TABLET 2 TAB PO Q4 HRS NEEDED PRN FEVER > 101 (Reported) OR GENERAL DISCOMFORT Amlodipine Besylate 10 MG TABLET 0.5 TAB PO DAILY HEART (Reported) Bisacodyl (Dulcolax) 10 MG SUPP.RECT 1 SUP RC DAILY NEEDED CONSTIPATION ( Reported) USE IF MOM INEFFECTIVE Diphenoxylate HCl/Atropine (Lomotil 2.5-0.025 MG Tablet) 2.5 MG-0.025 MG TABLET 1 TAB PO DAILY NEEDED DIARRHEA (Reported) Donepezil HCl (Aricept) 10 MG TABLET 1 TAB PO QPM mental health (Reported) Escitalopram Oxalate (Lexapro) 20 MG TABLET 1 TAB PO DAILY MENTAL HEALTH ( Reported) Ferrous Sulfate 325 MG (65 MG IRON) TABLET 1 TAB PO BID BLOOD HEALTH ( Reported) Lactobacillus Acidophilus (Acidophilus) 1 EACH CAPSULE 1 CAP PO DAILY GI ( Reported) Lovastatin 40 MG TABLET 1 TAB PO 1800 CHOLESTEROL (Reported) with food Magnesium Hydroxide (Milk Of Magnesia) 400 MG/5 ML ORAL.SUSP 5 ML PO Q3DPRN CONSTIPATION (Reported) Memantine HCl (Namenda XR) 28 MG CAP.SPR.24 1 CAP PO DAILY dementia (Reported ) Metoprolol Succ XL (Toprol XL) 25 MG TAB 1 TAB PO DAILY HEART (Reported) Multivitamin (One Daily Multivitamin) 1 EACH TABLET 1 TAB PO DAILY heart health (Reported) Na Phos,M-B/Na Phos,Di-Ba (Fleet Enema) 19 GRAM-7 GRAM/118 ML ENEMA 1 E RC DAILY NEEDED CONSTIPATION (Reported) USE IF DULCOLAX INEFFECTIVE Psyllium Husk/Aspartame (Iris-Mucil Powder) 3.4 GRAM/5.8 GRAM POWDER 1 TSP PO DAILY GI (Reported) Current Medications: Current Medications Sig/Jyoti Start time Last Medication Dose Route Stop Time Status Admin Acetaminophen 650 MG Q6-PRN PRN 09/29 0015 AC 09/29 PO 1144 Acetaminophen 0 .STK-MED ONE 09/28 1701 DC IV Acetaminophen 1,000 MG ONCE ONE 09/28 1545 DC 09/28 N/A 1 UNIT IV 09/28 1559 1659 Amlodipine Besylate 5 MG DAILY 09/29 09 DC PO Amlodipine Besylate 5 MG DAILY 09/29 0900 AC 09/29 PO 1010 Atorvastatin Calcium 10 MG 1700 09/29 1700 AC PO Bisacodyl 10 MG DAILY NEEDED PRN 09/29 0215 AC [place] Dextrose/Sodium 1,000 ML Q13H 09/30 0000 AC Chloride IV Dextrose/Sodium 1,000 ML Q13H 09/29 0600 DC Chloride IV Dextrose/Sodium 1,000 ML Q13H 09/29 0015 DC 09/29 Chloride IV 0041 Donepezil HCl 10 MG QPM 09/29 2100 AC PO Escitalopram Oxalate 20 MG DAILY 09/29 0900 AC 09/29 PO 1009 Ferrous Sulfate 325 MG BID 09/29 0900 AC 09/29 PO 1010 Heparin Sodium 5,000 UNIT Q8 09/29 0600 AC 09/29 (Porcine) SC 0617 Insulin Aspart 0 TIDAC 09/29 0800 AC SC 09/29 2355 Insulin Human Regular 0 Q6 09/29 2359 AC SC Magnesium Hydroxide 30 ML DAILY NEEDED PRN 09/29 0230 AC PO Memantine 10 MG BID 09/29 0900 AC 09/29 PO 1009 Metoprolol Succinate 25 MG DAILY 09/29 0900 AC 09/29 PO 1009 Multivitamins 1 TAB DAILY 09/29 0900 AC 09/29 Therapeutic PO 1010 Sodium Phosphate 1 UNIT DAILY NEEDED PRN 09/29 0230 AC [place] Past History Travel History Traveled to [place] past 21 day No Medical History Neurological: Alzheimer's disease, dementia EENT: NONE Cardiovascular: hypertension, hyperlipidemia, RIGHT BUNDLE BRANCH BLOCK Respiratory: NONE Gastrointestinal: NONE Hepatic: NONE Renal: UTI Musculoskeletal: gout, osteoarthritis Psychiatric: anxiety, depression, MDD Endocrine: diabetes Blood Disorders: anemia Surgical History Surgical History: non-contributory Psychosocial History Where Do You Live? Acute Rehab Smoking Status: Unknown If Ever Smoked ETOH Use: Unable to provide Hx Illicit Drug Use: UTD Functional Ability ADLs Independent: dressing, eating, toileting, bathing. Ambulation: Hand Held Exam & Diagnostic Data Vital Signs and I&O Vital Signs Date Time Temp Pulse Resp B/P B/P Pulse O2 O2 Flow FiO2 Mean Ox Delivery Rate 09/29 1010 72 140/76 09/29 1009 72 140/76 09/29 0800 Room Air 09/29 0640 98.1 72 20 140/76 98 Room Air 09/28 2345 68 09/28 2320 98.6 683 18 168/78 95 09/28 2102 98.5 67 18 151/85 98 Room Air Room Air 09/28 1844 68 18 152/78 98 Room Air 09/28 1750 97 Room Air 09/28 1554 98.3 61 18 135/63 99 Room Air Room Air Intake & Output 09/29 1600 09/29 0800 09/29 0000 09/28 1600 09/28 0800 09/28 0000 Intake Total 735 100 Output Total Balance 735 100 Intake, IV 675 100 Intake, Oral 60 Number 0 Bowel Movements Patient 146 lb 145 lb Weight Weight Bed scale Estimated Measurement Method Labs/Paul Results: Laboratory Tests 09/29 09/29 0915 0610 Chemistry Sodium (137 - 145 mmol/L) 137 Potassium (3.5 - 5.1 mmol/L) 3.9 Chloride (98 - 107 mmol/L) 102 Carbon Dioxide (22 - 30 mmol/L) 24 Anion Gap (5 - 16) 11 BUN (9 - 20 mg/dL) 25 H Creatinine (0.7 - 1.2 mg/dL) 1.1 Estimated GFR (>60 ml/min) > 60 BUN/Creatinine Ratio (7 - 25 %) 22.7 Total Bilirubin (0.2 - 1.3 mg/dL) 0.5 Cancelled Direct Bilirubin (< 0.4 mg/dL) 0 Cancelled AST (17 - 59 U/L) 19 Cancelled ALT (21 - 72 U/L) 25 Cancelled Alkaline Phosphatase (< 127 U/L) 87 Cancelled Total Protein (6.3 - 8.2 g/dL) 6.1 L Cancelled Albumin (3.5 - 5.0 g/dL) 3.4 L Cancelled Hematology CBC w Diff NO MAN DIFF REQ WBC (4.8 - 10.8 /CUMM) 8.0 RBC (4.70 - 6.10 /CUMM) 3.80 L Hgb (14.0 - 18.0 G/DL) 10.8 L Hct (42 - 52 %) 31.9 L MCV (80.0 - 94.0 FL) 84.0 MCH (27.0 - 31.0 PG) 28.5 MCHC (33.0 - 37.0 G/DL) 33.9 RDW (11.5 - 14.5 %) 15.7 H Plt Count (130 - 400 /CUMM) 218 MPV (7.4 - 10.4 FL) 8.5 Gran % (42.2 - 75.2 %) 79.5 H Lymphocytes % (20.5 - 51.1 %) 11.3 L Monocytes % (1.7 - 9.3 %) 7.8 Eosinophils % (0 - 5 %) 0.9 Basophils % (0.0 - 2.0 %) 0.5 Absolute Granulocytes (1.4 - 6.5 /CUMM) 6.4 Absolute Lymphocytes (1.2 - 3.4 /CUMM) 0.9 L Absolute Monocytes (0.10 - 0.60 /CUMM) 0.6 Absolute Eosinophils (0.0 - 0.7 /CUMM) 0.1 Absolute Basophils (0.0 - 0.2 /CUMM) 0 Serology Hepatitis A IgM Ab (NONREACTIVE) NONREACTIVE Cancelled Hep Bs Antigen (NONREACTIVE) NONREACTIVE Cancelled Hep B Core IgM Ab Conf (NONREACTIVE) NONREACTIVE Cancelled Hepatitis C Antibody (NONREACTIVE) NONREACTIVE Cancelled 09/28 1554 Chemistry Sodium (137 - 145 mmol/L) 138 Potassium (3.5 - 5.1 mmol/L) 4.3 Chloride (98 - 107 mmol/L) 102 Carbon Dioxide (22 - 30 mmol/L) 24 Anion Gap (5 - 16) 12 BUN (9 - 20 mg/dL) 42 H Creatinine (0.7 - 1.2 mg/dL) 1.7 H Estimated GFR (>60 ml/min) 39 L BUN/Creatinine Ratio (7 - 25 %) 24.7 Glucose (65 - 99 mg/dL) 140 H Calcium (8.4 - 10.2 mg/dL) 9.1 Total Bilirubin (0.2 - 1.3 mg/dL) 0.3 AST (17 - 59 U/L) 22 ALT (21 - 72 U/L) 24 Alkaline Phosphatase (< 127 U/L) 78 Total Protein (6.3 - 8.2 g/dL) 6.2 L Albumin (3.5 - 5.0 g/dL) 3.5 Globulin (1.9 - 4.2 gm/dL) 2.7 Albumin/Globulin Ratio (1.1 - 2.2 %) 1.3 Coagulation PT (9.4 - 12.5 SEC) 10.9 INR (0.90 - 1.17) 1.00 APTT (25 - 37 SEC) 24 L Hematology CBC w Diff NO MAN DIFF REQ WBC (4.8 - 10.8 /CUMM) 6.7 RBC (4.70 - 6.10 /CUMM) 3.85 L Hgb (14.0 - 18.0 G/DL) 10.9 L Hct (42 - 52 %) 32.5 L MCV (80.0 - 94.0 FL) 84.2 MCH (27.0 - 31.0 PG) 28.3 MCHC (33.0 - 37.0 G/DL) 33.6 RDW (11.5 - 14.5 %) 15.5 H Plt Count (130 - 400 /CUMM) 211 MPV (7.4 - 10.4 FL) 8.6 Gran % (42.2 - 75.2 %) 66.8 Lymphocytes % (20.5 - 51.1 %) 19.9 L Monocytes % (1.7 - 9.3 %) 9.1 Eosinophils % (0 - 5 %) 3.4 Basophils % (0.0 - 2.0 %) 0.8 Absolute Granulocytes (1.4 - 6.5 /CUMM) 4.4 Absolute Lymphocytes (1.2 - 3.4 /CUMM) 1.3 Absolute Monocytes (0.10 - 0.60 /CUMM) 0.6 Absolute Eosinophils (0.0 - 0.7 /CUMM) 0.2 Absolute Basophils (0.0 - 0.2 /CUMM) 0.1 Diagnostic Data Other Results EXAM TYPE: CAT - CT ABD & PELVIS W/O IV CONTRAS; CT CHEST WO IV CONTRAST EXAMINATION: CT CHEST, ABDOMEN AND PELVIS WITHOUT CONTRAST. CLINICAL INFORMATION: Fall. Dementia. Facial trauma. Left pelvic and hip pain. COMPARISON: None.. TECHNIQUE: Multidetector volumetric imaging was performed from the thoracic inlet through the pubic symphysis without contrast. Multiplanar reformats were rendered and reviewed. Total exam dose-length product 459 mGy-cm FINDINGS: CHEST: LUNG: The central airways are patent. There is no consolidation or mass in the chest. Mild subsegmental atelectasis is noted at the right more than left lung base. There is a calcified granuloma in the right middle lobe. There is a 2 mm nodule in the right middle lobe (series 9001 image [id number]). MEDIASTINUM: No mediastinal or hilar adenopathy. Normal heart size. Atheromatous changes in the aorta, coronary arteries, and mitral annulus. CHEST WALL/AXILLA: No axillary adenopathy. Advanced degenerative changes at the bilateral glenohumeral joints. ABDOMEN: LIVER, GALLBLADDER, AND BILIARY TREE: There is a 1.8 cm hypoattenuating lesion in the left lateral hepatic segment compatible with a cyst. A few additional subcentimeter foci of hypoattenuation are seen which are too small to further characterize. There is no intrahepatic biliary ductal dilatation. The gallbladder is unremarkable with no evidence of radiopaque gallstones, gallbladder wall thickening, or obvious pericholecystic inflammatory changes. PANCREAS: Normal; no mass or surrounding fluid. SPLEEN: Normal size. No focal lesion. ADRENAL GLANDS: Normal; no mass. KIDNEYS AND URETERS: The kidneys are normal in size, shape, and attenuation. No hydronephrosis, hydroureter, or calculi. GASTROINTESTINAL TRACT: Scattered colonic diverticulosis without evidence of acute diverticulitis. The appendix is normal. The stomach and small bowel appear normal. ABDOMINAL WALL: No significant hernia is appreciated. No soft tissue contusion. LYMPHOVASCULAR STRUCTURES: No lymphadenopathy. Dense atheromatous calcifications within the abdominal aorta and its branch vessels. PELVIS: BLADDER: No focal mass or wall thickening seen. No bladder calculi. PELVIC VISCERA: Top normal sized prostate gland with mild heterogeneous calcifications. Surgical clips noted in the testes. FREE FLUID: None identified. OSSEOUS STRUCTURES INCLUDING THE THORACIC AND LUMBAR SPINE: Multilevel degenerative spondylotic changes throughout the lumbar spine with disc height loss, endplate spurring, and facet arthropathy. There is a probable hemangioma in the L3 and L4 vertebral bodies. Spondylotic changes are also noted in the lower cervical spine. There are healed left-sided lower rib fractures. There is an acute mildly displaced angulated fracture through the left femoral neck. IMPRESSION: - Acute mildly displaced and angulated fracture through the left femoral neck. - No acute traumatic findings in the chest, abdomen, or pelvis. - Chronic changes are detailed above. - Incidentally noted 2 mm nodule in the right middle lobe. According to the updated 2017 Fleischner Society recommendations, the advised follow-up imaging for solid nodules < 6 mm is: Assessment/Plan Assessment/Plan Assessment: 1. Abnormal ECG / RBBB 2. Heart murmur 3. Left femoral neck fracture 4. Dementia 5. ELIAN 6. HTN 7. HLD Recommendations: - THe patient has an abnormal ECG with RBBB which appears unchanged from previously. HIs examination is otherwise essentially unremarkable and he has no known symptoms or cardiac issues. - In view of the available information and the type of surgery planned, I believe the patient to be stable for said surgery from a cardiac standpoint. I have discussed this with the patient's who understands the attendant risks of the surgery and agrees. - Please check a baseline echocardiogram for LV function, etc. - Continue regular meds including BBs Consult Acknowledgment - Thank you for your consult request.
[2017-09-29 14:45] VITALS: BP 140/78
[2017-09-29 23:00] VITALS: BP 156/64
[2017-09-30 06:00] VITALS: BP 134/75
--- NOTE | 2017-09-30 06:59 | ECHOCARDIOGRAM REPORT ---
TERRANCE PANDEY Age: 81 : 1935 Gender: M Exam Date: 09/29/2017 15:47 Exam Location: [address] [place] [address] Ht (in): 68 Wt (lb): 146 BSA: 1.78 BP: 140 / 76 Ordering Physician: Sukhdev Hernandez MD Referring Physician: Lei Lisa MD Technologist: Lashonda Grant [facility] Room Number: 201 Indications: Hypertension Rhythm: Sinus Technical Quality: Poor, Technically difficult study FINDINGS Left Ventricle Normal size left ventricle. No obvious regional wall motion abnormalities. Normal left ventricular ejection fraction estimated at 55-60%. Right Ventricle Right ventricle not well visualized, grossly normal. Right Atrium Normal right atrial size. Left Atrium Normal left atrial size. Mitral Valve Mild thickening/calcification of the anterior mitral valve leaflet. Moderate mitral annular calcification. Trace mitral regurgitation. Aortic Valve Trileaflet aortic valve. Diffuse thickening (sclerosis) of the aortic valve cusps without reduced excursion. No aortic stenosis. No aortic regurgitation. Tricuspid Valve Tricuspid valve not well visualized, grossly normal. Pulmonic Valve Pulmonic valve not well visualized. Pericardium No pericardial effusion. Great Vessels Aortic root and proximal ascending aorta not well visualized, grossly normal. CONCLUSIONS 1. This was a technically difficult and limited examination. 2. Mild to moderate aortic sclerosis is present with no valvular stenosis or insufficiency. 3. Mitral leaflet thickening and calcification is present with moderate anular calcification and minimal mitral insufficiency. 4. There is no pericardial fluid present. 5. The left ventricular chamber size and ejection fraction are normal. 6. The right heart structures are grossly normal. The RV systolic pressure could not be assessed on this examination. Lei Lisa M.D. (Electronically Signed) Final Date: 30 September 2017 06:58 MEASUREMENTS (Male / Female) Normal Values 2D ECHO LV Diastolic Diameter PLAX 4.3 cm 4.2 - 5.9 / 3.9 - 5.3 cm LV Systolic Diameter PLAX 2.8 cm 2.1 - 4.0 cm LV Fractional Shortening PLAX 34.9 % 25 - 46 % LV Ejection Fraction 2D Teich 64.4 % IVS Diastolic Thickness 1.0 cm LVPW Diastolic Thickness 1.0 cm LV Relative Wall Thickness 0.5 RV Internal Dim ED PLAX 2.2 cm 1.9 - 3.8 cm LVOT Diameter 2.1 cm Aortic Root Diameter 3.2 cm LA Systolic Diameter LX 3.1 cm 3.0 - 4.0 / 2.7 - 3.8 cm LA Volume 17.0 cm 18 - 58 / 22 - 52 cm DOPPLER AV Peak Velocity 115.0 cm/s AV Peak Gradient 5.3 mmHg AV Mean Velocity 79.6 cm/s AV Mean Gradient 3.0 mmHg AV Velocity Time Integral 24.4 cm LVOT Peak Velocity 76.9 cm/s LVOT Peak Gradient 2.4 mmHg LVOT Mean Velocity 55.3 cm/s LVOT Mean Gradient 1.0 mmHg LVOT Velocity Time Integral 16.0 cm LVOT Stroke Volume 55.4 cm AV Area Cont Eq vti 2.3 cm AV Area Cont Eq pk 2.3 cm MV Peak Velocity 123.0 cm/s MV Peak Gradient 6.1 mmHg MV Mean Velocity 69.4 cm/s MV Mean Gradient 2.0 mmHg Mitral E Point Velocity 82.4 cm/s Mitral A Point Velocity 98.7 cm/s Mitral E to A Ratio 0.8 MV PHT Velocity 94.1 cm/s MV Deceleration Cannon 360.0 cm/s MV Pressure Half Time 78.4 ms MV Area PHT 2.8 cm MV Deceleration Time 330.0 ms TR Peak Velocity 118.0 cm/s TR Peak Gradient 5.6 mmHg Right Atrial Pressure 5.0 mmHg Pulmonary Artery Systolic Pressure 10.6 mmHg Right Ventricular Systolic Pressure 10.6 mmHg PV Peak Velocity 116.0 cm/s PV Peak Gradient 5.4 mmHg PV Mean Velocity 69.7 cm/s PV Mean Gradient 2.0 mmHg PV Velocity Time Integral 21.8 cm LV E' Lateral Velocity 12.1 cm/s Mitral E to LV E' Lateral Ratio 6.8 LV E' Septal Velocity 6.2 cm/s Mitral E to LV E' Septal Ratio 13.2
--- NOTE | 2017-09-30 07:09 | PN- Housestaff ---
DavidGenovonnie 09/30/17 0703: Subjective Follow-up For: Fall Subjective: No acute events overnight, afebrile. Patient has no complaint of, is aware that he is going in for surgery patient is stating today that he had hurt his arm left arm, cannot recall he hurt it, refuses to straighten arm. Denies fever, night sweats, chills. Review of Systems Constitutional: Reports: see HPI. Objective Last 24 Hrs of Vital Signs/I&O Vital Signs Date Time Temp Pulse Resp B/P B/P Pulse O2 O2 Flow FiO2 Mean Ox Delivery Rate 09/29 2300 97.8 76 18 156/64 97 Room Air 09/29 1445 98.0 78 20 140/78 97 Room Air 09/29 1419 Room Air Room Air 09/29 1010 72 140/76 09/29 1009 72 140/76 09/29 0800 Room Air Intake & Output 09/30 0800 09/30 0000 09/29 1600 Intake Total 600 60 435 Output Total Balance 600 60 435 Intake, IV 600 10 75 Intake, Oral 50 360 Number 0 Bowel Movements Physical Exam General Appearance: Alert, Cooperative Skin: Facial laceration on left cheek, covered with steri-strips, left elbow covered in dressing, no discharge appreciated HEENT: Atraumatic, EOMI Cardiovascular: Regular Rate, Normal S1, Normal S2 Lungs: Clear to Auscultation, Normal Air Movement Abdomen: Normal Bowel Sounds, Soft, No Tenderness Assessment/Plan Assessment: Mr. Schwartz is a 81 year-old gentleman with past medical history significant for Alzheimer's disease, hyperlipidemia, iron deficiency anemia, gout, hypertension, major depressive disorder, type 2 diabetes, osteoarthritis, right bundle branch block who was brought to the hospital from [facility] ([facility]) after a mechanical fall with laceration to his Left cheek, and subsequent imaging showed fracture of left femoral neck. Problem List: 1. Fall 2. Left. Femoral neck fracture 3. Alzhemeir's dementia 4. Hypertension 5. Hyperlipidemia #Fall: Maxillofacial CT negative for facial bone fractures, CT Cervical spine is negative for acute intracranial injury, no acute injury to the cervical spine Plan: - Will consult PT following surgery #Left Femoral neck fracture- 2/2 fall. Pelvic X-ray on 09/28/17 shows left femoral neck fracture, suspicious for non-displaced left pelvic fracture. Pelvic CT on 09/28/17 positive for Acute mildly displaced and angulated fracture through the left femoral neck. Plan: - scheduled for tara arthroplasty on 09/30/17 @ 1300 - pain control - resume regular diet post surgery 2. RBBB: plan - unchanged from previously, per cardio - cleared for surgery by cardiology, input is highly appreciated 3. Alzheimer's dementia: plan: - Memantine 10mg BID - Donepezil 10mg 4. Hypertension plan: - Metoprolol 25mg 5. Hyperlipidemia plan: - Atorvastatin 10mg Problem List: 1. Fracture of femoral neck, left Pain Ratin Pain Location: unable to verbalize Pain Goal: Remain pain free Pain Plan: Roxicodone Tomorrow's Labs & Rationales: CBC, BEP Tiny CHASE,Maksim 09/30/17 1730: Attending MD Review Statement Attending Statement Attending MD Statement: examined this patient, discuss w/resident/PA/DEPUTY SHERIFF/INVESTIGATOR, agreed w/resident/PA/DEPUTY SHERIFF/INVESTIGATOR, reviewed EMR data (avail), discussed with nursing, reviewed images, amended to note Attending Assessment/Plan: The patient was seen by internet researcher in morning and by me after arrival on floor post PACU/OR. At time of my exam he was very lethargic, but arousable. Received 1 unit PRBC's. As per nursing, urine appears cloudy. Will check U/A C&S, IV fluids at present. May need some wrist restraints until mental status improves. Resident to check later this evening.
--- NOTE | 2017-09-30 14:40 | Operative Report ---
Operative/Inv Procedure Report Surgery Date: 09/30/17 Name of Procedure: Left hip noncemented hemiarthroplasty. Pre-Operative Diagnosis: Left hip displaced femoral neck fracture. Post-Operative Diagnosis: Same. Estimated Blood Loss: 50ml to 100ml Surgeon/Tub Puller: Bear Gasca MD/Jaison Saleh PA-C Anesthesia: general endotracheal tube Monitors: EKG/blood pressure/oxygen saturation. IV Fluids: 700 cc crystalloid +1 unit packed red blood cells. Implants: 1) Lonny Accolade H fracture size 4 femoral stem. 2) -4 mm neck adaptor 3) 50 mm O.D. endo-head component. Urine Output: 30 cc. Drains: None. Specimens: Resected portions of proximal femoral bone and cartilage and soft tissue sent to pathology for histopathological analysis and documentation. Microbiology: None. Tourniquet: None. Complications: None known. Condition: Stable. Operative Indication: The patient is a 81-year-old male half-way resident with dementia who sustained an unwitnessed fall at the half-way resulting in a left hip fracture. The patient was admitted through the [facility] emergency room and evaluated with respect to the unwitnessed fall. From an orthopedic standpoint we did recommend surgical intervention with left hip hemiarthroplasty. While the patient was being optimized medically the patient's who is his power of contract attorney was contacted and we did discuss the risks and benefits and expected outcomes of nonoperative management of the fracture which was clearly discouraged. We did also discuss the same with respect to surgical intervention with attempted repair of the femoral neck fracture which was also discouraged. Lastly, we did discuss the same with respect to surgical intervention with left hip hemiarthroplasty. After discussion of the options and answering all questions the patient's /power of contract attorney did give verbal witnessed consent for left hip hemiarthroplasty surgery. Operative/Procedure Note Note: DOS: 09/30/2017. Preoperative Diagnosis: Left hip displaced femoral neck fracture. Postoperative Diagnosis: Same. Surgeon: MD Campos. Tub Puller: DELONTE Saleh. Findings: As per preop. Anesthesia: General endotracheal. Monitors: EKG/blood pressure/oxygen saturation. IVF: 700 cc crystalloid +1 unit packed red blood cells. Implants: 1) Lonny Accolade H fracture size 4 femoral stem. 2) -4 mm neck adaptor 3) 50 mm O.D. endo-head component. EBL: 100 cc. Urine Output: 30 cc. Specimens: Resected portions of femoral head and neck and surrounding soft tissue sent to pathology for documentation and histopathological analysis. Drains: None. Tourniquet: None. Complications: None known. Disposition: PACU. Procedure: The patient was brought to the operating room on their regular hospital bed. Once in the operating room general endotracheal anesthesia was induced by the anesthesiologist. A dose of IV antibiotics was given for infection prophylaxis. The patient was then transferred to the OR table initially in the supine position and then repositioned into the right lateral decubitus position with the right side down and the left side up. The patient was secured in the lateral decubitus position with the pegboard lateral hip positioning system. All bony prominences were well padded including placement of an axillary roll under the dependent right axilla. A pillow and additional padding were placed underneath the dependent right lower extremity in particular to pad the region of the fibular neck and peroneal nerve. An additional pillow was placed between the legs to relieve pressure on the medial knees and legs with the patient in the lateral decubitus position. The left lower extremity was then prepped and draped in the usual sterile fashion. The patient's skin was marked for a curved longitudinal skin incision centered about the greater trochanter for a posterior approach to the left hip joint. The skin incision was created with a #10 scalpel blade. Sharp dissection continued down through the skin and subcutaneous tissues. Hemostasis was achieved with a combination of manual pressure and electrocautery. Retractors were placed progressively deeper into the wound as needed. The deepest layer of the subcutaneous fat was elevated off of the underlying fascia rey and fascia of the gluteus musculature with a combination of blunt dissection with fingers and lap pads and occasional use of a Duncan elevator. The fascial layer was divided directly over the flare of the greater trochanter with a scalpel blade. The division in the fascial layer was advanced distally and proximally in line with the skin incision using a curved Reyes scissor. Adhesions of the fascial layer to the underlying greater trochanteric bursa over the greater trochanter as well as to the underlying gluteal musculature proximally and fascia rey distally were freed up with a combination of blunt fingertip dissection and occasional use of Reyes scissors. Retractors were once again repositioned more deeply. The left lower extremity was then internally rotated to place the hip short external rotator muscles and tendons on stretch. A thin straight Hohmann retractor was placed under the gluteus medius tendon to retract the muscle belly and tendon anteriorly. This allowed for visualization of the piriformis tendon coming into its'piriformis fossa insertion site as well as the tendons of the hip short external rotators. The piriformis tendon was taken down from its insertion site at the performance fossa using electrocautery and then reflected posteriorly off of the underlying hip joint capsule. A #5 Ethibond suture was placed to tag the piriformis tendon for identification and subsequent posterior soft tissue repair after prosthesis placement. The hip short external rotators and the posterior hip joint capsule were taken down together using electrocautery from their insertion site at the posterolateral hip. The capsulotomy was extended proximally above the level of the superolateral acetabular rim and distally below the level of the lesser trochanter. The posterior capsule was then T'd to allow the capsular flaps to be tagged with additional #5 and then retracted with those sutures in hemostat clamps posteriorly. With the capsulotomy performed we did have visualization of the contents of the hip joint as well as the fracture of the femoral neck. The femoral head was freed up within the acetabular fossa and then extracted using a corkscrew and skid. The femoral head was then taken to the back table and templated for size using the cookie cutter templates. In this case the femoral head measured about 50 mm in diameter using the templates. We placed an anterior acetabular retractor over the anterior rim of the acetabulum to retract the proximal femur anteriorly for better visualization of the acetabulum. We next excised the pulvinar tissue within the depths of the acetabulum with electrocautery. We also used the electrocautery to stop bleeding associated with excision of the pulvinar tissue. We next placed femoral head sizing components into the acetabulum to check for fit of the trial within the acetabular socket. In this case we did try femoral head sizing components of 49 mm and 50 mm diameter. The 50 mm femoral head sizing component provided the best visual and tactile fit with good suction fit of the component within the acetabulum. We next turned our attention towards preparation of the proximal femur to accept a femoral stem component. A femoral neck elevator was placed under the femoral neck for protection of the deeper structures as well as to bring the proximal femur into better visualization. Loose bony fragments and sharp margins of the femoral neck fracture were removed using rongeurs. A combination of sharp dissection with a scalpel as well as dissection with the cutting mode of electrocautery were used to remove the soft tissue remnants on the undersurface of the gluteal musculature coming down to the lateral base of the femoral neck meeting up with the inner surface of the greater trochanter and thereby providing exposure of the lateral base of the neck. We next placed a flag cutting template over the femoral neck and aligned the long axis of the cutting template along the long axis of the femoral shaft and positioned the height of the neck cutting template to allow for resection of the femoral neck leaving a roughly 1 fingerbreadth of the neck remaining above the proximal aspect of the lesser trochanter. The femoral neck was then marked using electrocautery in line with the cutting margin of the neck cutting guide to emanuel the level of the neck resection. The reciprocating saw was then used to make the neck cut in line with the electrocautery marking made in the femoral neck. The resected bone from the femoral neck cut was removed and freed up from any surrounding soft tissue attachments and ultimately packed along with the femoral head which was already removed from the patient to be sent to pathology for histopathological evaluation of the bone tissue. We next used a box osteotome to sharply carve out the lateral base of the femoral neck and allow access to the proximal femoral shaft. A T-handled straight reamer was used manually as a canal finder to help orient us to the path of the medullary canal. The T- handled straight reamer was also used manually to try to excavate some bone along the inner margin of the greater trochanter to help with proper alignment and positioning for ultimate prosthesis placement. We next broached the proximal femur sequentially with the broaches for the Accolade HFX fracture stem until we were satisfied with the depth of seating of the final broach as well as the medial-lateral fill of the base of the neck with the final broach. We did use the broaches as rasps along the inner margin of the greater trochanter and lateral base of the femoral neck to try to make sure that the broach and subsequent femoral component would not be placed into the proximal femur in a varus alignment. In this case we began with a size 0 broach and worked our way up to a size 4 broach. Once the final broach was seated with good medial- lateral fill and provisional stability to rotation we proceeded to placement of trial neck and head components on the broach. We started with a standard neck adjustment sleeve and a 50 mm trial head component which were attached to the broach in standard fashion. The acetabulum was irrigated and evacuated and then the hip was reduced bringing the trial head into the acetabulum. We were satisfied with the visual fill of the 50 mm trial head within the acetabulum once again. Stability testing and range of motion testing were performed. The hip was clearly stable on longitudinal shuck testing. The hip was also clearly stable with flexion to 90 degrees with additional adduction of the hip and internal rotation of the hip. Leg lengths were checked and I felt that the left lower extremity was perhaps excessively lengthened with the standard neck component. This made extending the hip fully with terminal knee extension tight. I would estimate that the left lower extremity was perhaps 6 mm longer than the contralateral right lower extremity. We did therefore dislocate the hip and remove the trial neck and head and switch over to a -4 mm neck adapter. The trial head component was placed onto the -4 mm neck adapter and the hip was once again reduced and put through range of motion and stability testing. The hip did still feel stable throughout the tested range of motion. Longitudinal shuck testing was also good. The hip with knee was able to be extended fully. It did still appear that the left lower extremity was lengthened by several millimeters compared to the other side. That being said, I did elect to leave the left lower extremity slightly lengthened in order to tighten up the soft tissue envelope to provide increased stability to the left hip prosthesis given the patient's dementia and anticipated inability to follow total hip precautions postoperatively. The hip was redislocated and the trial components were all removed. A pulsatile lavage was used to irrigate the proximal femur to remove loose bone and debris. We next impacted a size 4 Accolade HFX hip fracture stem into the proximal femur until it was seated at the appropriate depth of impaction with good medial-lateral interference fit of the femoral component within the femoral neck. We once again placed a trial -4 mm neck adjustment sleeve component with a trial 50 mm head component onto the trunnion of the femoral component. The hip was once again reduced making sure that nothing was within the acetabulum and that the posterior capsular tissue was not invaginated into the acetabulum with reduction of the hip. We placed the hip through range of motion and stability testing once again and we were very satisfied with motion and stability. Leg lengths were checked once again and were similar to that achieved with the femoral broach component. The hip was dislocated once again and the trial neck adjustment sleeve and trial head component were removed. The trunnion of the femoral component was cleaned and a true -4 mm neck adjustment sleeve with a 50 mm outer diameter Endo head were impacted onto the trunnion with the impactor. Interference fit and fixation of the neck sleeve and Endo head components to the trunnion were checked and found to be satisfactory. We next irrigated out the acetabulum extensively with the pulsatile lavage system. We also irrigated the hip joint and the surrounding soft tissues as well with the pulsatile lavage. The hip was reduced once again now with all final components in place and then once again placed through range of motion and stability testing which were still felt to be very acceptable and no different from that with the trial components in place. Our attention was now turned to closure. A posterior soft tissue-capsular repair was performed by drilling 2 drill holes into the greater trochanter with a 2 mm drill bit. The #5 Ethibond tagging sutures placed during the exposure and posterior approach to the hip were divided into 2 sets (proximal and distal) and then shuttled through the appropriate drill holes in the greater trochanter using a [employer] suture passer. The hip was externally rotated and then the sets of Ethibond sutures were tied over the bone bridge accomplishing a very nice soft tissue capsular repair back to bone. Additional #2 cottony Dacron sutures were placed in interrupted simple fashion to repair the T component of the capsulotomy to finish the posterior capsular repair. All tissues were irrigated once again with the pulsatile lavage system. The fascia rey was then repaired using a #2 cottony Dacron placed in a running-locked fashion and then tied distally. The fascia over the gluteal musculature was repaired using interrupted #1 Vicryl sutures placed in simple fashion. The subcutaneous tissues were closed in layers with #1 Vicryl suture placed in interrupted buried fashion in the deep subcutaneous tissues followed by #2 Vicryl placed also in interrupted buried fashion in the more superficial subcutaneous tissues. The skin margins were then approximated using a skin stapler. The wound was washed and dried. Adaptic dressing was placed over the staple line followed by sterile gauze dressings and abdominal pannus which were held in place with paper tape. The left lower extremity was then abducted with slight external rotation to maintain hip stability of the reduced hip and then the dressings were taken down. The patient was turned into the supine position, again while maintaining control of the left lower extremity. Once the patient was in the supine position a hip abduction pillow was placed between the legs. The patient was awakened from general anesthesia and then transferred to the hospital bed and brought to the recovery room in stable condition having tolerated the procedure well. Findings: As per preop. Discharge Disposition: PACU
--- NOTE | 2017-09-30 15:00 | RADIOLOGY REPORT ---
EXAMINATION: XR HIP, LEFT CLINICAL INFORMATION: Left hip replacement. COMPARISON: None TECHNIQUE: An AP view of the left hip. FINDINGS: A left hip prosthesis has been placed. There is expected subcutaneous gas overlying the left femur. There are no acute fractures. IMPRESSION: Expected appearance status post left hip replacement.
--- NOTE | 2017-09-30 16:26 | PN- Cardiology ---
Subjective Subjective: Stable, awaiting OR today Objective Vital Signs and I&Os Vital Signs Date Time Temp Pulse Resp B/P B/P Pulse O2 O2 Flow FiO2 Mean Ox Delivery Rate 09/30 1008 76 126/84 09/30 1008 76 126/84 09/30 0600 98.3 76 20 134/75 96 Room Air 09/29 2300 97.8 76 18 156/64 97 Room Air Intake & Output 09/30 1600 09/30 0800 09/30 0000 09/29 1600 09/29 0800 09/29 0000 Intake Total 600 60 435 735 100 Output Total Balance 600 60 435 735 100 Intake, IV 600 10 75 675 100 Intake, Oral 50 360 60 Number 0 0 Bowel Movements Patient 146 lb Weight Weight Bed scale Measurement Method Current Medications: Current Medications Sig/Jyoti Start time Last Medication Dose Route Stop Time Status Admin Acetaminophen 650 MG Q6-PRN PRN 09/29 0015 DC 09/29 PO 2126 Amlodipine Besylate 5 MG DAILY 09/29 0900 DC 09/30 PO 1008 Atorvastatin Calcium 10 MG 1700 09/29 1700 DC 09/29 PO 1743 Bisacodyl 10 MG DAILY NEEDED PRN 09/29 0215 DC OH Dextrose/Sodium 1,000 ML Q13H 09/30 0000 DC 09/29 Chloride IV 2339 Docusate Sodium 100 MG DAILY NEEDED PRN 09/30 1430 AC PO Donepezil HCl 10 MG QPM 09/29 2100 DC 09/29 PO 2126 Escitalopram Oxalate 20 MG DAILY 09/29 0900 DC 09/30 PO 1002 Ferrous Sulfate 325 MG BID 09/29 0900 DC 09/30 PO 1008 Heparin Sodium 5,000 UNIT Q8 09/29 0600 DC 09/30 (Porcine) SC 0602 Insulin Aspart 0 TIDAC 09/29 0800 DC 09/29 SC 09/29 2355 1333 Insulin Human Regular 0 Q6 09/29 2359 DC 09/30 SC 1148 Magnesium Hydroxide 30 ML DAILY NEEDED PRN 09/29 0230 DC PO Memantine 10 MG BID 09/29 0900 DC 09/30 PO 1007 Metoprolol Succinate 25 MG DAILY 09/29 0900 DC 09/30 PO 1008 Morphine Sulfate 2 MG Q3P PRN 09/30 1430 AC IV Multivitamins 1 TAB DAILY 09/29 0900 DC 09/30 Therapeutic PO 1008 Ondansetron HCl 4 MG Q6P PRN 09/30 1430 AC IV Oxycodone/ 1 TAB Q4P PRN 09/30 1430 AC Acetaminophen PO Oxycodone/ 2 TAB Q4P PRN 09/30 1430 AC Acetaminophen PO Senna/Docusate Sodium 2 TAB AT BEDTIME NEED.. 09/30 1430 AC PO Sodium Chloride 1,000 ML .[id number] 09/30 1430 AC IV Sodium Phosphate 1 UNIT DAILY NEEDED PRN 09/29 0230 DC OH Vancomycin HCl 1,000 MG ONCE ONE 10/01 0000 AC Sodium Chloride 250 ML IV 10/01 0059 Warfarin Sodium 5 MG COUMADIN 1700 ONE 09/30 1700 AC PO 09/30 1701 Results Last 48 Hrs of Labs/Mics: Laboratory Tests 09/29/17 1102: Urine Color Cancelled, Urine Clarity Cancelled, Urine pH Cancelled, Ur Specific [place] Cancelled, Urine Protein Cancelled, Urine Ketones Cancelled, Urine Nitrite Cancelled, Urine Bilirubin Cancelled, Urine Urobilinogen Cancelled, Ur Leukocyte Esterase Cancelled, Ur Microscopic Cancelled, Urine Hemoglobin Cancelled, Urine Glucose Cancelled 09/29/17 0915: Anion Gap 11, Estimated GFR > 60, BUN/Creatinine Ratio 22.7, Total Bilirubin 0.5 , Direct Bilirubin 0, AST 19, ALT 25, Alkaline Phosphatase 87, Total Protein 6.1 L, Albumin 3.4 L, CBC w Diff NO MAN DIFF REQ, RBC 3.80 L, MCV 84.0, MCH 28.5, MCHC 33.9, RDW 15.7 H, MPV 8.5, Gran % 79.5 H, Lymphocytes % 11.3 L, Monocytes % 7.8, Eosinophils % 0.9, Basophils % 0.5, Absolute Granulocytes 6.4, Absolute Lymphocytes 0.9 L, Absolute Monocytes 0.6, Absolute Eosinophils 0.1, Absolute Basophils 0, Hepatitis A IgM Ab NONREACTIVE, Hep Bs Antigen NONREACTIVE , Hep B Core IgM Ab Conf NONREACTIVE, Hepatitis C Antibody NONREACTIVE 09/29/17 0610: Total Bilirubin Cancelled, Direct Bilirubin Cancelled, AST Cancelled, ALT Cancelled, Alkaline Phosphatase Cancelled, Total Protein Cancelled, Albumin Cancelled, Hepatitis A IgM Ab Cancelled, Hep Bs Antigen Cancelled, Hep B Core IgM Ab Conf Cancelled, Hepatitis C Antibody Cancelled Assessment/Plan Assessment/Plan Assessment: 1. Abnormal ECG / RBBB 2. Heart murmur 3. Left femoral neck fracture 4. Dementia 5. ELIAN 6. HTN 7. HLD Recommendations: - THe patient has an abnormal ECG with RBBB which appears unchanged from previously. HIs examination is otherwise essentially unremarkable and he has no known symptoms or cardiac issues. - In view of the available information and the type of surgery planned, I believe the patient to be stable for said surgery from a cardiac standpoint. I have discussed this with the patient's who understands the attendant risks of the surgery and agrees. - Please check a baseline echocardiogram for LV function, etc. - Continue regular meds including BBs Continue telemetry? No
[2017-09-30 16:30] VITALS: BP 122/58
--- NOTE | 2017-09-30 17:13 | PN- Orthopedic ---
Subjective Subjective: Post op check Stable post op Demented and unable to answer questions Awake, doesn't appear to be in any pain Objective Vital Signs and I&Os Vital Signs Date Time Temp Pulse Resp B/P B/P Pulse O2 O2 Flow FiO2 Mean Ox Delivery Rate 09/30 1008 76 126/84 09/30 1008 76 126/84 09/30 0600 98.3 76 20 134/75 96 Room Air 09/29 2300 97.8 76 18 156/64 97 Room Air Intake & Output 09/30 1600 09/30 0800 09/30 0000 09/29 1600 09/29 0800 09/29 0000 Intake Total 600 60 435 735 100 Output Total Balance 600 60 435 735 100 Intake, IV 600 10 75 675 100 Intake, Oral 50 360 60 Number 0 0 Bowel Movements Patient 146 lb Weight Weight Bed scale Measurement Method Physical Exam: General; vss, afebrile LLE: warm, no edema, no calf tenderness, moves without difficulty although does not follow directions Wd: dressed, dry, ice pack in place Assessment/Plan Assessment/Plan 81yo demented male with numerous medical problems now s/p L hip tara pain management PT - wbat coumadin for dvt ppx all pre op medications restarted ada diet pt lives at [facility] Will plan to change dressing on pod 2 or earlier if needed all other plans per medical team
[2017-09-30 20:30] VITALS: BP 140/70
[2017-10-01 00:30] VITALS: BP 138/72
[2017-10-01 04:10] VITALS: BP 130/70
[2017-10-01 06:53] VITALS: BP 130/60
--- NOTE | 2017-10-01 06:54 | PN- Orthopedic ---
Subjective Subjective: POD#1 S/P LEFT HEMIARTHROPLASTY UNDERLYING DEMENTIA OCCASIONALLY OPENING EYES TO COMMAND NO VISUAL SIGNS OF DISTRESS Objective Vital Signs and I&Os Vital Signs Date Time Temp Pulse Resp B/P B/P Pulse O2 O2 Flow FiO2 Mean Ox Delivery Rate 10/01 0410 99.0 71 18 130/70 99 10/01 0030 98.0 70 18 138/72 100 Nasal 2.0L Cannula 10/01 0000 100 Nasal 2.0L Cannula 09/30 2030 97.4 70 18 140/70 100 Nasal 2.0L Cannula 09/30 1630 98.0 83 18 122/58 94 Nasal 2.0L Cannula 09/30 1600 94 Nasal 2.0L Cannula 09/30 1008 76 126/84 09/30 1008 76 126/84 Intake & Output 10/01 0800 10/01 0000 09/30 1600 09/30 0800 09/30 0000 09/29 1600 Intake Total 925 525 150 600 60 435 Output Total 260 100 100 Balance 665 425 50 600 60 435 Intake, IV 850 525 150 600 10 75 Intake, Oral 75 50 360 Number 0 Bowel Movements Output, Urine 260 100 100 Physical Exam: LEG LENGTHS EQUAL LEFT HIP DRSG DRY LEFT LEG WARM DISTAL PULSES INTACT THIGH SOFT ABDUCTOR POLLOW IN PLACE Assessment/Plan Assessment/Plan ORTHOPEDICALLY STABLE PLAN OOB TO CHAIR/AMBUALTE WITH PT WBAT LEFT LE POSTERIOR HIP PRECAUTIONS WILL NEED SNF UPON D/C FOR CONT PT COUMADIN FOR DVT PROPHYLAXIS Core Measures Venous Thromboembolism VTE Risk Factors Age>40 No Mechanical VTE Prophylaxis d/t Medical Contraindication No VTE Pharm Prophylaxis d/t NA PharmProphylax ordered
--- NOTE | 2017-10-01 07:09 | Discharge Summary ---
Visit Information Visit Dates Admission Date: 09/28/17 Discharge Date: 10/04/17 Hospital Course Course Attending Physician: Maksim Franks MD Primary Care Physician: Lio CHASE,Leonie Story Hospital Course: Mr. Schwartz is a 81 year-old gentleman with past medical history significant for Alzheimer's disease, hyperlipidemia, iron deficiency anemia, gout, hypertension, major depressive disorder, type 2 diabetes, osteoarthritis, right bundle branch block who was brought to the hospital from [facility] ([facility]) after a mechanical fall with laceration to his Left cheek found to have a femoral neck fracture now status post left hip noncemented hemiarthroplasty. He was admitted to general medicine and treated for the following problems: 1. Femoral Neck fracture 2. Advanced Dementia 3. RBBB on EKG 4. ELIAN 5. Urinary tract infection 6. Incidental 2 mm nodule in right middle lobe #Femoral Neck fracture: The patient was admitted to the general medicine floor after mechanical fall found to have a left femoral neck fracture on CT imaging and hip x-ray. Due to history of right bundle branch block, cardiology was consulted for medical clearance. TTE showed mild to moderate aortic sclerosis with no valvular stenosis and normal EF. He underwent left hip hemiarthroplasty and tolerated the procedure well. He did receive 1 unit of packed red blood cell postoperatively. His postoperative course was complicated by urinary tract infection growing E. coli resistant to ciprofloxacin. He was initially treated with ceftriaxone and will be sent out on a total of 7 days of amoxicillin. The patient was also started on warfarin for postoperative DVT prophylaxis. His INR was supratherapeutic however after loading dose so this will need to be followed. PT has evaluated the patient is cleared the patient for discharge to short-term rehab. #ELIAN: Patient presented with elevated creatinine in the setting of hypovolemia that improved with IV fluid hydration. #Incidental 2 mm nodule in right middle lobe: CT imaging revealed a 2 mm nodule in the right middle lobe. He will follow-up with primary care for this. #Chronic medical problems: We continued other home medications. Allergies: Coded Allergies: No Known Allergies (05/18/17) Disposition Summary Disposition Principal Diagnosis: 1. Femoral Neck fracture Additional Diagnosis: 2. Advanced Dementia 3. RBBB on EKG 4. ELIAN 5. Urinary tract infection 6. Incidental 2 mm nodule in right middle lobe Discharge Disposition: SNF Discharge Instructions General Discharge Information Code Status: Do Not Resucitate/Intubat Patient's Diet: Diabetic diet Patient's Activity: As tolerated Follow-Up Instructions/Appts: Please take all medications as directed. Please follow-up with primary care and orthopedic surgery. Medications at Discharge Discharge Medications: Continue taking these medications: Aspirin (Aspirin*) 81 MG TAB.CHEW 1 Tablet ORAL DAILY Comments: NOT GIVEN IN HOSPITAL Diphenoxylate HCl/Atropine (Lomotil 2.5-0.025 MG Tablet) 2.5 MG-0.025 MG TABLET 1 Tablet ORAL DAILY NEEDED Comments: NOT GIVEN Escitalopram Oxalate (Lexapro) 20 MG TABLET 1 Tablet ORAL DAILY Comments: Last Taken:10/04/17 Time:8:53 AM Metoprolol Succ XL (Toprol XL) 25 MG TAB 1 Tablet ORAL DAILY Comments: Last Taken:10/04/17 Time:8:53 AM Lovastatin (Lovastatin) 40 MG TABLET 1 Tablet ORAL 1800 Instructions: with food Comments: Last Taken:10/03/17 Time:5 PM LIPITOR GIVEN IN HOSP Amlodipine Besylate (Amlodipine Besylate) 10 MG TABLET 0.5 Tablet ORAL DAILY Comments: Last Taken:10/04/17 Time:8:50 AM Psyllium Husk/Aspartame (Iris-Mucil Powder) 3.4 GRAM/5.8 GRAM POWDER 1 Teaspoonful ORAL DAILY Comments: NOT GIVEN Lactobacillus Acidophilus (Acidophilus) 1 EACH CAPSULE 1 Capsule ORAL DAILY Comments: NOT GIVEN Memantine HCl (Namenda XR) 28 MG CAP.SPR.24 1 Capsule ORAL DAILY Comments: Last Taken:10/04/17 Time:8:53 AM Multivitamin (One Daily Multivitamin) 1 EACH TABLET 1 Tablet ORAL DAILY Comments: Last Taken:10/04/17 Time:8:53 AM Donepezil HCl (Aricept) 10 MG TABLET 1 Tablet ORAL Every night Comments: Last Taken:10/03/17 Time:9:30 PM Ferrous Sulfate (Ferrous Sulfate) 325 MG (65 MG IRON) TABLET 1 Tablet ORAL TWICE DAILY Comments: Last Taken:10/04/17 Time:9:06 AM Acetaminophen (Tylenol) 325 MG TABLET 2 Tablet ORAL EVERY 4 HOURS NEEDED as needed for FEVER > 101 Instructions: OR GENERAL DISCOMFORT Magnesium Hydroxide (Milk Of Magnesia) 400 MG/5 ML ORAL.SUSP 5 Milliliters ORAL Q3DPRN Comments: NOT GIVEN IN HOSPITAL Bisacodyl (Dulcolax) 10 MG SUPP.RECT 1 Suppository RECTAL DAILY NEEDED Instructions: USE IF MOM INEFFECTIVE Comments: NOT GIVEN IN HOSPITAL Na Phos,M-B/Na Phos,Di-Ba (Fleet Enema) 19 GRAM-7 GRAM/118 ML ENEMA 1 Enema RECTAL DAILY NEEDED Instructions: USE IF DULCOLAX INEFFECTIVE Comments: NOT GIVEN IN HOSPITAL Start taking the following new medications: Amoxicillin (Amoxicillin) 250 MG/5 ML SUSP.RECON 875 Milligram ORAL TWICE DAILY Qty = 12 No Refills Comments: Last Taken:10/04/17 Time:9:54 AM Warfarin Sodium (Coumadin) 2 MG TABLET 1 Tablet ORAL DAILY Qty = 30 No Refills Instructions: Please titrate to INR of 2-3 with daily INR checks Comments: 10/04/17 INR 4.28. HOLD COUMADIN ON 10/04/17. RECHECK INR ON 10/05/[address] KERN. Copies To: Lio CHASE,Leonie Story; Maria L CHASE,Kevin Franco; Campos CHASE,Bear Luna MD Review Statement Documenting Attending: Maksim Franks MD Other Findings: The patient was seen and discussed with house staff. Agree with the summary of care and plan upon discharge. Will follow INR closely as OP and complete course of po antibiotics.
[2017-10-01 07:55] LABS: ABSOLUTE BASOPHIL COUNT 0 /CUMM (0.0-0.2); ABSOLUTE EOSINOPHIL COUNT 0.1 /CUMM (0.0-0.7); ABSOLUTE GRANULOCYTE CT 5.7 /CUMM (1.4-6.5); ABSOLUTE LYMPH COUNT 0.9 /CUMM (1.2-3.4); ABSOLUTE MONOCYTE COUNT 0.9 /CUMM (0.10-0.60); BASOPHIL % 0.5 % (0.0-2.0); EOSINOPHIL % 1.5 % (0-5); GRANULOCYTE % 74.2 % (42.2-75.2); HEMATOCRIT 28.5 % (42-52); MEAN CORPUSCULAR HGB 28.4 PG (27.0-31.0); MEAN CORPUSCULAR VOLUME 85.8 FL (80.0-94.0); MEAN PLATELET VOLUME 9.3 FL (7.4-10.4); PLATELET COUNT 158 /CUMM (130-400); RBC DISTRIBUTION WIDTH 15.6 % (11.5-14.5); RED BLOOD CELL CT 3.32 /CUMM (4.70-6.10); WHITE BLOOD CELL COUNT 7.6 /CUMM (4.8-10.8)
--- NOTE | 2017-10-01 09:33 | PN- Housestaff ---
See Addendum Subjective Follow-up For: Femoral fracture Subjective: No acute areas overnight, afebrile. Return from surgery yesterday, patient is insensate of mind requires redirection multiple times, unable to adequately answer questions. Unaware of where he is, unaware of who the president is, unaware of the year. Denies pain anywhere in the body, pain with urination, frequency, hesitancy. Review of Systems Constitutional: Reports: see HPI. Objective Last 24 Hrs of Vital Signs/I&O Vital Signs Date Time Temp Pulse Resp B/P B/P Pulse O2 O2 Flow FiO2 Mean Ox Delivery Rate 10/01 1415 98.1 85 20 130/60 94 Room Air 10/01 1112 Room Air Room Air 10/01 1004 80 130/70 10/01 1001 80 130/70 10/01 0653 98.9 78 18 130/60 96 10/01 0530 18 96 Room Air 10/01 0410 99.0 71 18 130/70 99 10/01 0030 98.0 70 18 138/72 100 Nasal 2.0L Cannula 10/01 0000 100 Nasal 2.0L Cannula 09/30 2030 97.4 70 18 140/70 100 Nasal 2.0L Cannula 09/30 1630 98.0 83 18 122/58 94 Nasal 2.0L Cannula 09/30 1600 94 Nasal 2.0L Cannula Intake & Output 10/01 1600 10/01 0800 10/01 0000 Intake Total 1080 925 525 Output Total 250 260 100 Balance 830 665 425 Intake, IV 600 850 525 Intake, Oral 480 75 Number 3 Bowel Movements Output, Urine 250 260 100 Patient 146 lb Weight Physical Exam General Appearance: Alert, Not oriented to time, person or place Skin: No Rashes HEENT: Atraumatic, EOMI Cardiovascular: Regular Rate, Normal S1, Normal S2 Lungs: Clear to Auscultation, Normal Air Movement Abdomen: Normal Bowel Sounds, Soft, No Tenderness Extremities: No Cyanosis, No Edema, Normal Pulses Reproductive (MALE) Normal male genitalia (Cathether in place) Assessment/Plan Assessment: Mr. Schwartz is a 81 year-old gentleman with past medical history significant for Alzheimer's disease, hyperlipidemia, iron deficiency anemia, gout, hypertension, major depressive disorder, type 2 diabetes, osteoarthritis, right bundle branch block who was brought to the hospital from [facility] ([facility]) after a mechanical fall with laceration to his Left cheek, and subsequent imaging showed fracture of left femoral neck. Problem List: 1. Fall 2. Left. Femoral neck fracture 3. Alzhemeir's dementia 4. Hypertension 5. Hyperlipidemia 6. Acute blood loss anemia #Acute Blood loss anemia: Postop H&H 9.4/28.5 status post 1 PRBC, H&H on admission 10.9/32.5. Asymptomatic plan -continue to monitor #Fall: Maxillofacial CT negative for facial bone fractures, CT Cervical spine is negative for acute intracranial injury, no acute injury to the cervical spine Plan: - PT recommending STR #Left Femoral neck fracture- 2/ fall. Pelvic X-ray on 09/28/17 shows left femoral neck fracture, suspicious for non-displaced left pelvic fracture. Pelvic CT on 09/28/17 positive for Acute mildly displaced and angulated fracture through the left femoral neck. Plan: - underwent Left hip noncemented hemiarthroplasty POD #0 - pain control - resume regular diet post surgery # RBBB: plan - unchanged from previously, per cardio - cleared for surgery by cardiology, input is highly appreciated # Alzheimer's dementia: plan: - Memantine 10mg BID - Donepezil 10mg # Hypertension plan: - Metoprolol 25mg # Hyperlipidemia plan: - Atorvastatin 10mg DVT PPx: Heparin + Warfarin transition Diet- Heart healthy Code Status: DNR Problem List: 1. Fracture of femoral neck, left Pain Ratin Pain Location: unable to verbalize Pain Goal: Remain pain free Pain Plan: Oxycodone, Tylenol Tomorrow's Labs & Rationales: cbc
[2017-10-01 14:15] VITALS: BP 130/60
--- NOTE | 2017-10-01 15:12 | PN- Cardiology ---
Subjective Subjective: Stable post procedure with no new cardiac issues or problems. Objective Vital Signs and I&Os Vital Signs Date Time Temp Pulse Resp B/P B/P Pulse O2 O2 Flow FiO2 Mean Ox Delivery Rate 10/01 1415 98.1 85 20 130/60 94 Room Air 10/01 1112 Room Air Room Air 10/01 1004 80 130/70 10/01 1001 80 130/70 10/01 0653 98.9 78 18 130/60 96 10/01 0530 18 96 Room Air 10/01 0410 99.0 71 18 130/70 99 10/01 0030 98.0 70 18 138/72 100 Nasal 2.0L Cannula 10/01 0000 100 Nasal 2.0L Cannula 09/30 2030 97.4 70 18 140/70 100 Nasal 2.0L Cannula 09/30 1630 98.0 83 18 122/58 94 Nasal 2.0L Cannula 09/30 1600 94 Nasal 2.0L Cannula Intake & Output 10/01 1600 10/01 0800 10/01 0000 09/30 1600 09/30 0800 09/30 0000 Intake Total 1080 925 525 150 600 60 Output Total 250 260 100 100 Balance 830 665 425 50 600 60 Intake, IV 600 850 525 150 600 10 Intake, Oral 480 75 50 Number 3 Bowel Movements Output, Urine 250 260 100 100 Patient 146 lb Weight Physical Exam: General Appearance: well developed/nourished, alert, awake Head: normal HEENT: Normal Neck: supple, JVP normal, carotid upstrokes normal bilaterally, no masses or thyromegaly Respiratory: chest non-tender, clear to auscultation and percussion bilaterally Cardiovascular: regular rate/rhythm, normal S1, S2, 1/6 systolic murmur Abdomen: normal bowel sounds, soft, non-tender Extremities: normal inspection, no edema Vascular: Pulses are 2+ and equal bilaterally Neurologic: Grossly normal/nonfocal Current Medications: Current Medications Sig/Jyoti Start time Last Medication Dose Route Stop Time Status Admin Acetaminophen 1,000 MG Q8 10/01 1400 AC 10/01 IV 1435 Acetaminophen 650 MG Q6-PRN PRN 09/30 1715 DC PO Amlodipine Besylate 5 MG DAILY 10/01 0900 AC 10/01 PO 1001 Atorvastatin Calcium 10 MG 1700 10/01 1700 AC PO Bisacodyl 10 MG DAILY NEEDED PRN 09/30 1715 AC SD Ceftriaxone Sodium 1,000 MG DAILY 10/01 0930 AC 10/01 IV 1113 Docusate Sodium 100 MG BID 09/30 2100 AC 10/01 PO 1003 Docusate Sodium 100 MG DAILY NEEDED PRN 09/30 1430 DC PO Donepezil HCl 10 MG QPM 09/30 2100 AC 09/30 PO 2121 Escitalopram Oxalate 20 MG DAILY 10/01 0900 AC 10/01 PO 1001 Ferrous Sulfate 325 MG BID 09/30 2100 AC 10/01 PO 1001 Heparin Sodium 5,000 UNIT Q8 09/30 2200 AC 10/01 (Porcine) SC 1435 Insulin Aspart 0 TIDAC 10/01 0800 AC 10/01 SC 1356 Insulin Human Regular 0 Q6 09/30 1800 DC 09/30 SC 2348 Magnesium Hydroxide 30 ML DAILY NEEDED PRN 09/30 1715 AC PO Memantine 10 MG BID 09/30 2100 AC 10/01 PO 1001 Metoprolol Succinate 25 MG DAILY 10/01 0900 AC 10/01 PO 1004 Morphine Sulfate 2 MG Q3P PRN 09/30 1430 DC IV Multivitamins 1 TAB DAILY 10/01 0900 AC 10/01 Therapeutic PO 1003 Ondansetron HCl 4 MG Q6P PRN 09/30 1430 AC IV Oxycodone HCl 5 MG Q6P PRN 10/01 0715 AC PO Oxycodone/ 1 TAB Q4P PRN 09/30 1430 DC Acetaminophen PO Oxycodone/ 2 TAB Q4P PRN 09/30 1430 DC 09/30 Acetaminophen PO 1649 Patient Medication 1 ED ONE ONE 09/30 1745 DC Teaching ED 09/30 1746 Senna/Docusate Sodium 2 TAB DAILY 10/01 0900 AC 10/01 PO 1000 Senna/Docusate Sodium 2 TAB AT BEDTIME NEED.. 09/30 1430 DC PO Sodium Chloride 1,000 ML .[id number] 09/30 1430 AC 10/01 IV 0450 Sodium Phosphate 1 UNIT DAILY NEEDED PRN 09/30 1715 AC SD Vancomycin HCl 1,000 MG ONCE ONE 10/01 0000 DC 09/30 Sodium Chloride 250 ML IV 10/01 0059 2354 Warfarin Sodium 5 MG COUMADIN 1700 10/01 1700 AC PO 10/01 2359 Warfarin Sodium 5 MG COUMADIN 1700 ONE 09/30 1700 DC 09/30 PO 09/30 1700 170 Results Last 48 Hrs of Labs/Mics: Laboratory Tests 10/01/17 0603: Anion Gap 9, Estimated GFR > 60, BUN/Creatinine Ratio 16.0, PT 12.0, INR 1.10, CBC w Diff NO MAN DIFF REQ, RBC 3.32 L, MCV 85.8, MCH 28.4, MCHC 33.0, RDW 15.6 H, MPV 9.3, Gran % 74.2, Lymphocytes % 11.6 L, Monocytes % 12.2 H, Eosinophils % 1.5, Basophils % 0.5, Absolute Granulocytes 5.7, Absolute Lymphocytes 0.9 L, Absolute Monocytes 0.9 H, Absolute Eosinophils 0.1, Absolute Basophils 0 09/30/172045: Urine Color YEL, Urine Clarity CLDY H, Urine pH 6.0, Ur Specific May >= 1.030, Urine Protein 30 H, Urine Ketones NEG, Urine Nitrite POS H, Urine Bilirubin NEG, Urine Urobilinogen 0.2, Ur Leukocyte Esterase LARGE H, Ur Microscopic SEDIMENT EXAMINED, Urine RBC 5-10 H, Urine WBC PACKD H, Ur Epithelial Cells FEW, Urine Bacteria MANY H, Urine Hemoglobin MOD H, Urine Glucose NEG Assessment/Plan Assessment/Plan Assessment: 1. Abnormal ECG / RBBB 2. Heart murmur 3. Left femoral neck fracture 4. Dementia 5. ELIAN 6. HTN 7. HLD Recommendations: - THe patient has an abnormal ECG with RBBB which appears unchanged from previously. HIs examination is otherwise essentially unremarkable and he has no known symptoms or cardiac issues. - In view of the available information and the type of surgery planned, I believe the patient to be stable for said surgery from a cardiac standpoint. I have discussed this with the patient's who understands the attendant risks of the surgery and agrees. -Echocardiogram reviewed and shows no significant cardiac abnormalities. I reviewed the results of the echocardiogram with the patient's as well. - Continue regular meds including BBs Continue telemetry? No
[2017-10-01] MEDS ORDERED: FERROUS SULFAT325 M2 PO (17:22)
[2017-10-01] MEDS ORDERED: CEFDINIR300 M1 PO (17:25)
--- NOTE | 2017-10-01 17:26 | Patient Discharge Instructions ---
Discharge Instructions General Discharge Information You were seen/treated for: L. Femur fracture You had these procedures: Non-cemented L. hip arthroplasty Watch for these problems: Fever, Shortness of Breath, Chest pain, bleeding Special Instructions: Please complete antibiotics course as directed. Please follow up with PCP and Orthopedic Surgeon Diet Continue normal diet: Yes Recommended Diet: Heart Healthy Activity Full Activity/No Limits: No Acute Coronary Syndrome Inclusion Criteria At DC or during hospital stay patient has or had the following: ACS DIAGNOSIS No Discharge Core Measures Meds if any: Prescribed or Continued at Discharge Meds if any: NOT Prescribed or Continued at Discharge Congestive Heart Failure Inclusion Criteria At DC or during hospital stay patient has or had the following: CHF DIAGNOSIS No Discharge Core Measures Meds if any: Prescribed or Continued at Discharge Meds if any: NOT Prescribed or Continued at Discharge Cerebrovascular accident Inclusion Criteria At DC or during hospital stay patient has or had the following: CVA/TIA Diagnosis No Discharge Core Measures Meds if any: Prescribed or Continued at Discharge Meds if any: NOT Prescribed or Continued at Discharge Venous thromboembolism Inclusion Criteria VTE Diagnosis No VTE Type NONE VTE Confirmed by (Test) NONE Discharge Core Measures - Per Current guidelines, there needs to be overlap - treatment for the first 5 days of Warfarin therapy. - If discharged on Warfarin prior to 5 days of - overlap therapy, the patient will need to be - assessed for post discharge needs including - *Post discharge parental anticoagulation - *Warfarin and/or parental anticoagulation education - *Follow up date to check INR post discharge At least 5 days overlap therapy as Inpatient Yes Meds if any: Prescribed or Continued at Discharge Note: Overlap Therapy is Warfarin and Anticoagulant Meds if any: NOT Prescribed or Continued at Discharge
[2017-10-01 23:10] VITALS: BP 170/78
[2017-10-02 07:34] VITALS: BP 114/58
--- NOTE | 2017-10-02 10:10 | PN- Housestaff ---
See Addendum Subjective Follow-up For: left femur fx s/p fall Complaints: no complaints Subjective: Patient has alzheimers and unable to give an adequate history or update. He has no complaints though. He is unaware of the reason for his hospitalization. Review of Systems Constitutional: Reports: see HPI. Objective Last 24 Hrs of Vital Signs/I&O Vital Signs Date Time Temp Pulse Resp B/P B/P Pulse O2 O2 Flow FiO2 Mean Ox Delivery Rate 10/02 1001 88 124/62 10/02 1001 88 124/62 10/02 0734 99.3 89 18 114/58 96 10/02 0423 98.4 10/01 2310 101.5 86 20 170/78 96 10/01 1601 Room Air Room Air 10/01 1415 98.1 85 20 130/60 94 Room Air Intake & Output 10/02 1600 10/02 0800 10/02 0000 Intake Total 240 100 Output Total Balance 240 100 Intake, Oral 240 100 Number 1 3 Bowel Movements Physical Exam General Appearance: Alert, Cooperative, No Acute Distress Skin: abrasion left cheek steri strip in place, ecchymosis to BUE Skin Temp/Moisture Exam: Warm/Dry HEENT: Atraumatic, PERRLA Neck: Supple Cardiovascular: Regular Rate, Normal S1, Normal S2 Lungs: Clear to Auscultation Abdomen: Normal Bowel Sounds, Soft, No Tenderness Extremities: No Edema, Normal Pulses, left hip with surgical dressing c/d/i. no surrounding erythema or edema Assessment/Plan Assessment: Mr. Schwartz is a 81 year-old gentleman with past medical history significant for Alzheimer's disease, hyperlipidemia, iron deficiency anemia, gout, hypertension, major depressive disorder, type 2 diabetes, osteoarthritis, right bundle branch block who was brought to the hospital from [facility] ([facility]) after a mechanical fall with laceration to his Left cheek, and subsequent imaging showed fracture of left femoral neck. Problem List: 1. Fall 2. Left. Femoral neck fracture 3. Alzhemeir's dementia 4. Hypertension 5. Hyperlipidemia #Fall: Maxillofacial CT negative for facial bone fractures, CT Cervical spine is negative for acute intracranial injury, no acute injury to the cervical spine - PT recs: max assist-STR #Left Femoral neck fracture- 2/2 fall. Pelvic X-ray on 7/17/18 shows left femoral neck fracture, suspicious for non-displaced left pelvic fracture. Pelvic CT on 09/28/17 positive for Acute mildly displaced and angulated fracture through the left femoral neck. Plan: - POD 2 Left tara arthroplasty - pain control -Started Warfarin 10/01; INR 1.10 this morning. Goal for therapeutic range of 2- 3. Will continue to monitor daily INR and adjust dose accordingly. # RBBB: - unchanged from previously, per cardio - cleared for surgery by cardiology # Alzheimer's dementia: - Memantine 10mg BID - Donepezil 10mg # Hypertension - Metoprolol 25mg # Hyperlipidemia - Atorvastatin 10mg DVT prophylaxis: ALPS/heparin/coumadin Dispo: will need placement at STR per PT recs; case management to arrange Problem List: 1. Fracture of femoral neck, left 2. Fall 3. Dementia Pain Ratin Pain Location: none Pain Goal: Remain pain free Pain Plan: see a/p Tomorrow's Labs & Rationales: INR
[2017-10-02 14:58] VITALS: BP 134/66
[2017-10-02 21:04] VITALS: BP 154/80
[2017-10-03 07:05] VITALS: BP 146/74
--- NOTE | 2017-10-03 07:52 | PN- Orthopedic ---
Subjective Subjective: Patient awake but confused, at baseline Objective Vital Signs and I&Os Vital Signs Date Time Temp Pulse Resp B/P B/P Pulse O2 O2 Flow FiO2 Mean Ox Delivery Rate 10/03 07 98.1 82 20 146/74 97 10/02 2104 99.3 78 20 154/80 98 Room Air 10/02 1458 97.8 87 20 134/66 96 Room Air 10/02 1001 88 124/62 10/02 1001 88 124/62 Intake & Output 10/03 0810/03 0000 10/02 1600 10/02 0810/02 0000 10/01 1600 Intake Total 151 613 8588 518 980 8053 Output Total 250 Balance 238 452 9487 240 100 830 Intake, IV 600 570 600 600 Intake, Oral 300 480 240 100 480 Number 1 2 1 3 3 Bowel Movements Output, Urine 250 Patient 146 lb Weight Physical Exam: VSS afebrile left hip -wound- CDI without drainage, dressings changed calves soft bilaterally good perfusion distally, feet warm Current Medications: Current Medications Sig/Jyoti Start time Last Medication Dose Route Stop Time Status Admin Acetaminophen 1,000 MG Q8 10/01 1400 AC 10/03 IV 0458 Amlodipine Besylate 5 MG DAILY 10/01 0900 AC 10/02 PO 1001 Atorvastatin Calcium 10 MG 1700 10/01 1700 AC 10/02 PO 1629 Bisacodyl 10 MG DAILY NEEDED PRN 09/30 171 AC CO Ceftriaxone Sodium 1,000 MG DAILY 10/01 0930 AC 10/02 IV 0958 Docusate Sodium 100 MG BID 09/30 2100 AC 10/02 PO 2026 Donepezil HCl 10 MG QPM 09/30 2100 AC 10/02 PO 2026 Escitalopram Oxalate 20 MG DAILY 10/01 0900 AC 10/02 PO 0957 Ferrous Sulfate 325 MG BID 09/30 2100 AC 10/02 PO 2026 Heparin Sodium 5,000 UNIT Q8 09/30 2200 AC 10/03 (Porcine) SC 0458 Insulin Aspart 0 TIDAC 10/01 0800 AC 10/02 SC 1630 Magnesium Hydroxide 30 ML DAILY NEEDED PRN 09/30 1715 AC PO Memantine 10 MG BID 09/30 2100 AC 10/02 PO 202 Metoprolol Succinate 25 MG DAILY 10/01 0900 AC 10/02 PO 1001 Multivitamins 1 TAB DAILY 10/01 0900 AC 10/02 Therapeutic PO 0958 Ondansetron HCl 4 MG Q6P PRN 09/30 1430 AC IV Oxycodone HCl 5 MG Q6P PRN 10/01 0715 AC PO Senna/Docusate Sodium 2 TAB DAILY 10/01 0900 AC 10/01 PO 1000 Sodium Chloride 1,000 ML .[id number] 09/30 1430 AC 10/02 IV 2134 Sodium Phosphate 1 UNIT DAILY NEEDED PRN 09/30 1715 AC CO Warfarin Sodium 5 MG COUMADIN 1700 ONE 10/02 1700 DC 10/02 PO 10/02 1701 1629 Results Last 48 Hours of Labs: Laboratory Tests 10/03 0725 Coagulation PT Pending INR Pending Assessment/Plan Assessment/Plan POD 2 Left hip noncemented hemiarthroplasty for Left hip displaced femoral neck fracture. coumadin therapy for DVT prophalaxis WBAT with assistance - continue with PT will need a follow-up appoint with office in 2 weeks for staple removal and wound check Problem List: 1. Dementia 2. Head trauma 3. Forehead laceration 4. Fracture of femoral neck, left 5. Fall Core Measures Venous Thromboembolism VTE Risk Factors Age>40 No Mechanical VTE Prophylaxis d/t Medical Contraindication No VTE Pharm Prophylaxis d/t NA PharmProphylax ordered
--- NOTE | 2017-10-03 10:03 | PN- Housestaff ---
See Addendum Subjective Follow-up For: fall with left femur fx Complaints: no complaints Subjective: Patient has dementia and confused at baseline. No complaints or signs of distress this morning. Review of Systems Constitutional: Reports: see HPI. Objective Last 24 Hrs of Vital Signs/I&O Vital Signs Date Time Temp Pulse Resp B/P B/P Pulse O2 O2 Flow FiO2 Mean Ox Delivery Rate 10/03 0846 88 130/68 10/03 0846 88 130/68 10/03 0705 98.1 82 20 146/74 97 10/02 2104 99.3 78 20 154/80 98 Room Air 10/02 1458 97.8 87 20 134/66 96 Room Air Intake & Output 10/03 1600 10/03 0800 10/03 0000 Intake Total 600 870 Output Total Balance 600 870 Intake, IV 600 570 Intake, Oral 300 Number 1 Bowel Movements Physical Exam General Appearance: Alert, Cooperative, No Acute Distress Skin: No Rashes, ecchymosis to BUE, left cheek abrasion with steri strip in place Skin Temp/Moisture Exam: Warm/Dry HEENT: Atraumatic, PERRLA Neck: Supple Cardiovascular: Regular Rate, Normal S1, Normal S2 Lungs: Clear to Auscultation Abdomen: Normal Bowel Sounds, Soft, No Tenderness Extremities: No Edema, left hip with surgical dressing in place c/d/i without surrounding erythema or sign of infection. motor/sensory intact LLE Assessment/Plan Assessment: Mr. Schwartz is a 81 year-old gentleman with past medical history significant for Alzheimer's disease, hyperlipidemia, iron deficiency anemia, gout, hypertension, major depressive disorder, type 2 diabetes, osteoarthritis, right bundle branch block who was brought to the hospital from [facility] ([facility]) after a mechanical fall with laceration to his Left cheek, and subsequent imaging showed fracture of left femoral neck. Problem List: 1. Fall 2. Left. Femoral neck fracture 3. Alzhemeir's dementia 4. Hypertension 5. Hyperlipidemia #Fall: Maxillofacial CT negative for facial bone fractures, CT Cervical spine is negative for acute intracranial injury, no acute injury to the cervical spine - PT recs: max assist-[facility] #Left Femoral neck fracture- 2/2 fall. Pelvic X-ray on 09/28/17 shows left femoral neck fracture, suspicious for non-displaced left pelvic fracture. Pelvic CT on 09/28/17 positive for Acute mildly displaced and angulated fracture through the left femoral neck. Plan: - POD 3 Left tara arthroplasty - pain control -Started Warfarin 10/01; INR 4.16 this morning. Will hold Warfarin dose today. Goal for therapeutic range of 2-3. Will continue to monitor daily INR and adjust dose accordingly. # RBBB: - unchanged from previously, per cardio - cleared for surgery by cardiology # Alzheimer's dementia: - Memantine 10mg BID - Donepezil 10mg # Hypertension - Metoprolol 25mg # Hyperlipidemia - Atorvastatin 10mg DVT prophylaxis: ALPS/heparin/coumadin Dispo: will need placement at [facility] per PT recs; case management to arrange Problem List: 1. Fall 2. Fracture of femoral neck, left Pain Ratin Pain Location: none Pain Goal: Remain pain free Pain Plan: see a/p Tomorrow's Labs & Rationales: inr
[2017-10-03 14:39] VITALS: BP 148/68
[2017-10-03 22:47] VITALS: BP 144/90
[2017-10-04 06:05] VITALS: BP 135/75
--- NOTE | 2017-10-04 07:23 | PN- Housestaff ---
See Addendum Subjective Follow-up For: Loan femoral fracture Subjective: Patient had advanced dementia at baseline, is confused about surrounding, believes he is in [place], does not know president or year. Is lying in bed, seem comfortable. Review of Systems Constitutional: Reports: no symptoms. Objective Last 24 Hrs of Vital Signs/I&O Vital Signs Date Time Temp Pulse Resp B/P B/P Pulse O2 O2 Flow FiO2 Mean Ox Delivery Rate 10/04 0605 98.4 90 18 135/75 94 10/03 2247 99.3 88 20 144/90 98 Room Air 10/03 1439 97.9 90 18 148/68 97 Room Air 10/03 0846 88 130/68 10/03 0846 88 130/68 Intake & Output 10/04 0800 10/04 0000 10/03 1600 Intake Total 480 250 840 Output Total Balance 480 250 840 Intake, IV 240 10 120 Intake, Oral 240 240 720 Number 0 2 4 Bowel Movements Physical Exam General Appearance: Alert, Not oriented to Timer, place or person Skin: Hematoma's present bilat. on arms HEENT: Atraumatic, EOMI Cardiovascular: Regular Rate, Normal S1, Normal S2 Lungs: Clear to Auscultation, Normal Air Movement Abdomen: Normal Bowel Sounds, Soft, No Tenderness Extremities: L. hip covered in dressing, serous-sanginous discharge present on dressing Assessment/Plan Assessment: Mr. Schwartz is a 81 year-old gentleman with past medical history significant for Alzheimer's disease, hyperlipidemia, iron deficiency anemia, gout, hypertension, major depressive disorder, type 2 diabetes, osteoarthritis, right bundle branch block who was brought to the hospital from [facility] ([facility]) after a mechanical fall with laceration to his Left cheek, and subsequent imaging showed fracture of left femoral neck. Problem List: 1. Fall 2. Left. Femoral neck fracture 3. Alzhemeir's dementia 4. Hypertension 5. Hyperlipidemia #Fall: Maxillofacial CT negative for facial bone fractures, CT Cervical spine is negative for acute intracranial injury, no acute injury to the cervical spine - PT recs: max assist-[facility] #Left Femoral neck fracture- / fall. Pelvic X-ray on 09/28/17 shows left femoral neck fracture, suspicious for non-displaced left pelvic fracture. Pelvic CT on 09/28/17 positive for Acute mildly displaced and angulated fracture through the left femoral neck. Plan: - POD 3 Left tara arthroplasty - pain control -Started Warfarin 10/01; INR 4.28 this morning. Will hold Warfarin dose today. Goal for therapeutic range of 2-3. Patient will be discharged to [facility] with Warfarin 2 mg and instrusted to titrate to INR of 2-3 # RBBB: - unchanged from previously, per cardio - cleared for surgery by cardiology # Alzheimer's dementia: - Memantine 10mg BID - Donepezil 10mg # Hypertension - Metoprolol 25mg # Hyperlipidemia - Atorvastatin 10mg DVT prophylaxis: ALPS/heparin/coumadin Will discharge patient to [facility] ([facility]) today. WIll discharge with Amoxicillin 875mg PO BID and Warfain 2mg instructed to titrate to INR goal of 2- 3. Problem List: 1. Fall Pain Ratin Pain Location: patient uable to verablize Pain Goal: Pain 4 or less Pain Plan: tylenol Tomorrow's Labs & Rationales: n/a
[2017-10-04 08:28] LABS: PT 47.3 SEC (9.4-12.5)
[2017-10-04] MEDS ORDERED: AMOXICILLI250 MG/51 PO (09:05)
[2017-10-04] MEDS ORDERED: COUMADIN2 M1 PO (13:34)
[2017-10-04 13:50] VITALS: BP 148/93
[2017-10-04 15:49] VITALS: BP 148/93
[2017-10-04] MEDS ORDERED: ASPIRIN81 M4 PO (15:56)
== END 2017-10-04 17:30 | DRG 956 ==
LOC: ERH 15:27 → ERHI 18:53 → 2NB 18:53 → ENRESERV 21:01 → ENTRNSPT 21:59 → EDTRNSPT 22:18 → EDTRNSPTSTS 22:18 → 2NB 22:25 → CMPTRNSPT 22:33 → 2NB 09-29 07:48 → ENTRNSPT 09-30 15:56 → EDTRNSPTSTS 09-30 16:17 → CMPTRNSPT 09-30 16:33 → 2NB 10-01 07:30
PROVIDERS: Internal Medicine; Physician Assistant; Physician Assistant Surgical
PROC: 0SRS01A Replacement of Left Hip Joint, Femoral Surface with Metal Synthetic Substitute, Uncemented, Open Approach (ICD-10-PCS; principal; 2017-09-30)
DX: S72.002A Fracture of unspecified part of neck of left femur, initial encounter for closed fracture (principal); S32.9XXA Fracture of unspecified parts of lumbosacral spine and pelvis, initial encounter for closed fracture; N17.9 Acute kidney failure, unspecified; I10 Essential (primary) hypertension; E78.5 Hyperlipidemia, unspecified; W19.XXXA Unspecified fall, initial encounter; I45.10 Unspecified right bundle-branch block; G30.9 Alzheimer's disease, unspecified; F02.80 Dementia in other diseases classified elsewhere, unspecified severity, without behavioral disturbance, psychotic disturbance, mood disturbance, and anxiety; F32.9 Major depressive disorder, single episode, unspecified; S01.412A Laceration without foreign body of left cheek and temporomandibular area, initial encounter; D50.9 Iron deficiency anemia, unspecified; E11.9 Type 2 diabetes mellitus without complications; M10.9 Gout, unspecified; E11.22 Type 2 diabetes mellitus with diabetic chronic kidney disease; I12.9 Hypertensive chronic kidney disease with stage 1 through stage 4 chronic kidney disease, or unspecified chronic kidney disease; N18.3 Chronic kidney disease, stage 3 (moderate); R01.1 Cardiac murmur, unspecified; R94.31 Abnormal electrocardiogram [ECG] [EKG]
CPT/HCPCS: 2NBP; 36415; 36592; 73501; 73502-LT; 74176; 81001; 82436; 86920; 87086; 93005; 93010; 93306; 96374; 97161-GP; 97530-GO; J0131; J0696; J1644; J1815; J2405; J3370; J3490; J7040; J7042; P9016